=== PATIENT | female | born 1990 | race Caucasian/White ===

== ENCOUNTER 2020-09-19 11:37 | Emergency (ER) | payer SELFPAY ==
--- OUTSIDE RECORDS SUMMARY | 2020-09-19 11:51 | XMS REPORT | Continuity of Care Document ---
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 DIOXIDE (test code = CO2) 23.9 mmol/l 21.0-33.0 N ANION GAP (test code = GAP) 13.4 0-20 N GLUCOSE (test code = GLU) 113 mg/dl 70.0-110.0 H BLOOD UREA NITROGEN (test code = 10 mg/dl 7.0-18.0 N BUN) CREATININE (test code = CREAT) 0.61 mg/dL 0.60-1.30 N GFR NON BLACK (test code = 122 mL/min 105-110 H GFRNONBLACK) GFR BLACK (test code = GFRBLACK) 148 mL/min 127-133 H CALCIUM (test code = CA) 9.3 mg/dl 8.0-10.5 N [id number] 16:44:00 Test Item Value Reference Range Interpretation Comments TROPONIN-I (test <0.02 NG/ML 0.00-0.06 N REFERENCE R ASHUTOSH code = TROPI) TROPONIN I HEA LTHY INDIVIDUALS: < 0.06 ng/mL R/O ISCHE ALEX: 0.07 - 0.60 ng/ mL CUT-OFF RANGE F OR AMI: 0.60 - 1.5 ng/m L [id number] 16:37:00 Test Item Value Reference Range Interpretation Comments D-DIMER/FSP 387 ng/mLFEU 0-500 N Thrombosis and/ or Pulmonary (test code = Embolism and th e DDIMER) clinicalcut-off value for exclusion (500 ng/mL FEU) of theseconditions is validated by the manufact urer of the method. A negat luis D-Dimer result when com bined with a clinicalassessm ent of low pretest probabi lity has been shown to havea high negative predictive valu e of DVT or PE. D-Dimer saira ues >500 ng/mL FEU are n ot diagnostic for DVT,PE, or DIC without other confirmat ory tests and appropriateclin ical evaluations. BASIC METABOLIC [id number] 16:35:00 Test Item Value Reference Range Interpretation Comments SODIUM (test code = NA) 134 mmol/l 134.0-147.0 N POTASSIUM (test code = K) 3.3 mmol/L 3.6-5.2 L CHLORIDE (test code = CL) 100 mmol/l 98.0-107.0 N CARBON DIOXIDE (test code = CO2) 23.9 mmol/l 21.0-33.0 N ANION GAP (test code = GAP) 13.4 0-20 N GLUCOSE (test code = GLU) mg/dl 70.0-110.0 BLOOD UREA NITROGEN (test code = mg/dl 7.0-18.0 BUN) CREATININE (test code = CREAT) mg/dL 0.60-1.30 GFR NON BLACK (test code = mL/min 105-110 GFRNONBLACK) GFR BLACK (test code = GFRBLACK) mL/min 127-133 CALCIUM (test code = CA) mg/dl 8.0-10.5 [id number] 16:35:00 Test Item Value Reference Range Interpretation Comments TROPONIN-I (test code = TROPI) NG/ML 0.00-0.06 CBC W/AUTO [id number] 16:30:00 Test Item Value Reference Range Interpretation Comments WHITE BLOOD CELL (test code = 11.6 K/mm3 4.5-11.0 H WBC) RED BLOOD CELL (test code = 3.87 M/mm3 3.80-5.20 N RBC) HEMOGLOBIN (test code = HGB) 12.8 gm/dL 12.0-16.0 N HEMATOCRIT (test code = HCT) 39.3 % 36.0-48.0 N MEAN CELL VOLUME (test code = 101.6 UM3 82.0-99.0 H MCV) MEAN CELL HGB (test code = MCH) 33.1 UUG 25.5-32.5 H MEAN CELL HGB CONCETRATION 32.6 gm/dL 29.0-35.5 N (test code = MCHC) RED CELL DISTRIBUTION WIDTH 15.9 % 11.5-15.0 H (test code = RDW) RED CELL DISTRIBUTION WIDTH SD 59.7 fL 34.8-50.2 H (test code = RDW-SD) PLATELET COUNT (test code = 472 K/mm3 150-400 H PLT) MEAN PLATELET VOLUME (test code 9.3 fl 7.4-10.4 N = MPV) NEUTROPHIL % (test code = NT%) 59.8 % 49.0-76.0 N IMMATURE GRANULOCYTE % (test 0.6 % 0.0-0.4 H code = IG%) LYMPHOCYTE % (test code = LY%) 28.5 % 23.0-38.0 N MONOCYTE % (test code = MO%) 8.2 % 1.0-10.0 N EOSINOPHIL % (test code = EO%) 2.4 % 1.0-5.0 N BASOPHIL % (test code = BA%) 0.5 % 0.0-1.0 N NUCLEATED RBC % (test code = 0.0 % 0.0-0.1 N NRBC%) NEUTROPHIL # (test code = NT#) 6.9 K/mm3 2.4-6.3 H IMMATURE GRANULOCYTE # (test 0.07 x10 3/uL 0.00-0.07 N code = IG#) LYMPHOCYTE # (test code = LY#) 3.3 K/mm3 1.2-4.0 N MONOCYTE # (test code = MO#) 1.0 K/mm3 0.0-0.6 H EOSINOPHIL # (test code = EO#) 0.3 K/MM3 0.0-0.7 N BASOPHIL # (test code = BA#) 0.1 K/mm3 0.0-0.2 N NUCLEATED RBC # (test code = 0.00 X10 3uL 0.00-0.01 N NRBC#) CBC W/AUTO [id number] 12:27:00 Test Item Value Reference Range Interpretation Comments WHITE BLOOD CELL (test code = 10.6 x10 3/uL 4.5-11.0 N WBC) RED BLOOD CELL (test code = 3.35 x10 6/uL 3.54-5.02 L RBC) HEMOGLOBIN (test code = HGB) 11.2 g/dL 11.0-15.0 N HEMATOCRIT (test code = HCT) 35.7 % 33.0-45.0 N MEAN CELL VOLUME (test code = 106.6 fL 81.0-99.0 H MCV) MEAN CELL HGB (test code = MCH) 33.4 pg 27.0-33.0 H MEAN CELL HGB CONCETRATION 31.4 g/dL 33.0-37.0 L (test code = MCHC) RED CELL DISTRIBUTION WIDTH CV 17.2 % 11.5-14.5 H (test code = RDW) RED CELL DISTRIBUTION WIDTH SD 68.0 fL 37.0-54.0 H (test code = RDW-SD) PLATELET COUNT (test code = 781 x10 3/uL 150-400 H PLT) MEAN PLATELET VOLUME (test code 9.0 fL 7.0-9.0 N = MPV) NEUTROPHIL % (test code = NT%) 58.5 % 56.0-77.0 N IMMATURE GRANULOCYTE % (test 0.8 % 0.0-2.0 N code = IG%) LYMPHOCYTE % (test code = LY%) 30.4 % 14.0-32.0 N MONOCYTE % (test code = MO%) 6.6 % 4.8-9.0 N EOSINOPHIL % (test code = EO%) 2.9 % 0.3-3.7 N BASOPHIL % (test code = BA%) 0.8 % 0.0-2.0 N NUCLEATED RBC % (test code = 0.0 % 0-0 N NRBC%) NEUTROPHIL # (test code = NT#) 6.20 x10 3/uL 2.0-7.6 N IMMATURE GRANULOCYTE # (test 0.09 x10 3/uL 0.00-0.03 H code = IG#) LYMPHOCYTE # (test code = LY#) 3.22 x10 3/uL 1.0-3.8 N MONOCYTE # (test code = MO#) 0.70 x10 3/uL 0.1-0.8 N EOSINOPHIL # (test code = EO#) 0.31 x10 3/uL 0.0-0.2 H BASOPHIL # (test code = BA#) 0.08 x10 3/uL 0.0-0.2 N NUCLEATED RBC # (test code = 0.00 x10 3/uL 0.0-0.1 N NRBC#) MANUAL DIFF REQUIRED (test code NO = MDIFF) RBC [id number] 12:27:00 Test Item Value Reference Range Interpretation Comments POLYCHROMASIA (test code 1+ = POLC) POIKILOCYTOSIS (test code SLIGHT FE W STOMATOCYTES SEEN = POIK) ANISOCYTOSIS (test code = 1+ ANISO) MACROCYTOSIS (test code = 1+ MACR) TARGET CELLS (test code = SEEN TGT) OVALOCYTES (test code = FEW OVAL) - CT ABD PELVIS [id number] 11:38:00 [facility] 1990 Sex: F Name: NNAMDI BARTH [facility] : 1990Age/S: 29 / F [address] [place] [address] Unit #: [id number] Loc: [place] [address] Phys: Paco Ruiz Acct: [id number] Dis Date: Status: REG ER PHONE#: [phone] Exam Date: 06/07/2020 1115 FAX #: [phone] Reason:Diffuse abdominal tenderness, post op with JOHN PAUL d EXAMS: CPT CODE: [id number] CT ABD PELVIS W/CONT 87537 Clinical Indication: Diffuse abdominal tenderness. Postop with JOHN PAUL drain. Comparison: 05/22/2020. TECHNIQUE: Contiguous axial CT images of the abdomen and pelvis were acquired following administration of 100 mL Isovue-300 IV contrast. Oral contrast was not administered. Coronal and sagittal reconstructions were obtained. CT imaging performed at this location utilizes radiation dose optimization techniques which include one or more of the following: -Automated exposure control - Adjustment of the mA and/or kV according to patientsize -Use of iterative reconstruction technique CT Radiation Dose DLP 204.1 mGy-cm FINDINGS: Minimal dependent atelectasis. Visualized cardiac apex is unremarkable. Gallbladder is surgically absent. Common bile duct stent is in place. Intrahepatic bile ducts are decompressed. An infrahepatic drainage catheter is in place extending across the midline, anterior to the stomach. Spleen, pancreas, adrenal glands, and kidneys are unremarkable. No free fluid or pneumoperitoneum. Stomach and small bowelare nondistended. Appendix is nondilated. Colon is unremarkable. Urinary bladder is nondistended. Uterus and adnexal regions are unremarkable. No destructive osseous lesion. IMPRESSION: 1. Status post cholecystectomy with common bile duct stent in place. An infrahepatic drainage catheter is in place extending across midline into the left abdomen. No free fluid or fluid collection. SL: [id number] PAGE 1 Signed Report (CONTINUED) Name: NNAMDI BARTH [facility] : 1990 Age/S: 29 / F [address] [place] [address] Blvd Unit #: [id number] Loc: [place] [address] Phys: Paco Ruiz Acct: [id number] Dis Date: Status: REG ER PHONE #: [phone] Exam Date: 06/07/2020 1115 FAX #: [phone] Reason: Diffuse abdominal tenderness, post op with JOHN PAUL d EXAMS: CPT CODE: [id number] CT ABD PELVIS W/CONT 84111 <Continued> at 1138 Reported and signed by: Cameron Dixon M.D. CC: Ami Poe MD; Paco PRATER Technologist:RT Marita(R); Kateryna CTDI: DLP: Trnscb Date/Time: 06/07/2020 (1138) [id number] Orig Print D/T: S: 06/07/2020 (1142) PAGE 2 Signed ReportCOMPREHENSIVE METABOLIC [id number] 11:37:00 Test Item Value Reference Range Interpretation Comments SODIUM (test code = NA) 137 mEq/L 134-147 N POTASSIUM (test code = 3.6 mEq/L 3.4-5.0 N K) CHLORIDE (test code = 106 mEq/L 100-108 N CL) CARBON DIOXIDE (test 23 mEq/L 21-33 N code = CO2) ANION GAP (test code = 12 0-20 N GAP) GLUCOSE (test code = 131 mg/dL 70-110 H GLU) BLOOD UREA NITROGEN < 5 mg/dL 7-18 L (test code = BUN) GLOMERULAR FILTRATION 144.9 105-110 H Units of measure = RATE (test code = GFR) ml/mi n/1.73 m2 CREATININE (test code = 0.5 mg/dL 0.6-1.3 L CREAT) TOTAL PROTEIN (test 7.2 g/dL 6.4-8.2 N code = PROT) ALBUMIN (test code = 3.10 g/dL 3.4-5.0 L ALB) CALCIUM (test code = 9.3 mg/dL 8.0-10.5 N CA) BILIRUBIN TOTAL (test 0.30 mg/dL 0.0-1.0 N code = BILT) SGOT/AST (test code = 30 IUnit/L 15-37 N AST) SGPT/ALT (test code = 9 IUnit/L 30-65 L ALT) ALKALINE PHOSPHATASE 182 IUnit/L 20-125 H TOTAL (test code = ALKP) [id number] 11:37:00 Test Item Value Reference Range Interpretation Comments LIPASE (test code = LIP) 25 U/L 13-57 N URINALYSIS [id number] 10:57:00 Test Item Value Reference Range Interpretation Comments UA COLOR (test code = COLU) YELLOW YEL/STRAW UA APPEARANCE (test code = APPU) CLEAR CLEAR UA GLUCOSE DIPSTICK (test code = NEGATIVE NEGATIVE DGLUU) UA BILIRUBIN DIPSTICK (test code NEGATIVE NEGATIVE = BILU) UA KETONE DIPSTICK (test code = NEGATIVE NEGATIVE KETU) UA SPECIFIC GRAVITY (test code = 1.014 1.005-1.030 N SGU) UA BLOOD DIPSTICK (test code = NEGATIVE NEGATIVE SUKHDEEP) UA PH DIPSTICK (test code = CHLOE) 6.0 5.0-7.0 N UA PROTEIN DIPSTICK (test code = NEGATIVE NEGATIVE PROU) UA UROBILINIOGEN DIPSTICK (test 0.2 mg/dL 0.2-1.0 code = URO) UA NITRITE DIPSTICK (test code = NEGATIVE NEGATIVE MADONNA) UA LEUKOCYTE ESTERASE DIPSTICK NEGATIVE NEGATIVE (test code = LEUU) UA RBC (test code = RBCU) 0-3 RBC/HPF 0-3 UA WBC NO REFLEX (test code = 0-3 WBC/HPF 0-3 WBCUCL) UA BACTERIA (test code = BACU) TRACE /HPF NONE SEEN UA SQUAMOUS CELLS (test code = 6-10 /HPF NONE SEEN A SQU) UA MUCUS (test code = MUCU) TRACE /LPF NONE SEEN UR HCG [id number] 10:56:00 Test Item Value Reference Range Interpretation Comments UR HCG QUAL (test code = HCGQLU) NEGATIVE NEGATIVE CBC W/AUTO [id number] 10:47:00 Test Item Value Reference Range Interpretation Comments WHITE BLOOD CELL (test code = 10.6 x10 3/uL 4.5-11.0 N WBC) RED BLOOD CELL (test code = 3.35 x10 6/uL 3.54-5.02 L RBC) HEMOGLOBIN (test code = HGB) 11.2 g/dL 11.0-15.0 N HEMATOCRIT (test code = HCT) 35.7 % 33.0-45.0 N MEAN CELL VOLUME (test code = 106.6 fL 81.0-99.0 H MCV) MEAN CELL HGB (test code = MCH) 33.4 pg 27.0-33.0 H MEAN CELL HGB CONCETRATION 31.4 g/dL 33.0-37.0 L (test code = MCHC) RED CELL DISTRIBUTION WIDTH CV 17.2 % 11.5-14.5 H (test code = RDW) RED CELL DISTRIBUTION WIDTH SD 68.0 fL 37.0-54.0 H (test code = RDW-SD) PLATELET COUNT (test code = 781 x10 3/uL 150-400 H PLT) MEAN PLATELET VOLUME (test code 9.0 fL 7.0-9.0 N = MPV) NEUTROPHIL % (test code = NT%) 58.5 % 56.0-77.0 N IMMATURE GRANULOCYTE % (test 0.8 % 0.0-2.0 N code = IG%) LYMPHOCYTE % (test code = LY%) 30.4 % 14.0-32.0 N MONOCYTE % (test code = MO%) 6.6 % 4.8-9.0 N EOSINOPHIL % (test code = EO%) 2.9 % 0.3-3.7 N BASOPHIL % (test code = BA%) 0.8 % 0.0-2.0 N NUCLEATED RBC % (test code = 0.0 % 0-0 N NRBC%) NEUTROPHIL # (test code = NT#) 6.20 x10 3/uL 2.0-7.6 N IMMATURE GRANULOCYTE # (test 0.09 x10 3/uL 0.00-0.03 H code = IG#) LYMPHOCYTE # (test code = LY#) 3.22 x10 3/uL 1.0-3.8 N MONOCYTE # (test code = MO#) 0.70 x10 3/uL 0.1-0.8 N EOSINOPHIL # (test code = EO#) 0.31 x10 3/uL 0.0-0.2 H BASOPHIL # (test code = BA#) 0.08 x10 3/uL 0.0-0.2 N NUCLEATED RBC # (test code = 0.00 x10 3/uL 0.0-0.1 N NRBC#) MANUAL DIFF REQUIRED (test code NO = MDIFF) RBC [id number] 10:47:00 Test Item Value Reference Range Interpretation Comments ANISOCYTOSIS (test code = ANISO) CBC W/AUTO [id number] 10:47:00 Test Item Value Reference Range Interpretation Comments WHITE BLOOD CELL (test code = 10.6 x10 3/uL 4.5-11.0 N WBC) RED BLOOD CELL (test code = 3.35 x10 6/uL 3.54-5.02 L RBC) HEMOGLOBIN (test code = HGB) 11.2 g/dL 11.0-15.0 N HEMATOCRIT (test code = HCT) 35.7 % 33.0-45.0 N MEAN CELL VOLUME (test code = 106.6 fL 81.0-99.0 H MCV) MEAN CELL HGB (test code = MCH) 33.4 pg 27.0-33.0 H MEAN CELL HGB CONCETRATION 31.4 g/dL 33.0-37.0 L (test code = MCHC) RED CELL DISTRIBUTION WIDTH CV 17.2 % 11.5-14.5 H (test code = RDW) RED CELL DISTRIBUTION WIDTH SD 68.0 fL 37.0-54.0 H (test code = RDW-SD) PLATELET COUNT (test code = 781 x10 3/uL 150-400 H PLT) MEAN PLATELET VOLUME (test code 9.0 fL 7.0-9.0 N = MPV) NEUTROPHIL % (test code = NT%) 58.5 % 56.0-77.0 N IMMATURE GRANULOCYTE % (test 0.8 % 0.0-2.0 N code = IG%) LYMPHOCYTE % (test code = LY%) 30.4 % 14.0-32.0 N MONOCYTE % (test code = MO%) 6.6 % 4.8-9.0 N EOSINOPHIL % (test code = EO%) 2.9 % 0.3-3.7 N BASOPHIL % (test code = BA%) 0.8 % 0.0-2.0 N NUCLEATED RBC % (test code = 0.0 % 0-0 N NRBC%) NEUTROPHIL # (test code = NT#) 6.20 x10 3/uL 2.0-7.6 N IMMATURE GRANULOCYTE # (test 0.09 x10 3/uL 0.00-0.03 H code = IG#) LYMPHOCYTE # (test code = LY#) 3.22 x10 3/uL 1.0-3.8 N MONOCYTE # (test code = MO#) 0.70 x10 3/uL 0.1-0.8 N EOSINOPHIL # (test code = EO#) 0.31 x10 3/uL 0.0-0.2 H BASOPHIL # (test code = BA#) 0.08 x10 3/uL 0.0-0.2 N NUCLEATED RBC # (test code = 0.00 x10 3/uL 0.0-0.1 N NRBC#) MANUAL DIFF REQUIRED (test code NO = MDIFF) RBC [id number] 10:47:00 Test Item Value Reference Range Interpretation Comments ANISOCYTOSIS (test code = ANISO) CBC W/AUTO [id number] 10:40:00 Test Item Value Reference Range Interpretation Comments WHITE BLOOD CELL (test code = WBC) x10 3/uL 4.5-11.0 RED BLOOD CELL (test code = RBC) x10 6/uL 3.54-5.02 HEMOGLOBIN (test code = HGB) 11.2 g/dL 11.0-15.0 N HEMATOCRIT (test code = HCT) 35.7 % 33.0-45.0 N MEAN CELL VOLUME (test code = MCV) fL 81.0-99.0 MEAN CELL HGB (test code = MCH) pg 27.0-33.0 MEAN CELL HGB CONCETRATION (test g/dL 33.0-37.0 code = MCHC) RED CELL DISTRIBUTION WIDTH CV % 11.5-14.5 (test code = RDW) PLATELET COUNT (test code = PLT) x10 3/uL 150-400 NEUTROPHIL % (test code = NT%) % 56.0-77.0 LYMPHOCYTE % (test code = LY%) % 14.0-32.0 NEUTROPHIL # (test code = NT#) x10 3/uL 2.0-7.6 LYMPHOCYTE # (test code = LY#) x10 3/uL 1.0-3.8 MANUAL DIFF REQUIRED (test code = MDIFF) [id number] 12:23:00 Test Item Value Reference Range Interpretation Comments GLUBED (test code = 80 MG/DL 70-110 N Performe d by certified GLUBED) 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 SOFT TISSUE [id number] 16:12:00 [facility] : 1990 Sex: F Name: NNAMDI BARTH [facility] : 1990Age/S: 29 / F [address] [place] [address] Blvd Unit #: [id number] Loc: [place] [address] Phys: Luis Marino MD Acct: [id number] Dis Date: Status: ADM IN PHONE#: [phone] Exam Date: 05/30/2020 1332 FAX #: [phone] Reason:nipple abscess EXAMS: CPT CODE: [id number] US SOFT TISSUE TORSO [id number] PROCEDURE: NONVASCULAR SOFT TISSUE ULTRASOUND INDICATION: nipple abscess; 29-year-old female with complaint of superficial lump right breast present for 2 years with recent "skin eruption and discharge" in the last 2 days COMPARISON: There are no previous relevant studies available for correlation. TECHNIQUE: Sonographic evaluation of the right breast, focused to the region of palpable concern was performed using high resolution B-mode imaging, with supplemental Doppler imaging. FINDINGS: There is a superficial hypoechoic elliptical shaped lesion within the skin layers corresponding to region of palpable concern designated 3:00, 2 cm from the nipple right breast. Internal vascularity. No anechoic components. No foci of marked increased echogenicity to indicate gas. Lesion size estimated 16 x 3 mm in the antiradial plane. There is no abnormality in the visualized breast parenchyma. Please note this does not constitute a formal screening survey of the breast. IMPRESSION: Hypoechoic lesion within the skin compatible with benign finding. Inflamed dermal inclusion cyst suspected, to be correlated with clinical findings. SL: [id number] at 1612 Reported and signed by: Bhavesh Kaufman M.D. CC: Technologist: Kourtney Coronado RDMS(AB); Hannah Thomas RDMS(Rolan)(BR) Trnscb Date/Time: 05/30/2020 (1612) Bert Orig Print D/T: S: 05/30/2020 (1615) Probe: PAGE 1 Signed ReportBASIC METABOLIC [id number] 08:51:00 Test Item Value Reference Range Interpretation Comments SODIUM (test code = NA) 139 mEq/L 134-147 N POTASSIUM (test code = 3.7 mEq/L 3.4-5.0 N K) CHLORIDE (test code = 102 mEq/L 100-108 N CL) CARBON DIOXIDE (test 28 mEq/L 21-33 N code = CO2) ANION GAP (test code = 13 0-20 N GAP) GLUCOSE (test code = 81 mg/dL 70-110 N GLU) BLOOD UREA NITROGEN 5 mg/dL 7-18 L (test code = BUN) GLOMERULAR FILTRATION 98.3 105-110 L Units of measure = RATE (test code = GFR) ml/mi n/1.73 m2 CREATININE (test code = 0.7 mg/dL 0.6-1.3 CREAT) CALCIUM (test code = 9.1 mg/dL 8.0-10.5 N CA) CBC W/AUTO [id number] 08:18:00 Test Item Value Reference Range Interpretation Comments WHITE BLOOD CELL (test code = 10.1 x10 3/uL 4.5-11.0 N WBC) RED BLOOD CELL (test code = 2.85 x10 6/uL 3.54-5.02 L RBC) HEMOGLOBIN (test code = HGB) 9.6 g/dL 11.0-15.0 L HEMATOCRIT (test code = HCT) 31.5 % 33.0-45.0 L MEAN CELL VOLUME (test code = 110.5 fL 81.0-99.0 H MCV) MEAN CELL HGB (test code = MCH) 33.7 pg 27.0-33.0 H MEAN CELL HGB CONCETRATION 30.5 g/dL 33.0-37.0 L (test code = MCHC) RED CELL DISTRIBUTION WIDTH CV 16.1 % 11.5-14.5 H (test code = RDW) RED CELL DISTRIBUTION WIDTH SD 66.6 fL 37.0-54.0 H (test code = RDW-SD) PLATELET COUNT (test code = 594 x10 3/uL 150-400 H PLT) MEAN PLATELET VOLUME (test code 10.4 fL 7.0-9.0 H = MPV) NEUTROPHIL % (test code = NT%) 50.5 % 56.0-77.0 L IMMATURE GRANULOCYTE % (test 0.4 % 0.0-2.0 N code = IG%) LYMPHOCYTE % (test code = LY%) 28.6 % 14.0-32.0 N MONOCYTE % (test code = MO%) 12.5 % 4.8-9.0 H EOSINOPHIL % (test code = EO%) 7.5 % 0.3-3.7 H BASOPHIL % (test code = BA%) 0.5 % 0.0-2.0 N NUCLEATED RBC % (test code = 0.0 % 0-0 N NRBC%) NEUTROPHIL # (test code = NT#) 5.11 x10 3/uL 2.0-7.6 N IMMATURE GRANULOCYTE # (test 0.04 x10 3/uL 0.00-0.03 H code = IG#) LYMPHOCYTE # (test code = LY#) 2.89 x10 3/uL 1.0-3.8 N MONOCYTE # (test code = MO#) 1.26 x10 3/uL 0.1-0.8 H EOSINOPHIL # (test code = EO#) 0.76 x10 3/uL 0.0-0.2 H BASOPHIL # (test code = BA#) 0.05 x10 3/uL 0.0-0.2 N NUCLEATED RBC # (test code = 0.00 x10 3/uL 0.0-0.1 N NRBC#) MANUAL DIFF REQUIRED (test code NO = MDIFF) - XR ABDOMEN 1V ([facility])2020-05-29 15:28:00 [facility] : 1990 Sex: F [place]: [address]: ADM Name: NNAMDI BARTH [facility] [place] : 1990 Age/S: 29/F [address] [place] [address] Unit #: [id number] Loc: [place] [address] Phys: Luis Marino MD Acct: [id number] Dis Date: Status: ADM IN PHONE #: [phone] Exam Date: 05/29/2020 1337 FAX #: [phone] Reason: abd pain EXAMS: CPT CODE: [id number] XR ABDOMEN 1V ([facility]) [id number] PROCEDURE: ABDOMEN SINGLE VIEW INDICATION: 29-year-old female with abdominal pain COMPARISON: Abdominal radiograph 03/19/2020 FINDINGS: Nonobstructive bowel gas pattern. There are no abnormal soft tissue masses or calcifications. Cholecystectomy clips in the right upper quadrant. Common bile duct stent noted projecting over the medial right abdomen. Additional tubing noted projecting over the upper abdomen possibly representing a surgical drain. No acute osseous abnormality. IMPRESSION: 1. No acute abdominal abnormality. SL: [id number] at 1528 Reported and signed by: Collette Rod M.D. CC: Technologist: SMITH Duggan) Trnscrd Date/Time/By: 05/29/2020 (1528) : By: [email or web address] Orig Print D/T: S: 05/29/2020 (1538) PAGE 1 Signed ReportCOMPREHENSIVE METABOLIC [id number] 08:32:00 Test Item Value Reference Range Interpretation Comments SODIUM (test code = NA) 134 mEq/L 134-147 N POTASSIUM (test code = 3.7 mEq/L 3.4-5.0 N K) CHLORIDE (test code = 105 mEq/L 100-108 N CL) CARBON DIOXIDE (test 23 mEq/L 21-33 N code = CO2) ANION GAP (test code = 10 0-20 N GAP) GLUCOSE (test code = 78 mg/dL 70-110 N GLU) BLOOD UREA NITROGEN < 5 mg/dL 7-18 L (test code = BUN) GLOMERULAR FILTRATION 144.9 105-110 H Units of measure = RATE (test code = GFR) ml/mi n/1.73 m2 CREATININE (test code = 0.5 mg/dL 0.6-1.3 L CREAT) TOTAL PROTEIN (test 5.9 g/dL 6.4-8.2 L code = PROT) ALBUMIN (test code = 2.20 g/dL 3.4-5.0 L ALB) CALCIUM (test code = 8.2 mg/dL 8.0-10.5 N CA) BILIRUBIN TOTAL (test 0.50 mg/dL 0.0-1.0 N code = BILT) SGOT/AST (test code = 26 IUnit/L 15-37 AST) SGPT/ALT (test code = 9 IUnit/L 30-65 L ALT) ALKALINE PHOSPHATASE 325 IUnit/L 20-125 H TOTAL (test code = ALKP) [id number] 08:32:00 Test Item Value Reference Range Interpretation Comments AMYLASE (test code = OMKAR) 23 UNITS/L 25-115 L [id number] 08:32:00 Test Item Value Reference Range Interpretation Comments LIPASE (test code = LIP) 18 U/L 13-57 N CBC W/AUTO [id number] 07:20:00 Test Item Value Reference Range Interpretation Comments WHITE BLOOD CELL (test code = 9.6 x10 3/uL 4.5-11.0 WBC) RED BLOOD CELL (test code = 2.90 x10 6/uL 3.54-5.02 L RBC) HEMOGLOBIN (test code = HGB) 10.0 g/dL 11.0-15.0 L HEMATOCRIT (test code = HCT) 32.9 % 33.0-45.0 L MEAN CELL VOLUME (test code = 113.4 fL 81.0-99.0 H MCV) MEAN CELL HGB (test code = MCH) 34.5 pg 27.0-33.0 H MEAN CELL HGB CONCETRATION 30.4 g/dL 33.0-37.0 L (test code = MCHC) RED CELL DISTRIBUTION WIDTH CV 15.9 % 11.5-14.5 H (test code = RDW) RED CELL DISTRIBUTION WIDTH SD 67.6 fL 37.0-54.0 H (test code = RDW-SD) PLATELET COUNT (test code = 439 x10 3/uL 150-400 H PLT) MEAN PLATELET VOLUME (test code 11.1 fL 7.0-9.0 H = MPV) NEUTROPHIL % (test code = NT%) 57.4 % 56.0-77.0 N IMMATURE GRANULOCYTE % (test 0.3 % 0.0-2.0 N code = IG%) LYMPHOCYTE % (test code = LY%) 21.4 % 14.0-32.0 N MONOCYTE % (test code = MO%) 11.3 % 4.8-9.0 H EOSINOPHIL % (test code = EO%) 9.1 % 0.3-3.7 H BASOPHIL % (test code = BA%) 0.5 % 0.0-2.0 N NUCLEATED RBC % (test code = 0.0 % 0-0 N NRBC%) NEUTROPHIL # (test code = NT#) 5.48 x10 3/uL 2.0-7.6 N IMMATURE GRANULOCYTE # (test 0.03 x10 3/uL 0.00-0.03 N code = IG#) LYMPHOCYTE # (test code = LY#) 2.04 x10 3/uL 1.0-3.8 N MONOCYTE # (test code = MO#) 1.08 x10 3/uL 0.1-0.8 H EOSINOPHIL # (test code = EO#) 0.87 x10 3/uL 0.0-0.2 H BASOPHIL # (test code = BA#) 0.05 x10 3/uL 0.0-0.2 N NUCLEATED RBC # (test code = 0.00 x10 3/uL 0.0-0.1 N NRBC#) MANUAL DIFF REQUIRED (test code NO = MDIFF) - XR CHEST 1 [id number] 11:28:00 [facility] [facility] 1990 Sex: F [place]: St: ADM Name: NNAMDI BARTH [facility] [place] : 1990 Age/S: 29/F [address] [place] [address] Blvd Unit #: [id number] Loc: G.C145 [place] [address] Phys: Luis Marino MD Acct: [id number] Dis Date: Status: ADM IN PHONE #: [phone] Exam Date: 05/27/2020855 FAX #: [phone] Reason: SOB EXAMS: CPT CODE: [id number] XR CHEST 1 V 46781 Clinical Indication: SOB Comparison: Chest radiograph 05/20/2020 FINDINGS: No focal consolidation, pleural effusion or pneumothorax. The cardiac silhouette is within normal limits. Midline trachea. Noacute osseous abnormalities. Right upper quadrant surgical clips. A biliary stent also overlies the right upper quadrant. IMPRESSION: No acute cardiopulmonary abnormality. SL: SHALOM at 1128 Reported and signed by: Wing Ogden M.D. CC: Technologist: Liane Walters RT(R); RT Emilia(R)Trnsaint elizabeth florence Date/Time/By: 05/27/2020 (1128) : By: [email or web address] Orig Print D/T: S: 05/27/2020 (1131) PAGE 1 Signed ReportUA RFLX MICR CULT IF [id number] 11:02:00 Test Item Value Reference Range Interpretation Comments UA COLOR (test code = COLU) YELLOW YEL/STRAW UA APPEARANCE (test code = CLEAR CLEAR APPU) UA GLUCOSE DIPSTICK (test code NEGATIVE NEGATIVE = DGLUU) UA BILIRUBIN DIPSTICK (test NEGATIVE NEGATIVE code = BILU) UA KETONE DIPSTICK (test code NEGATIVE NEGATIVE = KETU) UA SPECIFIC GRAVITY (test code 1.005 1.005-1.030 N = SGU) UA BLOOD DIPSTICK (test code = NEGATIVE NEGATIVE SUKHDEEP) UA PH DIPSTICK (test code = 7.0 5.0-7.0 N CHLOE) UA PROTEIN DIPSTICK (test code NEGATIVE NEGATIVE = PROU) UA UROBILINIOGEN DIPSTICK 0.2 mg/dL 0.2-1.0 (test code = URO) UA NITRITE DIPSTICK (test code NEGATIVE NEGATIVE = MADONNA) UA LEUKOCYTE ESTERASE DIPSTICK NEGATIVE NEGATIVE (test code = LEUU) UA WBC (test code = WBCU) 0-3 WBC/HPF 0-3 UA RBC (test code = RBCU) 0-3 RBC/HPF 0-3 UA WBC NO REFLEX (test code = 0-3 WBC/HPF 0-3 WBCUCL) UA BACTERIA (test code = BACU) NONE SEEN /HPF NONE SEEN UA SQUAMOUS CELLS (test code = 0-5 /HPF NONE SEEN SQU) Cath type: Temporary/indwellingIN date: 05/23/20IN time: 1555DC date: 05/26/20DC time: 0600Elapse time: 62 Hrs 05 MinsIndication for culture: Dysuria/FrequencySpecimen Description: STRAIGHT CATHBASIC METABOLIC PANEL 2020-05-27 04:36:00 Test Item Value Reference Range Interpretation Comments SODIUM (test code = NA) 136 mEq/L 134-147 N POTASSIUM (test code = 3.6 mEq/L 3.4-5.0 N K) CHLORIDE (test code = 103 mEq/L 100-108 N CL) CARBON DIOXIDE (test 26 mEq/L 21-33 N code = CO2) ANION GAP (test code = 10 0-20 N GAP) GLUCOSE (test code = 108 mg/dL 70-110 N GLU) BLOOD UREA NITROGEN 8 mg/dL 7-18 (test code = BUN) GLOMERULAR FILTRATION 98.3 105-110 L Units of measure = RATE (test code = GFR) ml/mi n/1.73 m2 CREATININE (test code = 0.7 mg/dL 0.6-1.3 N CREAT) CALCIUM (test code = 8.4 mg/dL 8.0-10.5 N CA) CBC W/AUTO [id number] 04:20:00 Test Item Value Reference Range Interpretation Comments WHITE BLOOD CELL (test code = 17.2 x10 3/uL 4.5-11.0 H WBC) RED BLOOD CELL (test code = 2.80 x10 6/uL 3.54-5.02 L RBC) HEMOGLOBIN (test code = HGB) 9.6 g/dL 11.0-15.0 L HEMATOCRIT (test code = HCT) 30.6 % 33.0-45.0 L MEAN CELL VOLUME (test code = 109.3 fL 81.0-99.0 H MCV) MEAN CELL HGB (test code = 34.3 pg 27.0-33.0 H MCH) MEAN CELL HGB CONCETRATION 31.4 g/dL 33.0-37.0 L (test code = MCHC) RED CELL DISTRIBUTION WIDTH CV 16.0 % 11.5-14.5 H (test code = RDW) RED CELL DISTRIBUTION WIDTH SD 65.5 fL 37.0-54.0 H (test code = RDW-SD) PLATELET COUNT (test code = 464 x10 3/uL 150-400 H PLT) MEAN PLATELET VOLUME (test 10.6 fL 7.0-9.0 H code = MPV) NEUTROPHIL % (test code = NT%) 75.8 % 56.0-77.0 N IMMATURE GRANULOCYTE % (test 0.4 % 0.0-2.0 N code = IG%) LYMPHOCYTE % (test code = LY%) 13.9 % 14.0-32.0 L MONOCYTE % (test code = MO%) 7.9 % 4.8-9.0 N EOSINOPHIL % (test code = EO%) 1.5 % 0.3-3.7 N BASOPHIL % (test code = BA%) 0.5 % 0.0-2.0 N NUCLEATED RBC % (test code = 0.0 % 0-0 N NRBC%) NEUTROPHIL # (test code = NT#) 13.05 x10 3/uL 2.0-7.6 H IMMATURE GRANULOCYTE # (test 0.07 x10 3/uL 0.00-0.03 H code = IG#) LYMPHOCYTE # (test code = LY#) 2.38 x10 3/uL 1.0-3.8 N MONOCYTE # (test code = MO#) 1.35 x10 3/uL 0.1-0.8 H EOSINOPHIL # (test code = EO#) 0.25 x10 3/uL 0.0-0.2 H BASOPHIL # (test code = BA#) 0.08 x10 3/uL 0.0-0.2 N NUCLEATED RBC # (test code = 0.00 x10 3/uL 0.0-0.1 N NRBC#) MANUAL DIFF REQUIRED (test NO code = MDIFF) HEPATIC FUNCTION [id number] 11:09:00 Test Item Value Reference Range Interpretation Comments TOTAL PROTEIN (test code = PROT) 5.6 g/dL 6.4-8.2 L ALBUMIN (test code = ALB) 2.30 g/dL 3.4-5.0 L BILIRUBIN TOTAL (test code = 0.60 mg/dL 0.0-1.0 N BILT) BILIRUBIN DIRECT (test code = 0.40 MG/DL 0.0-0.30 H BILD) BILIRUBIN INDIRECT (test code = 0.20 MG/DL BILIND) SGOT/AST (test code = AST) 15 IUnit/L 15-37 N SGPT/ALT (test code = ALT) < 7 IUnit/L 30-65 L ALKALINE PHOSPHATASE TOTAL (test 436 IUnit/L 20-125 H code = ALKP) BASIC METABOLIC [id number] 07:50:00 Test Item Value Reference Range Interpretation Comments SODIUM (test code = NA) 139 mEq/L 134-147 N POTASSIUM (test code = 4.2 mEq/L 3.4-5.0 K) CHLORIDE (test code = 104 mEq/L 100-108 N CL) CARBON DIOXIDE (test 29 mEq/L 21-33 N code = CO2) ANION GAP (test code = 10 0-20 N GAP) GLUCOSE (test code = 96 mg/dL 70-110 N GLU) BLOOD UREA NITROGEN < 5 mg/dL 7-18 L (test code = BUN) GLOMERULAR FILTRATION 117.4 105-110 H Units of measure = RATE (test code = GFR) ml/mi n/1.73 m2 CREATININE (test code = 0.6 mg/dL 0.6-1.3 N CREAT) CALCIUM (test code = 9.1 mg/dL 8.0-10.5 N CA) TOTAL IRON BINDING [id number] 07:44:00 Test Item Value Reference Range Interpretation Comments SERUM IRON (test code = IRON) 9 mcg/dL 35-150 L TOTAL IRON BINDING CAPACITY (test 184 mcg/dL 260-445 L code = TIBC) UIBC (test code = UIBC) 175 mcg/dL IRON SATURATION (test code = 4.9 % 14-34 L FESAT) VITAMIN [id number] 07:44:00 Test Item Value Reference Range Interpretation Comments VITAMIN B12 (test code = VITB12) 723 pg/mL 193-986 N [id number] 07:44:00 Test Item Value Reference Range Interpretation Comments FERRITIN (test code = ABEBA) 191.1 ng/mL 11.0-306.8 N CBC W/AUTO [id number] 04:22:00 Test Item Value Reference Range Interpretation Comments WHITE BLOOD CELL (test code = 13.7 x10 3/uL 4.5-11.0 H WBC) RED BLOOD CELL (test code = 3.23 x10 6/uL 3.54-5.02 L RBC) HEMOGLOBIN (test code = HGB) 11.2 g/dL 11.0-15.0 N HEMATOCRIT (test code = HCT) 36.1 % 33.0-45.0 N MEAN CELL VOLUME (test code = 111.8 fL 81.0-99.0 H MCV) MEAN CELL HGB (test code = MCH) 34.7 pg 27.0-33.0 H MEAN CELL HGB CONCETRATION 31.0 g/dL 33.0-37.0 L (test code = MCHC) RED CELL DISTRIBUTION WIDTH CV 16.0 % 11.5-14.5 H (test code = RDW) RED CELL DISTRIBUTION WIDTH SD 67.7 fL 37.0-54.0 H (test code = RDW-SD) PLATELET COUNT (test code = 509 x10 3/uL 150-400 H PLT) MEAN PLATELET VOLUME (test code 9.3 fL 7.0-9.0 H = MPV) NEUTROPHIL % (test code = NT%) 67.2 % 56.0-77.0 N IMMATURE GRANULOCYTE % (test 0.5 % 0.0-2.0 N code = IG%) LYMPHOCYTE % (test code = LY%) 21.3 % 14.0-32.0 N MONOCYTE % (test code = MO%) 8.2 % 4.8-9.0 N EOSINOPHIL % (test code = EO%) 2.4 % 0.3-3.7 N BASOPHIL % (test code = BA%) 0.4 % 0.0-2.0 N NUCLEATED RBC % (test code = 0.0 % 0-0 N NRBC%) NEUTROPHIL # (test code = NT#) 9.23 x10 3/uL 2.0-7.6 H IMMATURE GRANULOCYTE # (test 0.07 x10 3/uL 0.00-0.03 H code = IG#) LYMPHOCYTE # (test code = LY#) 2.92 x10 3/uL 1.0-3.8 N MONOCYTE # (test code = MO#) 1.12 x10 3/uL 0.1-0.8 H EOSINOPHIL # (test code = EO#) 0.33 x10 3/uL 0.0-0.2 H BASOPHIL # (test code = BA#) 0.06 x10 3/uL 0.0-0.2 N NUCLEATED RBC # (test code = 0.00 x10 3/uL 0.0-0.1 N NRBC#) MANUAL DIFF REQUIRED (test code NO = MDIFF) CBC W/AUTO [id number] 10:20:00 Test Item Value Reference Range Interpretation Comments WHITE BLOOD CELL (test code = 7.3 x10 3/uL 4.5-11.0 N WBC) RED BLOOD CELL (test code = 2.82 x10 6/uL 3.54-5.02 L RBC) HEMOGLOBIN (test code = HGB) 9.7 g/dL 11.0-15.0 L HEMATOCRIT (test code = HCT) 31.0 % 33.0-45.0 L MEAN CELL VOLUME (test code = 109.9 fL 81.0-99.0 H MCV) MEAN CELL HGB (test code = MCH) 34.4 pg 27.0-33.0 H MEAN CELL HGB CONCETRATION 31.3 g/dL 33.0-37.0 L (test code = MCHC) RED CELL DISTRIBUTION WIDTH CV 15.2 % 11.5-14.5 H (test code = RDW) RED CELL DISTRIBUTION WIDTH SD 61.7 fL 37.0-54.0 H (test code = RDW-SD) PLATELET COUNT (test code = 462 x10 3/uL 150-400 H PLT) MEAN PLATELET VOLUME (test code 9.9 fL 7.0-9.0 H = MPV) NEUTROPHIL % (test code = NT%) 54.7 % 56.0-77.0 L IMMATURE GRANULOCYTE % (test 0.5 % 0.0-2.0 N code = IG%) LYMPHOCYTE % (test code = LY%) 33.0 % 14.0-32.0 H MONOCYTE % (test code = MO%) 7.0 % 4.8-9.0 N EOSINOPHIL % (test code = EO%) 4.7 % 0.3-3.7 H BASOPHIL % (test code = BA%) 0.1 % 0.0-2.0 N NUCLEATED RBC % (test code = 0.0 % 0-0 N NRBC%) NEUTROPHIL # (test code = NT#) 3.98 x10 3/uL 2.0-7.6 N IMMATURE GRANULOCYTE # (test 0.04 x10 3/uL 0.00-0.03 H code = IG#) LYMPHOCYTE # (test code = LY#) 2.40 x10 3/uL 1.0-3.8 N MONOCYTE # (test code = MO#) 0.51 x10 3/uL 0.1-0.8 N EOSINOPHIL # (test code = EO#) 0.34 x10 3/uL 0.0-0.2 H BASOPHIL # (test code = BA#) 0.01 x10 3/uL 0.0-0.2 N NUCLEATED RBC # (test code = 0.00 x10 3/uL 0.0-0.1 N NRBC#) MANUAL DIFF REQUIRED (test code NO = MDIFF) RBC [id number] 10:20:00 Test Item Value Reference Range Interpretation Comments POLYCHROMASIA (test code = POLC) 1+ POIKILOCYTOSIS (test code = POIK) SLIGHT ANISOCYTOSIS (test code = ANISO) 1+ MACROCYTOSIS (test code = MACR) 2+ TARGET CELLS (test code = TGT) FEW TEAR DROP CELLS (test code = TEAR) FEW SCHISTOCYTES (test code = TENISHA) RARE COMPREHENSIVE METABOLIC [id number] 08:10:00 Test Item Value Reference Range Interpretation Comments SODIUM (test code = NA) 140 mEq/L 134-147 N POTASSIUM (test code = 3.4 mEq/L 3.4-5.0 K) CHLORIDE (test code = 106 mEq/L 100-108 N CL) CARBON DIOXIDE (test 30 mEq/L 21-33 N code = CO2) ANION GAP (test code = 7 0-20 N GAP) GLUCOSE (test code = 88 mg/dL 70-110 N GLU) BLOOD UREA NITROGEN < 5 mg/dL 7-18 L (test code = BUN) GLOMERULAR FILTRATION 144.9 105-110 H Units of measure = RATE (test code = GFR) ml/mi n/1.73 m2 CREATININE (test code = 0.5 mg/dL 0.6-1.3 L CREAT) TOTAL PROTEIN (test 5.5 g/dL 6.4-8.2 L code = PROT) ALBUMIN (test code = 2.20 g/dL 3.4-5.0 L ALB) CALCIUM (test code = 9.1 mg/dL 8.0-10.5 N CA) BILIRUBIN TOTAL (test 0.60 mg/dL 0.0-1.0 N code = BILT) SGOT/AST (test code = 13 IUnit/L 15-37 L AST) SGPT/ALT (test code = < 7 IUnit/L 30-65 L ALT) ALKALINE PHOSPHATASE 499 IUnit/L 20-125 H TOTAL (test code = ALKP) CBC W/AUTO [id number] 07:40:00 Test Item Value Reference Range Interpretation Comments WHITE BLOOD CELL (test code = 7.3 x10 3/uL 4.5-11.0 N WBC) RED BLOOD CELL (test code = 2.82 x10 6/uL 3.54-5.02 L RBC) HEMOGLOBIN (test code = HGB) 9.7 g/dL 11.0-15.0 L HEMATOCRIT (test code = HCT) 31.0 % 33.0-45.0 L MEAN CELL VOLUME (test code = 109.9 fL 81.0-99.0 H MCV) MEAN CELL HGB (test code = MCH) 34.4 pg 27.0-33.0 H MEAN CELL HGB CONCETRATION 31.3 g/dL 33.0-37.0 L (test code = MCHC) RED CELL DISTRIBUTION WIDTH CV 15.2 % 11.5-14.5 H (test code = RDW) RED CELL DISTRIBUTION WIDTH SD 61.7 fL 37.0-54.0 H (test code = RDW-SD) PLATELET COUNT (test code = 462 x10 3/uL 150-400 H PLT) MEAN PLATELET VOLUME (test code 9.9 fL 7.0-9.0 H = MPV) NEUTROPHIL % (test code = NT%) 54.7 % 56.0-77.0 L IMMATURE GRANULOCYTE % (test 0.5 % 0.0-2.0 N code = IG%) LYMPHOCYTE % (test code = LY%) 33.0 % 14.0-32.0 H MONOCYTE % (test code = MO%) 7.0 % 4.8-9.0 N EOSINOPHIL % (test code = EO%) 4.7 % 0.3-3.7 H BASOPHIL % (test code = BA%) 0.1 % 0.0-2.0 N NUCLEATED RBC % (test code = 0.0 % 0-0 N NRBC%) NEUTROPHIL # (test code = NT#) 3.98 x10 3/uL 2.0-7.6 N IMMATURE GRANULOCYTE # (test 0.04 x10 3/uL 0.00-0.03 H code = IG#) LYMPHOCYTE # (test code = LY#) 2.40 x10 3/uL 1.0-3.8 N MONOCYTE # (test code = MO#) 0.51 x10 3/uL 0.1-0.8 N EOSINOPHIL # (test code = EO#) 0.34 x10 3/uL 0.0-0.2 H BASOPHIL # (test code = BA#) 0.01 x10 3/uL 0.0-0.2 N NUCLEATED RBC # (test code = 0.00 x10 3/uL 0.0-0.1 N NRBC#) MANUAL DIFF REQUIRED (test code NO = MDIFF) RBC [id number] 07:40:00 Test Item Value Reference Range Interpretation Comments ANISOCYTOSIS (test code = ANISO) CBC W/AUTO [id number] 07:40:00 Test Item Value Reference Range Interpretation Comments WHITE BLOOD CELL (test code = 7.3 x10 3/uL 4.5-11.0 N WBC) RED BLOOD CELL (test code = 2.82 x10 6/uL 3.54-5.02 L RBC) HEMOGLOBIN (test code = HGB) 9.7 g/dL 11.0-15.0 L HEMATOCRIT (test code = HCT) 31.0 % 33.0-45.0 L MEAN CELL VOLUME (test code = 109.9 fL 81.0-99.0 H MCV) MEAN CELL HGB (test code = MCH) 34.4 pg 27.0-33.0 H MEAN CELL HGB CONCETRATION 31.3 g/dL 33.0-37.0 L (test code = MCHC) RED CELL DISTRIBUTION WIDTH CV 15.2 % 11.5-14.5 H (test code = RDW) RED CELL DISTRIBUTION WIDTH SD 61.7 fL 37.0-54.0 H (test code = RDW-SD) PLATELET COUNT (test code = 462 x10 3/uL 150-400 H PLT) MEAN PLATELET VOLUME (test code 9.9 fL 7.0-9.0 H = MPV) NEUTROPHIL % (test code = NT%) 54.7 % 56.0-77.0 L IMMATURE GRANULOCYTE % (test 0.5 % 0.0-2.0 N code = IG%) LYMPHOCYTE % (test code = LY%) 33.0 % 14.0-32.0 H MONOCYTE % (test code = MO%) 7.0 % 4.8-9.0 N EOSINOPHIL % (test code = EO%) 4.7 % 0.3-3.7 H BASOPHIL % (test code = BA%) 0.1 % 0.0-2.0 N NUCLEATED RBC % (test code = 0.0 % 0-0 N NRBC%) NEUTROPHIL # (test code = NT#) 3.98 x10 3/uL 2.0-7.6 N IMMATURE GRANULOCYTE # (test 0.04 x10 3/uL 0.00-0.03 H code = IG#) LYMPHOCYTE # (test code = LY#) 2.40 x10 3/uL 1.0-3.8 N MONOCYTE # (test code = MO#) 0.51 x10 3/uL 0.1-0.8 N EOSINOPHIL # (test code = EO#) 0.34 x10 3/uL 0.0-0.2 H BASOPHIL # (test code = BA#) 0.01 x10 3/uL 0.0-0.2 N NUCLEATED RBC # (test code = 0.00 x10 3/uL 0.0-0.1 N NRBC#) MANUAL DIFF REQUIRED (test code NO = DAYANNA) RBC [id number] 07:40:00 Test Item Value Reference Range Interpretation Comments ANISOCYTOSIS (test code = ANISO) - XR FLUOROSCOPY 0-60 [id number] 15:12:00 [facility] 1990 Sex: F FAX: Roney Calderón MD [phone] [place]: St: ADM Name: NNAMDI BARTH [facility] : 1990 Age/S: 29/F [address] [place] [address] Unit #: [id number] Loc: G.C145 [place] [address] Phys: Roney Haynes MD Acct: [id number] Dis Date: Status: ADM IN PHONE #: [phone] Exam Date: 05/24/2020 1420 FAX #: [phone] 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 Any images obtained were interpreted by the surgeonintraoperatively. Fluoroscopy time: 50 seconds Reference Air Kerma: 4.3 mGy SL: [id number] at 1512 Reported and signed by: Bridgett Da Silva D.O. CC: Roney Haynes MD Technologist: RT Olga Lidia(R) Trnscrd Date/Time/By: 05/24/2020 (1511) : By: [email or web address] Orig Print D/T: S: 05/24/2020 (1515) PAGE 1 Signed Report COVID 19 Asymptomatic IH [id number] 11:50:00 Test Item Value Reference Range Interpretation Comments COVID 19 Asymptomatic Negative Negative A nega tive result is IH AG (test code = presumpti ve and should COVNONPUIAG) be confirmedwit h an FDA authorized mole cular assay, if neces eve forpatient daljit gement.A positive result does not rule out co-inf ections withother patho gens.This test detects servando th viable (live) and non-viable,SARS -CoV, and SARS-CoV-2. Etelvina t performance dep ends on theamount of vi sharyn (antigen) in th e sample.This etelvian t has not been FDA cleare d or approved; the t est hasbeen authori zed by FDA under an Em ergency Use Authorizati on(EUA) for use by labo ratories certified under the CLIA thatmeet the requirements to perform moderate, high or waivedcomplexit y tests. COMMENTS: If not done this admissionCOMPREHENSIVE METABOLIC [id number] 08:23:00 Test Item Value Reference Range Interpretation Comments SODIUM (test code = NA) 134 mEq/L 134-147 N POTASSIUM (test code = 4.6 mEq/L 3.4-5.0 K) CHLORIDE (test code = 102 mEq/L 100-108 N CL) CARBON DIOXIDE (test 27 mEq/L 21-33 N code = CO2) ANION GAP (test code = 10 0-20 N GAP) GLUCOSE (test code = 82 mg/dL 70-110 N GLU) BLOOD UREA NITROGEN < 5 mg/dL 7-18 L (test code = BUN) GLOMERULAR FILTRATION 144.9 105-110 H Units of measure = RATE (test code = GFR) ml/mi n/1.73 m2 CREATININE (test code = 0.5 mg/dL 0.6-1.3 L CREAT) TOTAL PROTEIN (test 5.9 g/dL 6.4-8.2 L code = PROT) ALBUMIN (test code = 2.50 g/dL 3.4-5.0 L ALB) CALCIUM (test code = 9.0 mg/dL 8.0-10.5 N CA) BILIRUBIN TOTAL (test 0.80 mg/dL 0.0-1.0 N code = BILT) SGOT/AST (test code = 23 IUnit/L 15-37 N AST) SGPT/ALT (test code = 9 IUnit/L 30-65 L ALT) ALKALINE PHOSPHATASE 634 IUnit/L 20-125 H TOTAL (test code = ALKP) CBC W/AUTO [id number] 07:29:00 Test Item Value Reference Range Interpretation Comments WHITE BLOOD CELL (test code = 9.4 x10 3/uL 4.5-11.0 N WBC) RED BLOOD CELL (test code = 2.77 x10 6/uL 3.54-5.02 L RBC) HEMOGLOBIN (test code = HGB) 9.4 g/dL 11.0-15.0 L HEMATOCRIT (test code = HCT) 30.1 % 33.0-45.0 L MEAN CELL VOLUME (test code = 108.7 fL 81.0-99.0 H MCV) MEAN CELL HGB (test code = MCH) 33.9 pg 27.0-33.0 H MEAN CELL HGB CONCETRATION 31.2 g/dL 33.0-37.0 L (test code = MCHC) RED CELL DISTRIBUTION WIDTH CV 15.4 % 11.5-14.5 H (test code = RDW) RED CELL DISTRIBUTION WIDTH SD 60.7 fL 37.0-54.0 H (test code = RDW-SD) PLATELET COUNT (test code = 478 x10 3/uL 150-400 H PLT) MEAN PLATELET VOLUME (test code 10.1 fL 7.0-9.0 H = MPV) NEUTROPHIL % (test code = NT%) 73.0 % 56.0-77.0 N IMMATURE GRANULOCYTE % (test 0.4 % 0.0-2.0 N code = IG%) LYMPHOCYTE % (test code = LY%) 20.4 % 14.0-32.0 N MONOCYTE % (test code = MO%) 4.8 % 4.8-9.0 N EOSINOPHIL % (test code = EO%) 0.9 % 0.3-3.7 N BASOPHIL % (test code = BA%) 0.5 % 0.0-2.0 N NUCLEATED RBC % (test code = 0.0 % 0-0 N NRBC%) NEUTROPHIL # (test code = NT#) 6.87 x10 3/uL 2.0-7.6 N IMMATURE GRANULOCYTE # (test 0.04 x10 3/uL 0.00-0.03 H code = IG#) LYMPHOCYTE # (test code = LY#) 1.92 x10 3/uL 1.0-3.8 N MONOCYTE # (test code = MO#) 0.45 x10 3/uL 0.1-0.8 N EOSINOPHIL # (test code = EO#) 0.08 x10 3/uL 0.0-0.2 N BASOPHIL # (test code = BA#) 0.05 x10 3/uL 0.0-0.2 N NUCLEATED RBC # (test code = 0.00 x10 3/uL 0.0-0.1 N NRBC#) MANUAL DIFF REQUIRED (test code NO = MDIFF) BASIC METABOLIC [id number] 04:42:00 Test Item Value Reference Range Interpretation Comments SODIUM (test code = NA) 136 mEq/L 134-147 N POTASSIUM (test code = 3.5 mEq/L 3.4-5.0 K) CHLORIDE (test code = 106 mEq/L 100-108 N CL) CARBON DIOXIDE (test 27 mEq/L 21-33 N code = CO2) ANION GAP (test code = 7 0-20 N GAP) GLUCOSE (test code = 99 mg/dL 70-110 N GLU) BLOOD UREA NITROGEN < 5 mg/dL 7-18 L (test code = BUN) GLOMERULAR FILTRATION 144.9 105-110 H Units of measure = RATE (test code = GFR) ml/mi n/1.73 m2 CREATININE (test code = 0.5 mg/dL 0.6-1.3 L CREAT) CALCIUM (test code = 8.3 mg/dL 8.0-10.5 N CA) CBC W/AUTO [id number] 04:27:00 Test Item Value Reference Range Interpretation Comments WHITE BLOOD CELL (test code = 7.2 x10 3/uL 4.5-11.0 N WBC) RED BLOOD CELL (test code = 2.69 x10 6/uL 3.54-5.02 L RBC) HEMOGLOBIN (test code = HGB) 9.2 g/dL 11.0-15.0 L HEMATOCRIT (test code = HCT) 29.9 % 33.0-45.0 L MEAN CELL VOLUME (test code = 111.2 fL 81.0-99.0 H MCV) MEAN CELL HGB (test code = MCH) 34.2 pg 27.0-33.0 H MEAN CELL HGB CONCETRATION 30.8 g/dL 33.0-37.0 L (test code = MCHC) RED CELL DISTRIBUTION WIDTH CV 16.0 % 11.5-14.5 H (test code = RDW) RED CELL DISTRIBUTION WIDTH SD 66.5 fL 37.0-54.0 H (test code = RDW-SD) PLATELET COUNT (test code = 473 x10 3/uL 150-400 H PLT) MEAN PLATELET VOLUME (test code 8.9 fL 7.0-9.0 N = MPV) NEUTROPHIL % (test code = NT%) 52.5 % 56.0-77.0 L IMMATURE GRANULOCYTE % (test 0.6 % 0.0-2.0 N code = IG%) LYMPHOCYTE % (test code = LY%) 33.6 % 14.0-32.0 H MONOCYTE % (test code = MO%) 6.6 % 4.8-9.0 N EOSINOPHIL % (test code = EO%) 4.9 % 0.3-3.7 H BASOPHIL % (test code = BA%) 1.8 % 0.0-2.0 N NUCLEATED RBC % (test code = 0.0 % 0-0 N NRBC%) NEUTROPHIL # (test code = NT#) 3.77 x10 3/uL 2.0-7.6 N IMMATURE GRANULOCYTE # (test 0.04 x10 3/uL 0.00-0.03 H code = IG#) LYMPHOCYTE # (test code = LY#) 2.41 x10 3/uL 1.0-3.8 N MONOCYTE # (test code = MO#) 0.47 x10 3/uL 0.1-0.8 N EOSINOPHIL # (test code = EO#) 0.35 x10 3/uL 0.0-0.2 H BASOPHIL # (test code = BA#) 0.13 x10 3/uL 0.0-0.2 N NUCLEATED RBC # (test code = 0.00 x10 3/uL 0.0-0.1 N NRBC#) MANUAL DIFF REQUIRED (test code NO = MDIFF) - CT ABD PELVIS [id number] 19:36:00 [facility] : 1990 Sex: F Name: NNAMDI BARTH [facility] : 1990Age/S: 29 / F [address] [place] [address] Unit #: [id number] Loc: [place] [address] Phys: Jordan oRque MD Acct: [id number] Dis Date: Status: ADM IN PHONE#: [phone] Exam Date: 05/22/2020 165 FAX #: [phone] Reason:follow-up abdominal pain EXAMS: CPT CODE: [id number] CT ABD PELVIS W/CONT 12042 CT ABDOMEN AND PELVIS WITH CONTRAST INDICATION: follow-up abdominal pain. Cholecystectomy 4 days prior TECHNIQUE: 100 mL Isovue-300 Intravenous contrast was administered followed by CT imaging of the abdomen and pelvis with axial, coronal and sagittal reconstructions. CT imaging performed at this location utilizes radiation dose optimization technique which includes one or more of the followin) Automated exposure control; 2) Adjustment of the mA and/or kV according to patient's size; 3) Use of iterative reconstruction techniques.DLP (mGy-cm): 338 COMPARISONS: CT abdomen pelvis 05/20/2020. Nuclear medicine hepatobiliary scan 05/21/2020 FINDINGS: There are chronic endplate Schmorl's nodes in the lower thoracic spine. There is no acute osseous fracture. There is a small fat filled, noninflamed periumbilical hernia. There is mild body wall anasarca. There is mild atherosclerotic vascular calcification of the aorta. The aorta reveals no aneurysm or acute process. The inferior vena cava reveals no acute process. There are trace simple density bilateral pleural effusions. There is atelectasis in the lung bases. There is no acute hepatic process. The gallbladder is surgically absent. There is an increased small amount of simple density free ascites fluid in the abdomen and pelvis. There is no intra-abdominal hemorrhage or free gas. The pancreas revealsno acute process. The spleen reveals no acute process. The adrenal glands reveal no acute process or mass. There is no acute renal process. There is new dilation of the urinary bladder measuring 11.2 x 12.5 x PAGE 1 Signed Report (CONTINUED) Name: NNAMDI BARTH [facility] : 1990 Age/S: 29 / F [address] [place] [address] Unit #: [id number] Loc: [place] [address] Phys: Jordan Roque MD Acct: [id number] Dis Date: Status: ADM IN PHONE #: [phone] Exam Date: 05/22/2020 1657 FAX #: [phone] Reason: follow-up abdominal pain EXAMS: CPT CODE: [id number] CT ABD PELVIS W/CONT [id number] <Continued> 16.1 cm for an estimated volume of 1.1 L. There is no acute reproductive structure abnormality. There is a 2.7 cm benign dominant follicle in the left ovary that is decreased compared to 3 days prior. There are benign vascular calcifications in the pelvis. There is underdistention and mucosal thickening of the stomach which could be due to spasm or gastritis. There is no bowel perforation or obstruction. There is no evidence of acute appendicitis. IMPRESSION: 1. There is new dilation of the urinary bladder measuring 11.2 x 12.5 x 16.1 cm for an estimated volume of 1.1 L. This is suspicious for urinary retention. There is no hydronephrosis. 2. There is an increased small amount of simple fluid density nonspecific abdominal ascites in the abdomen and the pelvis. A nuclear medicine hepatobiliary scan revealedno bile leak on 05/21/2020. Clinical correlation is recommended with bilirubin laboratory testing. If there is continued clinical suspicion of bile leak, consider repeat nuclear medicine hepatobiliary scan. 3. There are new trace simple density bilateral pleural effusions. 4. There is underdistention and mucosal thickening of the stomach which could be due to spasm or gastritis. There is no bowel perforation or obstruction. 5. Normal appendix. at 1936 Reported and signed by: Thierry Hu D.O. CC: Jordan Roque MD Technologist:RT Wojciech(R) CTDI: DLP: Trnscb Date/Time: 05/22/2020 (1935) [email or web address] Orig Print D/T: S: 05/22/2020 (1939) PAGE 2 Signed ReportACUTE HEPATITIS [id number] 09:10:00 Test Item Value Reference Range Interpretation Comments AB HEPATITIS A IGM (test NON REACTIVE INDEX NON REACT. code = HAVMAB) AG HEPATITIS B SURFACE NON REACTIVE INDEX NonReactive (test code = HBSAG) AB HEPATITIS B CORE IGM NON REACTIVE INDEX NON REACT. (test code = HBCMAB) AB HEPATITIS C (test code NON REACTIVE INDEX NON REACT. = HCVAB) COMPREHENSIVE METABOLIC [id number] 08:28:00 Test Item Value Reference Range Interpretation Comments SODIUM (test code = NA) 137 mEq/L 134-147 N POTASSIUM (test code = 2.9 mEq/L 3.4-5.0 LL K) CHLORIDE (test code = 105 mEq/L 100-108 N CL) CARBON DIOXIDE (test 26 mEq/L 21-33 N code = CO2) ANION GAP (test code = 9 0-20 N GAP) GLUCOSE (test code = 101 mg/dL 70-110 GLU) BLOOD UREA NITROGEN 6 mg/dL 7-18 L (test code = BUN) GLOMERULAR FILTRATION 144.9 105-110 H Units of measure = RATE (test code = GFR) ml/mi n/1.73 m2 CREATININE (test code = 0.5 mg/dL 0.6-1.3 L CREAT) TOTAL PROTEIN (test 4.9 g/dL 6.4-8.2 L code = PROT) ALBUMIN (test code = 2.10 g/dL 3.4-5.0 L ALB) CALCIUM (test code = 7.8 mg/dL 8.0-10.5 L CA) BILIRUBIN TOTAL (test 0.90 mg/dL 0.0-1.0 N code = BILT) SGOT/AST (test code = 17 IUnit/L 15-37 AST) SGPT/ALT (test code = < 7 IUnit/L 30-65 L ALT) ALKALINE PHOSPHATASE 637 IUnit/L 20-125 H TOTAL (test code = ALKP) [id number] 08:28:00 Test Item Value Reference Range Interpretation Comments AMYLASE (test code = OMKAR) 39 UNITS/L 25-115 N [id number] 08:28:00 Test Item Value Reference Range Interpretation Comments LIPASE (test code = LIP) 24 U/L 13-57 N CBC W/AUTO [id number] 07:21:00 Test Item Value Reference Range Interpretation Comments WHITE BLOOD CELL (test code = 7.2 x10 3/uL 4.5-11.0 N WBC) RED BLOOD CELL (test code = 2.50 x10 6/uL 3.54-5.02 L RBC) HEMOGLOBIN (test code = HGB) 8.6 g/dL 11.0-15.0 L HEMATOCRIT (test code = HCT) 28.1 % 33.0-45.0 L MEAN CELL VOLUME (test code = 112.4 fL 81.0-99.0 H MCV) MEAN CELL HGB (test code = MCH) 34.4 pg 27.0-33.0 H MEAN CELL HGB CONCETRATION 30.6 g/dL 33.0-37.0 L (test code = MCHC) RED CELL DISTRIBUTION WIDTH CV 16.4 % 11.5-14.5 H (test code = RDW) RED CELL DISTRIBUTION WIDTH SD 69.5 fL 37.0-54.0 H (test code = RDW-SD) PLATELET COUNT (test code = 474 x10 3/uL 150-400 H PLT) MEAN PLATELET VOLUME (test code 10.0 fL 7.0-9.0 H = MPV) NEUTROPHIL % (test code = NT%) 47.7 % 56.0-77.0 L IMMATURE GRANULOCYTE % (test 0.6 % 0.0-2.0 N code = IG%) LYMPHOCYTE % (test code = LY%) 36.6 % 14.0-32.0 H MONOCYTE % (test code = MO%) 8.3 % 4.8-9.0 N EOSINOPHIL % (test code = EO%) 5.1 % 0.3-3.7 H BASOPHIL % (test code = BA%) 1.7 % 0.0-2.0 N NUCLEATED RBC % (test code = 0.0 % 0-0 N NRBC%) NEUTROPHIL # (test code = NT#) 3.45 x10 3/uL 2.0-7.6 N IMMATURE GRANULOCYTE # (test 0.04 x10 3/uL 0.00-0.03 H code = IG#) LYMPHOCYTE # (test code = LY#) 2.64 x10 3/uL 1.0-3.8 N MONOCYTE # (test code = MO#) 0.60 x10 3/uL 0.1-0.8 N EOSINOPHIL # (test code = EO#) 0.37 x10 3/uL 0.0-0.2 H BASOPHIL # (test code = BA#) 0.12 x10 3/uL 0.0-0.2 N NUCLEATED RBC # (test code = 0.00 x10 3/uL 0.0-0.1 N NRBC#) MANUAL DIFF REQUIRED (test code NO = MDIFF) URINALYSIS [id number] 01:05:00 Test Item Value Reference Range Interpretation Comments UA COLOR (test code = COLU) YELLOW YEL/STRAW UA APPEARANCE (test code = SL CLOUDY CLEAR APPU) UA GLUCOSE DIPSTICK (test code NEGATIVE NEGATIVE = DGLUU) UA BILIRUBIN DIPSTICK (test NEGATIVE NEGATIVE code = BILU) UA KETONE DIPSTICK (test code = TRACE NEGATIVE A KETU) UA SPECIFIC GRAVITY (test code 1.018 1.005-1.030 N = SGU) UA BLOOD DIPSTICK (test code = NEGATIVE NEGATIVE SUKHDEEP) UA PH DIPSTICK (test code = 5.0 5.0-7.0 N CHLOE) UA PROTEIN DIPSTICK (test code NEGATIVE NEGATIVE = PROU) UA UROBILINIOGEN DIPSTICK (test 4.0 mg/dL 0.2-1.0 A code = URO) UA NITRITE DIPSTICK (test code NEGATIVE NEGATIVE = MADONNA) UA LEUKOCYTE ESTERASE DIPSTICK NEGATIVE NEGATIVE (test code = LEUU) UA RBC (test code = RBCU) 0-3 RBC/HPF 0-3 UA WBC NO REFLEX (test code = 10-20 WBC/HPF 0-3 A WBCUCL) UA BACTERIA (test code = BACU) 1+ /HPF NONE SEEN A UA SQUAMOUS CELLS (test code = 26-35 /HPF NONE SEEN A SQU) UA MUCUS (test code = MUCU) 3+ /LPF NONE SEEN A - HEPA IMAG INCL [id number] 11:43:00 [facility] : 1990 Sex: F FAX: Dilip Gant MD [phone] [place]: [address]: ADM Name: NNAMDI BARTH [facility] : 1990 Age/S: 29/F [address] [place], [place] [address]vd Unit #: [id number] Loc: G.C[address] [place] [address] Phys: Dilip Gant MD Acct: [id number] Dis Date: Status: ADM IN PHONE #: [phone] Exam Date: 05/21/2020 1124 FAX #: [phone] Reason: abd. pain - s/p cholecystectomy EXAMS: CPT CODE: [id number] [place] [id number] Nuclear medicine hepatobiliary scan HISTORY: Recent cholecystectomy. PROCEDURE: After the intravenous injection of 5 mCi of technetium 99m Choletec, anterior projection imaging was performed for 60 minutes. FINDINGS: There is normal hepatic uptake of the radiotracer and excretion into the biliary system. The gallbladder is not visualized compatible with recent cholecystectomy. The small bowel is visualized at 30 minutes. There is no biliary leak identified. IMPRESSION: No bile leak. SL: [id number] at 1143 Reported and signed by: Chris Hood M.D. CC: Dilip Gatn MD Technologist: RT Minerva(R)([facility]) Trnscrd Da te/Time/By: 05/21/2020 (114) : By: [email or web address] Orig Print D/T: S: 05/21/2020 (3770) PAGE 1 Signed ReportCBC W/AUTO [id number] 10:19:00 Test Item Value Reference Range Interpretation Comments WHITE BLOOD CELL (test code = 9.8 x10 3/uL 4.5-11.0 N WBC) RED BLOOD CELL (test code = 3.05 x10 6/uL 3.54-5.02 L RBC) HEMOGLOBIN (test code = HGB) 10.4 g/dL 11.0-15.0 L HEMATOCRIT (test code = HCT) 33.4 % 33.0-45.0 N MEAN CELL VOLUME (test code = 109.5 fL 81.0-99.0 H MCV) MEAN CELL HGB (test code = MCH) 34.1 pg 27.0-33.0 H MEAN CELL HGB CONCETRATION 31.1 g/dL 33.0-37.0 L (test code = MCHC) RED CELL DISTRIBUTION WIDTH CV 16.9 % 11.5-14.5 H (test code = RDW) RED CELL DISTRIBUTION WIDTH SD 68.6 fL 37.0-54.0 H (test code = RDW-SD) PLATELET COUNT (test code = 619 x10 3/uL 150-400 H PLT) MEAN PLATELET VOLUME (test code 10.0 fL 7.0-9.0 H = MPV) NEUTROPHIL % (test code = NT%) 53.4 % 56.0-77.0 L IMMATURE GRANULOCYTE % (test 0.9 % 0.0-2.0 N code = IG%) LYMPHOCYTE % (test code = LY%) 34.2 % 14.0-32.0 H MONOCYTE % (test code = MO%) 8.0 % 4.8-9.0 N EOSINOPHIL % (test code = EO%) 2.1 % 0.3-3.7 N BASOPHIL % (test code = BA%) 1.4 % 0.0-2.0 N NUCLEATED RBC % (test code = 0.0 % 0-0 N NRBC%) NEUTROPHIL # (test code = NT#) 5.21 x10 3/uL 2.0-7.6 N IMMATURE GRANULOCYTE # (test 0.09 x10 3/uL 0.00-0.03 H code = IG#) LYMPHOCYTE # (test code = LY#) 3.33 x10 3/uL 1.0-3.8 N MONOCYTE # (test code = MO#) 0.78 x10 3/uL 0.1-0.8 N EOSINOPHIL # (test code = EO#) 0.20 x10 3/uL 0.0-0.2 N BASOPHIL # (test code = BA#) 0.14 x10 3/uL 0.0-0.2 N NUCLEATED RBC # (test code = 0.00 x10 3/uL 0.0-0.1 N NRBC#) MANUAL DIFF REQUIRED (test code NO = MDIFF) RBC [id number] 10:19:00 Test Item Value Reference Range Interpretation Comments ANISOCYTOSIS (test code = ANISO) 2+ MACROCYTOSIS (test code = MACR) 2+ BASIC METABOLIC [id number] 09:46:00 Test Item Value Reference Range Interpretation Comments SODIUM (test code = NA) 138 mEq/L 134-147 N POTASSIUM (test code = 4.1 mEq/L 3.4-5.0 N K) CHLORIDE (test code = 106 mEq/L 100-108 N CL) CARBON DIOXIDE (test 22 mEq/L 21-33 N code = CO2) ANION GAP (test code = 14 0-20 N GAP) GLUCOSE (test code = 62 mg/dL 70-110 L GLU) BLOOD UREA NITROGEN 6 mg/dL 7-18 L (test code = BUN) GLOMERULAR FILTRATION 144.9 105-110 H Units of measure = RATE (test code = GFR) ml/mi n/1.73 m2 CREATININE (test code = 0.5 mg/dL 0.6-1.3 L CREAT) CALCIUM (test code = 8.0 mg/dL 8.0-10.5 N CA) [id number] 09:46:00 Test Item Value Reference Range Interpretation Comments AMYLASE (test code = OMKAR) 28 UNITS/L 25-115 N Novel Coronavirus [id number] 09:15:00 Test Item Value Reference Range Interpretation Comments Novel Coronavirus Negative Negative Positive r esults are 2019 Inhouse (test indicativ e of the presence code = [id number]) ofSARS-CoV -2 RNA, clinical correlation wit h patient historyand othe r diagnostic info rmation is necessary to determinepatien t infection status. Positiv e results do not rule out bacterial infection or co -infection with other viru ses. Negative result s do not preclude SARS-C oV-2 infection andsh ould not be used as the michele e basis for patient managementdecis ions. Negative result s must be combined with otherclinical observations, p atient history, and epidemiological information . Detection of SARS-CoV-2 RNA may be affe cted bysample collec tion methods, storag e conditions, and /or stageof infection. Franny l RNA mutations, vacc inations, antiviraltherap eutics, antibiotics, chemotherapeuti c orimmunosuppres eloise drugs have not been e valuated for effectson d etection. Results are for the identification of SARS-CoV-2 RNA usingthe Vacunek M2000 Sy stem under the FDA Emergen cy UseAuthorizatio n. The testing is perf ormed by personneltraine d in the procedures for the Huang M2000 molecular diagnostic SARS-CoV-2 assa y in vitro. 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[facility] DRUGS OF ABUSE SCREEN [id number] 08:36:00 Test Item Value Reference Range Interpretation Comments URN COCAINE (test code NEGATIVE NEGATIVE = COCAURN) URN CANNABINOIDS (test NEGATIVE NEGATIVE code = CANNABURN) URN AMPHETAMINE (test NEGATIVE NEGATIVE code = AMPHETURN) URN BARBITURATE (test NEGATIVE NEGATIVE code = BARBITURN) URN BENZODIAZEPINE NEGATIVE NEGATIVE Cut-off v alue:200 (test code = BENZOURN) ng/mL URN OPIATES (test code POSITIVE NEGATIVE A Cut-o ff value:2000 = OPIATURN) ng/mL URN PHENCYCLIDINE (PCP) NEGATIVE NEGATIVE Cuto ffs:Barbiturates (test code = PHENCURN) 200 ng/mLBenzodiaze pines 200 ng/ mLTHC Cannabinoids 50 ng/mLOpiates(Mo rphine) 2000 ng/mLAmphetamin e 1000 ng/mLCocaine 300 ng/ mLPCP phencyclidine 25 ng/mL Unconf irmed screening resul ts shouldnot be us ed for non-medical pur poses. CBC W/AUTO [id number] 07:51:00 Test Item Value Reference Range Interpretation Comments WHITE BLOOD CELL (test code = 9.8 x10 3/uL 4.5-11.0 N WBC) RED BLOOD CELL (test code = 3.05 x10 6/uL 3.54-5.02 L RBC) HEMOGLOBIN (test code = HGB) 10.4 g/dL 11.0-15.0 L HEMATOCRIT (test code = HCT) 33.4 % 33.0-45.0 N MEAN CELL VOLUME (test code = 109.5 fL 81.0-99.0 H MCV) MEAN CELL HGB (test code = MCH) 34.1 pg 27.0-33.0 H MEAN CELL HGB CONCETRATION 31.1 g/dL 33.0-37.0 L (test code = MCHC) RED CELL DISTRIBUTION WIDTH CV 16.9 % 11.5-14.5 H (test code = RDW) RED CELL DISTRIBUTION WIDTH SD 68.6 fL 37.0-54.0 H (test code = RDW-SD) PLATELET COUNT (test code = 619 x10 3/uL 150-400 H PLT) MEAN PLATELET VOLUME (test code 10.0 fL 7.0-9.0 H = MPV) NEUTROPHIL % (test code = NT%) 53.4 % 56.0-77.0 L IMMATURE GRANULOCYTE % (test 0.9 % 0.0-2.0 N code = IG%) LYMPHOCYTE % (test code = LY%) 34.2 % 14.0-32.0 H MONOCYTE % (test code = MO%) 8.0 % 4.8-9.0 N EOSINOPHIL % (test code = EO%) 2.1 % 0.3-3.7 N BASOPHIL % (test code = BA%) 1.4 % 0.0-2.0 N NUCLEATED RBC % (test code = 0.0 % 0-0 N NRBC%) NEUTROPHIL # (test code = NT#) 5.21 x10 3/uL 2.0-7.6 N IMMATURE GRANULOCYTE # (test 0.09 x10 3/uL 0.00-0.03 H code = IG#) LYMPHOCYTE # (test code = LY#) 3.33 x10 3/uL 1.0-3.8 N MONOCYTE # (test code = MO#) 0.78 x10 3/uL 0.1-0.8 N EOSINOPHIL # (test code = EO#) 0.20 x10 3/uL 0.0-0.2 N BASOPHIL # (test code = BA#) 0.14 x10 3/uL 0.0-0.2 N NUCLEATED RBC # (test code = 0.00 x10 3/uL 0.0-0.1 N NRBC#) MANUAL DIFF REQUIRED (test code NO = MDIFF) RBC [id number] 07:51:00 Test Item Value Reference Range Interpretation Comments ANISOCYTOSIS (test code = ANISO) CBC W/AUTO [id number] 07:51:00 Test Item Value Reference Range Interpretation Comments WHITE BLOOD CELL (test code = 9.8 x10 3/uL 4.5-11.0 N WBC) RED BLOOD CELL (test code = 3.05 x10 6/uL 3.54-5.02 L RBC) HEMOGLOBIN (test code = HGB) 10.4 g/dL 11.0-15.0 L HEMATOCRIT (test code = HCT) 33.4 % 33.0-45.0 N MEAN CELL VOLUME (test code = 109.5 fL 81.0-99.0 H MCV) MEAN CELL HGB (test code = MCH) 34.1 pg 27.0-33.0 H MEAN CELL HGB CONCETRATION 31.1 g/dL 33.0-37.0 L (test code = MCHC) RED CELL DISTRIBUTION WIDTH CV 16.9 % 11.5-14.5 H (test code = RDW) RED CELL DISTRIBUTION WIDTH SD 68.6 fL 37.0-54.0 H (test code = RDW-SD) PLATELET COUNT (test code = 619 x10 3/uL 150-400 H PLT) MEAN PLATELET VOLUME (test code 10.0 fL 7.0-9.0 H = MPV) NEUTROPHIL % (test code = NT%) 53.4 % 56.0-77.0 L IMMATURE GRANULOCYTE % (test 0.9 % 0.0-2.0 N code = IG%) LYMPHOCYTE % (test code = LY%) 34.2 % 14.0-32.0 H MONOCYTE % (test code = MO%) 8.0 % 4.8-9.0 N EOSINOPHIL % (test code = EO%) 2.1 % 0.3-3.7 N BASOPHIL % (test code = BA%) 1.4 % 0.0-2.0 N NUCLEATED RBC % (test code = 0.0 % 0-0 N NRBC%) NEUTROPHIL # (test code = NT#) 5.21 x10 3/uL 2.0-7.6 N IMMATURE GRANULOCYTE # (test 0.09 x10 3/uL 0.00-0.03 H code = IG#) LYMPHOCYTE # (test code = LY#) 3.33 x10 3/uL 1.0-3.8 N MONOCYTE # (test code = MO#) 0.78 x10 3/uL 0.1-0.8 N EOSINOPHIL # (test code = EO#) 0.20 x10 3/uL 0.0-0.2 N BASOPHIL # (test code = BA#) 0.14 x10 3/uL 0.0-0.2 N NUCLEATED RBC # (test code = 0.00 x10 3/uL 0.0-0.1 N NRBC#) MANUAL DIFF REQUIRED (test code NO = MDIFF) RBC [id number] 07:51:00 Test Item Value Reference Range Interpretation Comments ANISOCYTOSIS (test code = ANISO) LACTIC ACID [id number] 21:18:00 Test Item Value Reference Range Interpretation Comments LACTIC ACID REPEAT (test code = 1.6 mmol/l 0.4-1.9 N LACTR) CBC W/AUTO [id number] 19:53:00 Test Item Value Reference Range Interpretation Comments WHITE BLOOD CELL (test code = 10.2 x10 3/uL 4.5-11.0 N WBC) RED BLOOD CELL (test code = 3.25 x10 6/uL 3.54-5.02 L RBC) HEMOGLOBIN (test code = HGB) 10.9 g/dL 11.0-15.0 L HEMATOCRIT (test code = HCT) 34.6 % 33.0-45.0 N MEAN CELL VOLUME (test code = 106.5 fL 81.0-99.0 H MCV) MEAN CELL HGB (test code = MCH) 33.5 pg 27.0-33.0 H MEAN CELL HGB CONCETRATION 31.5 g/dL 33.0-37.0 L (test code = MCHC) RED CELL DISTRIBUTION WIDTH CV 16.2 % 11.5-14.5 H (test code = RDW) RED CELL DISTRIBUTION WIDTH SD 64.6 fL 37.0-54.0 H (test code = RDW-SD) PLATELET COUNT (test code = 639 x10 3/uL 150-400 H PLT) MEAN PLATELET VOLUME (test code 9.2 fL 7.0-9.0 H = MPV) NEUTROPHIL % (test code = NT%) 74.1 % 56.0-77.0 N IMMATURE GRANULOCYTE % (test 1.2 % 0.0-2.0 N code = IG%) LYMPHOCYTE % (test code = LY%) 19.8 % 14.0-32.0 N MONOCYTE % (test code = MO%) 3.1 % 4.8-9.0 L EOSINOPHIL % (test code = EO%) 0.4 % 0.3-3.7 N BASOPHIL % (test code = BA%) 1.4 % 0.0-2.0 N NUCLEATED RBC % (test code = 0.0 % 0-0 N NRBC%) NEUTROPHIL # (test code = NT#) 7.54 x10 3/uL 2.0-7.6 N IMMATURE GRANULOCYTE # (test 0.12 x10 3/uL 0.00-0.03 H code = IG#) LYMPHOCYTE # (test code = LY#) 2.01 x10 3/uL 1.0-3.8 N MONOCYTE # (test code = MO#) 0.31 x10 3/uL 0.1-0.8 N EOSINOPHIL # (test code = EO#) 0.04 x10 3/uL 0.0-0.2 N BASOPHIL # (test code = BA#) 0.14 x10 3/uL 0.0-0.2 N NUCLEATED RBC # (test code = 0.00 x10 3/uL 0.0-0.1 N NRBC#) MANUAL DIFF REQUIRED (test code NO = MDIFF) RBC [id number] 19:53:00 Test Item Value Reference Range Interpretation Comments POLYCHROMASIA (test code = POLC) SLIGHT ANISOCYTOSIS (test code = ANISO) 2+ MACROCYTOSIS (test code = MACR) 2+ - CT ABD PELVIS [id number] 19:45:00 [facility] 1990 Sex: F Name: NNAMDI BARTH [facility] [place] : 1990Age/S: 29 / F [address] [place] [address] Blvd Unit #: [id number] Loc: WAQAR [place] [address] Phys: Dilip Gant MD Acct: [id number] Dis Date: Status: REG ER PHONE#: [phone] Exam Date: 05/20/20201908 FAX #: [phone] Reason:abd. pain and distention - s/p cholecystectomy EXAMS: CPT CODE: [id number] CT ABD PELVIS W/CONT 26399 CT ABDOMEN AND PELVIS WITH CONTRAST, INDICATION: abd. pain and distention - s/p cholecystectomy. TECHNIQUE: Axial images were obtained of the abdomen and pelvis followingthe intravenous administration of 100 mL of Isovue-300. CT imaging performed at this locationutilizes radiation dose optimization techniques which include one or more of the following: - Automated exposure control -Adjustment of the mA and/or kV according to patient size-Use of iterative reconstruction technique CT Radiation Dose DLP 220 mGy-cm COMPARISON: None FINDINGS: Lower chest: Visualized lower lungs are clear. Nopleural effusions. Abdomen: Mild hepatic steatosis. Otherwise unremarkable appearance the liver. Status post cholecystectomy. Trace fluid in the cholecystectomy bed. No intrahepatic biliary dilatation. Trace perihepatic fluid. Spleen, adrenal glands and pancreas appear unremarkable. Kidneys are without hydronephrosis or nephrolithiasis. Symmetric renal enhancement. Ureters normal caliber and course without ureterolithiasis. Small and large bowel are nonobstructed. Tiny fat- containing supraumbilical hernia. Mild postoperative changes in the region of the umbilicus from previous laparoscopic port. Mild inflammator y changes in the region of the gastric pylorus and proximal duodenum likely postoperative. Free pelvic fluid identified in the paracolic gutters. Pelvis: Moderate free pelvic fluid. There is suggestion of a round area of low density in the left neck possibly cyst is difficult to estimate from the adjacent free fluid.. Otherwise pelvic viscera appear unremarkable Musculoskeletal: No aggressive appearing osteolytic or osteoblastic lesions. IMPRESSION: 1. Moderate free pelvic fluid. Small volume of perihepatic fluid and PAGE 1 Signed Report (CONTINUED) Name: NNAMDI BRATH [facility] : 1990 Age/S: 29 / F [address] [place] [address] Unit #: [id number] Loc: [place] [address] Phys: Dilip Gant MD Acct: [id number] Dis Date: Status: REG ER PHONE #: [phone] Exam Date: 05/20/20201908 FAX #: [phone] Reason: abd. pain and distention - s/p cholecystectomy EXAMS:CPT CODE: [id number] CT ABD PELVIS W/CONT 39341 <Continued> fluid in the paracolic gutters. Correlate clinically. If concern for bile leak consider hepatobiliary scintigraphy. 2. Cholecystectomy. Trace fluid in the cho lecystectomy bed.. 3. Possible left adnexal/ovarian cyst. SL: CN-H at 1945 Reported and signed by: Edward Londono M.D. CC: Dilip Gant MD Technologist:Garry Wang, RT(R)(CT) CTDI: DLP: Trnscb Date/Time: 05/20/2020 (1944) [email or web address] Orig Print D/T: S: 05/20/2020 (1947) PAGE 2 S igned Report- XR CHEST 1 [id number] 18:44:00 [facility] : 1990 Sex: F FAX: Dilip Gant MD [phone] [place]: St: PRE Name: NNAMDI BARTH [facility] : 1990 Age/S: 29/F [address] [place] [address] Unit #: [id number] Loc: [address] [place] [address] Phys: Dilip Gant MD Acct: [id number] Dis Date: Status: PRE ER PHONE #: [phone] Exam Date: 05/20/20201825 FAX #: [phone] Reason: abd. pain and distention - s/p cholecystectomy EXAMS: CPT CODE: [id number] XR CHEST 1 V [id number] FRONTAL CHEST, 05/20/2020 5:51 PM : HISTORY: abd. pain and distention - s/p cholecystectomy. COMPARISON: 03/18/2020 FINDINGS: Heart size and vascularity are within normal limits. The lungs areclear of focal consolidation. No effusion, pneumothorax, or acute osseous abnormality. IMPRESSION: 1. No radiographic evidence of acute cardiopulmonary process. SL: JESSICA at 1844 Reported and signed by: Edward Londono M.D. CC: Dilip Gant MD Technologist: RT Jose(R); RT Grecia(R) Trnkyrd Date/Time/By: 05/20/2020 (1843) : By: [email or web address] Orig Print D/T: S: 05/20/2020 (1846) PAGE 1 Signed ReportCOMPREHENSIVE METABOLIC [id number] 18:37:00 Test Item Value Reference Range Interpretation Comments SODIUM (test code = NA) 138 mEq/L 134-147 N POTASSIUM (test code = 4.2 mEq/L 3.4-5.0 N K) CHLORIDE (test code = 104 mEq/L 100-108 N CL) CARBON DIOXIDE (test 22 mEq/L 21-33 N code = CO2) ANION GAP (test code = 16 0-20 N GAP) GLUCOSE (test code = 65 mg/dL 70-110 L GLU) BLOOD UREA NITROGEN 6 mg/dL 7-18 L (test code = BUN) GLOMERULAR FILTRATION 144.9 105-110 H Units of measure = RATE (test code = GFR) ml/mi n/1.73 m2 CREATININE (test code = 0.5 mg/dL 0.6-1.3 L CREAT) TOTAL PROTEIN (test 6.6 g/dL 6.4-8.2 N code = PROT) ALBUMIN (test code = 3.00 g/dL 3.4-5.0 L ALB) CALCIUM (test code = 8.4 mg/dL 8.0-10.5 N CA) BILIRUBIN TOTAL (test 0.90 mg/dL 0.0-1.0 N code = BILT) SGOT/AST (test code = 53 IUnit/L 15-37 H AST) SGPT/ALT (test code = 18 IUnit/L 30-65 L ALT) ALKALINE PHOSPHATASE 536 IUnit/L 20-125 H TOTAL (test code = ALKP) [id number] 18:37:00 Test Item Value Reference Range Interpretation Comments LIPASE (test code = LIP) 29 U/L 13-57 N HCG SERUM [id number] 18:37:00 Test Item Value Reference Range Interpretation Comments HCG SERUM QUAL (test code = SERUM NEGATIVE NEGATIVE HCGQL) [id number] 18:37:00 Test Item Value Reference Range Interpretation Comments ALCOHOL (test 264.4 mg/dL <10 HH Ethyl Alcohol code = ALC) Interpretation: 100 mg/dL - Legally Intoxicated 300-400 mg/dL - Severely Intoxi cated >400 mg/dL - Potentially Let halThe pharmacological response to blood alcoho l levels mayvary from in dividual to individual. Signs of intoxicationcan be observed at lev els of 50-100 mg/dL. R esults are for Medical pur poses only, and not f or Legal orEmployment ev aluation purposes. [id number] 18:37:00 Test Item Value Reference Range Interpretation Comments AMMONIA (test code = AMM) < 10 umol/L 11-35 L LACTIC [id number] 18:32:00 Test Item Value Reference Range Interpretation Comments LACTIC ACID (test code = LACT) 2.7 mmol/L 0.4-1.9 H COMPREHENSIVE METABOLIC [id number] 18:28:00 Test Item Value Reference Range Interpretation Comments SODIUM (test code = NA) mEq/L 134-147 POTASSIUM (test code = K) mEq/L 3.4-5.0 CHLORIDE (test code = CL) mEq/L 100-108 CARBON DIOXIDE (test code = CO2) mEq/L 21-33 ANION GAP (test code = GAP) 0-20 GLUCOSE (test code = GLU) mg/dL 70-110 BLOOD UREA NITROGEN (test code = mg/dL 7-18 BUN) GLOMERULAR FILTRATION RATE (test 105-110 code = GFR) CREATININE (test code = CREAT) mg/dL 0.6-1.3 TOTAL PROTEIN (test code = PROT) g/dL 6.4-8.2 ALBUMIN (test code = ALB) g/dL 3.4-5.0 CALCIUM (test code = CA) mg/dL 8.0-10.5 BILIRUBIN TOTAL (test code = BILT) mg/dL 0.0-1.0 SGOT/AST (test code = AST) IUnit/L 15-37 SGPT/ALT (test code = ALT) IUnit/L 30-65 ALKALINE PHOSPHATASE TOTAL (test IUnit/L 20-125 code = ALKP) [id number] 18:28:00 Test Item Value Reference Range Interpretation Comments LIPASE (test code = LIP) U/L 13-57 HCG SERUM [id number] 18:28:00 Test Item Value Reference Range Interpretation Comments HCG SERUM QUAL (test code = SERUM NEGATIVE NEGATIVE HCGQL) [id number] 18:28:00 Test Item Value Reference Range Interpretation Comments ALCOHOL (test code = ALC) mg/dL <10 CBC W/AUTO [id number] 18:23:00 Test Item Value Reference Range Interpretation Comments WHITE BLOOD CELL (test code = 10.2 x10 3/uL 4.5-11.0 N WBC) RED BLOOD CELL (test code = 3.25 x10 6/uL 3.54-5.02 L RBC) HEMOGLOBIN (test code = HGB) 10.9 g/dL 11.0-15.0 L HEMATOCRIT (test code = HCT) 34.6 % 33.0-45.0 N MEAN CELL VOLUME (test code = 106.5 fL 81.0-99.0 H MCV) MEAN CELL HGB (test code = MCH) 33.5 pg 27.0-33.0 H MEAN CELL HGB CONCETRATION 31.5 g/dL 33.0-37.0 L (test code = MCHC) RED CELL DISTRIBUTION WIDTH CV 16.2 % 11.5-14.5 H (test code = RDW) RED CELL DISTRIBUTION WIDTH SD 64.6 fL 37.0-54.0 H (test code = RDW-SD) PLATELET COUNT (test code = 639 x10 3/uL 150-400 H PLT) MEAN PLATELET VOLUME (test code 9.2 fL 7.0-9.0 H = MPV) NEUTROPHIL % (test code = NT%) 74.1 % 56.0-77.0 N IMMATURE GRANULOCYTE % (test 1.2 % 0.0-2.0 N code = IG%) LYMPHOCYTE % (test code = LY%) 19.8 % 14.0-32.0 N MONOCYTE % (test code = MO%) 3.1 % 4.8-9.0 L EOSINOPHIL % (test code = EO%) 0.4 % 0.3-3.7 N BASOPHIL % (test code = BA%) 1.4 % 0.0-2.0 N NUCLEATED RBC % (test code = 0.0 % 0-0 N NRBC%) NEUTROPHIL # (test code = NT#) 7.54 x10 3/uL 2.0-7.6 N IMMATURE GRANULOCYTE # (test 0.12 x10 3/uL 0.00-0.03 H code = IG#) LYMPHOCYTE # (test code = LY#) 2.01 x10 3/uL 1.0-3.8 N MONOCYTE # (test code = MO#) 0.31 x10 3/uL 0.1-0.8 N EOSINOPHIL # (test code = EO#) 0.04 x10 3/uL 0.0-0.2 N BASOPHIL # (test code = BA#) 0.14 x10 3/uL 0.0-0.2 N NUCLEATED RBC # (test code = 0.00 x10 3/uL 0.0-0.1 N NRBC#) MANUAL DIFF REQUIRED (test code NO = MDIFF) RBC [id number] 18:23:00 Test Item Value Reference Range Interpretation Comments ANISOCYTOSIS (test code = ANISO) CBC W/AUTO [id number] 18:23:00 Test Item Value Reference Range Interpretation Comments WHITE BLOOD CELL (test code = 10.2 x10 3/uL 4.5-11.0 N WBC) RED BLOOD CELL (test code = 3.25 x10 6/uL 3.54-5.02 L RBC) HEMOGLOBIN (test code = HGB) 10.9 g/dL 11.0-15.0 L HEMATOCRIT (test code = HCT) 34.6 % 33.0-45.0 N MEAN CELL VOLUME (test code = 106.5 fL 81.0-99.0 H MCV) MEAN CELL HGB (test code = MCH) 33.5 pg 27.0-33.0 H MEAN CELL HGB CONCETRATION 31.5 g/dL 33.0-37.0 L (test code = MCHC) RED CELL DISTRIBUTION WIDTH CV 16.2 % 11.5-14.5 H (test code = RDW) RED CELL DISTRIBUTION WIDTH SD 64.6 fL 37.0-54.0 H (test code = RDW-SD) PLATELET COUNT (test code = 639 x10 3/uL 150-400 H PLT) MEAN PLATELET VOLUME (test code 9.2 fL 7.0-9.0 H = MPV) NEUTROPHIL % (test code = NT%) 74.1 % 56.0-77.0 N IMMATURE GRANULOCYTE % (test 1.2 % 0.0-2.0 N code = IG%) LYMPHOCYTE % (test code = LY%) 19.8 % 14.0-32.0 N MONOCYTE % (test code = MO%) 3.1 % 4.8-9.0 L EOSINOPHIL % (test code = EO%) 0.4 % 0.3-3.7 N BASOPHIL % (test code = BA%) 1.4 % 0.0-2.0 N NUCLEATED RBC % (test code = 0.0 % 0-0 N NRBC%) NEUTROPHIL # (test code = NT#) 7.54 x10 3/uL 2.0-7.6 N IMMATURE GRANULOCYTE # (test 0.12 x10 3/uL 0.00-0.03 H code = IG#) LYMPHOCYTE # (test code = LY#) 2.01 x10 3/uL 1.0-3.8 N MONOCYTE # (test code = MO#) 0.31 x10 3/uL 0.1-0.8 N EOSINOPHIL # (test code = EO#) 0.04 x10 3/uL 0.0-0.2 N BASOPHIL # (test code = BA#) 0.14 x10 3/uL 0.0-0.2 N NUCLEATED RBC # (test code = 0.00 x10 3/uL 0.0-0.1 N NRBC#) MANUAL DIFF REQUIRED (test code NO = MDIFF) RBC [id number] 18:23:00 Test Item Value Reference Range Interpretation Comments ANISOCYTOSIS (test code = ANISO) CBC W/AUTO [id number] 18:21:00 Test Item Value Reference Range Interpretation Comments WHITE BLOOD CELL (test code = WBC) x10 3/uL 4.5-11.0 RED BLOOD CELL (test code = RBC) x10 6/uL 3.54-5.02 HEMOGLOBIN (test code = HGB) g/dL 11.0-15.0 HEMATOCRIT (test code = HCT) 34.6 % 33.0-45.0 N MEAN CELL VOLUME (test code = MCV) fL 81.0-99.0 MEAN CELL HGB (test code = MCH) pg 27.0-33.0 MEAN CELL HGB CONCETRATION (test g/dL 33.0-37.0 code = MCHC) RED CELL DISTRIBUTION WIDTH CV % 11.5-14.5 (test code = RDW) PLATELET COUNT (test code = PLT) x10 3/uL 150-400 NEUTROPHIL % (test code = NT%) % 56.0-77.0 LYMPHOCYTE % (test code = LY%) % 14.0-32.0 NEUTROPHIL # (test code = NT#) x10 3/uL 2.0-7.6 LYMPHOCYTE # (test code = LY#) x10 3/uL 1.0-3.8 MANUAL DIFF REQUIRED (test code = MDIFF) [id number] 08:09:00 Test Item Value Reference Range Interpretation Comments GLUBED (test code = GLUBED) 116 mg/dL 70-110 H ACUTE HEPATITIS [id number] 08:12:00 Test Item Value Reference Range Interpretation Comments AB HEPATITIS A IGM NON REACTIVE NON REACT. Testing d one at (test code = INDEX CLEAR BOX TAISHA CLAUDETTE HAVMIGNONB) [facility] [address] [place] [id number] AB HEPATITIS B >1000.0 mIU/mL Immunity>9.9 Status of SURFACE (test code Immunity = HBSAB) Anti-H Bs Level --- I ncon sistent with Immunity 0.0 - 9.9Consistent w ith Immunity >9.9Performed A t: HD [facility] [address] [place], [place] [id number] Kyle L MD Ph:[phone] ST PERFORMED AT [facility] [[email or web address]] [address] [place], [place] [address] AG HEPATITIS B NON REACTIVE NonReactive Testing done at SURFACE (test code INDEX CLEAR [place] [facility] = HBSAG) [facility] [address] [place] [address] AB HEPATITIS B NON REACTIVE NON REACT. Testing done at CORE IGM (test INDEX CLEAR BOX RE GIONAL code = HBCMAB) [facility] [address] [place] [address] AB HEPATITIS C NON REACTIVE NON REACT. Testing done at (test code = INDEX CLEAR BOX TAISHA ONAL HCVAB) [facility] [address] [place] [address] [id number] BASIC METABOLIC [id number] 09:33:00 Test Item Value Reference Range Interpretation Comments SODIUM (test code = NA) 136 mmol/l 134.0-147.0 N POTASSIUM (test code = K) 3.1 mmol/L 3.6-5.2 L CHLORIDE (test code = CL) 97 mmol/l 98.0-107.0 L CARBON DIOXIDE (test code = CO2) 28.2 mmol/l 21.0-33.0 N ANION GAP (test code = GAP) 13.9 0-20 N GLUCOSE (test code = GLU) 93 mg/dl 70.0-110.0 N BLOOD UREA NITROGEN (test code = 4 mg/dl 7.0-18.0 L BUN) CREATININE (test code = CREAT) 0.40 mg/dL 0.60-1.30 L GFR NON BLACK (test code = 198 mL/min 105-110 H GFRNONBLACK) GFR BLACK (test code = GFRBLACK) 240 mL/min 127-133 H CALCIUM (test code = CA) 7.8 mg/dl 8.0-10.5 L [id number] 09:33:00 Test Item Value Reference Range Interpretation Comments MAGNESIUM (test code = MAG) 1.5 mg/dl 1.8-2.4 L HIV 12 AB [id number] 06:37:00 Test Item Value Reference Range Interpretation Comments AB HIV 1 2 (test code = NON REACTIVE NONREACTIVE [id number]) AG HIV1 P24 (test code = NEGATIVE NEGATIVE [id number]) Specimen comments: Order lab that is done in houseACUTE HEPATITIS PANEL 2020-03-20 04:31:00 Test Item Value Reference Range Interpretation Comments AB HEPATITIS A IGM NON REACTIVE NON REACT. Testing d one at (test code = INDEX CLEAR BOX TAISHA ONAL HAVMAB) [facility] [address] [place] [address]. [place] [address] AB HEPATITIS B mIU/mL Immune >9.9 SURFACE (test code = HBSAB) AG HEPATITIS B NON REACTIVE NonReactive Testing done at SURFACE (test code INDEX CLEAR [place] [facility] = HBSAG) [facility] [address] [place] [address]. [place] [address] AB HEPATITIS B NON REACTIVE NON REACT. Testing done at CORE IGM (test INDEX CLEAR BOX RE GIONAL code = HBCMAB) [facility] [address] [place] [address]. [place] [address] AB HEPATITIS C NON REACTIVE NON REACT. Testing done at (test code = INDEX CLEAR BOX TAISHA ONAL HCVAB) [facility] [address] [place] [address]. [place] [address] AB HEPATITIS A [id number] 03:00:00 Test Item Value Reference Range Interpretation Comments AB HEPATITIS A IGM (test NON REACTIVE INDEX NON REACT. code = HAVMAB) AG HEPATITIS B [id number] 03:00:00 Test Item Value Reference Range Interpretation Comments AG HEPATITIS B SURFACE NON REACTIVE INDEX NonReactive (test code = HBSAG) AB HEPATITIS B CORE [id number] 03:00:00 Test Item Value Reference Range Interpretation Comments AB HEPATITIS B CORE IGM NON REACTIVE INDEX NON REACT. (test code = HBCMAB) AB HEPATITIS [id number] 03:00:00 Test Item Value Reference Range Interpretation Comments AB HEPATITIS C (test code NON REACTIVE INDEX NON REACT. = HCVAB) [id number] 01:42:00 Test Item Value Reference Range Interpretation Comments GLUBED (test code = GLUBED) 120 mg/dL 70-110 H - CT ABDOMEN W/O [id number] 17:07:00 FAX: Viktoria Rodas [employer] [phone] [place]: St: [facility] FAX: Dorcas Barney [phone] Name: NNAMDI BARTH [facility] : 1990 Age/S: 29/F [address] [facility] Unit: [id number] Loc: E334 [place], [place] Phys: Viktoria Rodas [employer] [id number] Acct: [id number] Dis Date: Status: ADM IN PHONE #: [phone] Exam Date: 03/19/2020 1642 FAX #: [phone] Reason: abd pain EXAMS: CPT CODE: [id number] CT ABDOMEN W/O CONTRAST 85873 Contrast - No IV contrast was given. No oral contrast was given Noncontrast phase - abdomen and pelvis including all of kidneys Reconstructions - coronal and sagittal planes Automated exposure reduction (Auto mA/Smart mA) was utilized in compliance with ACR [employer] with DLP of2-1.38 mGy-cm. COMPARISON: 06/22/2019 FINDINGS: Statements: Lack ofintravenous contrast compromises evaluation of abdominopelvic organs and vasculature. Lack of oral contrast compromises evaluation of bowel. Thoracic: Included images of the lower chest demonstrate no abnormalities. Hepatobiliary: Fatty infiltration of the liver. No evidence of a focal lesion. Contrast is present in the gallbladder. No biliary dilation. Pancreas: The pancreas itself is unremarkable. Minimal retroperitoneal edema is noted. No focal fluid collection is seen. Spleen: Normal. Adrenals: Normal. Genitourinary: The kidneys are normal. There is no evidence ofhydronephrosis of either kidney. There is no evidence of renal calculus. Evaluation of the bladder is limited, but no obvious bladder abnormality is present. Gastrointestinal: No bowel obstruction or perienteric inflammation. The appendix is normal. Vascular: The aorta is grossly normal in appearance. Lymphatics: No enlarged lymph nodes by CT size criteria. Bones/Soft Tissues: No acute osseous findings. No ventral hernias. Peritoneum/Other: No extraluminal air. No extraluminal fluid. PAGE 1 Signed Report (CONTINUED) FAX: Viktoria Rodas [phone] [place]: St: [facility] FAX: Dorcas Barney [phone] Name: NNAMDI BARTH [facility] : 1990 Age/S: 29/F [address] [facility] Unit: [id number] Loc: [address] Phys: Viktoria Rodas-Fausto [id number] Acct: [id number] Dis Date: Status: ADM IN PHONE #: [phone] Exam Date: 03/19/2020 1642 FAX #: [phone] Reason: abd pain EXAMS: CPT CODE: [id number] CT ABDOMEN W/O CONTRAST 40710 <Continued> IMPRESSION: 1. Fatty infiltrate of the liver. 2. The previous identified cystic lesion in thetail of pancreas on prior CT scan of 06/22/2019, is no longer visualized. The tail the pancreas is now normal in appearance. Minimal edema is present in the retroperitoneum about the pancreas. Rule out minimal or early pancreatitis. at 1707 Reported and signed by: Armando Knott M.D. CC: Viktoria Pryor MD Technologist: ERICA CLAY Trnscrd Dt/Tm: 03/19/2020 (1707) [email or web address] Orig Print D/T: S: 03/19/2020 (8260 PAGE 2 Signed ReportCOMPREHENSIVE METABOLIC [id number] 16:27:00 Test Item Value Reference Range Interpretation Comments SODIUM (test code = NA) 133 mmol/l 134.0-147.0 L POTASSIUM (test code = K) 3.5 mmol/L 3.6-5.2 L CHLORIDE (test code = CL) 97 mmol/l 98.0-107.0 L CARBON DIOXIDE (test code = CO2) 24.4 mmol/l 21.0-33.0 N ANION GAP (test code = GAP) 15.1 0-20 N GLUCOSE (test code = GLU) 82 mg/dl 70.0-110.0 N BLOOD UREA NITROGEN (test code = 3 mg/dl 7.0-18.0 L BUN) CREATININE (test code = CREAT) 0.43 mg/dL 0.60-1.30 L GFR NON BLACK (test code = 183 mL/min 105-110 H GFRNONBLACK) GFR BLACK (test code = GFRBLACK) 221 mL/min 127-133 H TOTAL PROTEIN (test code = PROT) 6.4 GM/DL 6.0-8.1 N ALBUMIN (test code = ALB) 3.0 gm/dL 3.2-4.7 L CALCIUM (test code = CA) 7.6 mg/dl 8.0-10.5 L BILIRUBIN TOTAL (test code = 0.8 mg/dl 0.0-1.0 N BILT) SGOT/AST (test code = AST) 87 Units/L 15.0-37.0 H SGPT/ALT (test code = ALT) 36 Units/L 12.0-78.0 N ALKALINE PHOSPHATASE TOTAL (test 103 Units/L 50.0-136.0 N code = ALKP) [id number] 16:27:00 Test Item Value Reference Range Interpretation Comments LIPASE (test code = LIP) 64 Units/L 65.0-230.0 L [id number] 16:26:00 Test Item Value Reference Range Interpretation Comments GLUBED (test code = GLUBED) 112 mg/dL 70-110 H [id number] 16:26:00 Test Item Value Reference Range Interpretation Comments GLUBED (test code = GLUBED) 107 mg/dL 70-110 N [id number] 16:26:00 Test Item Value Reference Range Interpretation Comments GLUBED (test code = GLUBED) 123 mg/dL 70-110 H [id number] 16:26:00 Test Item Value Reference Range Interpretation Comments GLUBED (test code = GLUBED) 56 mg/dL 70-110 L CBC W/AUTO [id number] 16:08:00 Test Item Value Reference Range Interpretation Comments WHITE BLOOD CELL (test code = 5.6 K/mm3 4.5-11.0 N WBC) RED BLOOD CELL (test code = 3.96 M/mm3 3.80-5.20 N RBC) HEMOGLOBIN (test code = HGB) 13.6 gm/dL 12.0-16.0 N HEMATOCRIT (test code = HCT) 41.1 % 36.0-48.0 N MEAN CELL VOLUME (test code = 103.8 UM3 82.0-99.0 H MCV) MEAN CELL HGB (test code = MCH) 34.3 UUG 25.5-32.5 H MEAN CELL HGB CONCETRATION 33.1 gm/dL 29.0-35.5 N (test code = MCHC) RED CELL DISTRIBUTION WIDTH 16.8 % 11.5-15.0 H (test code = RDW) RED CELL DISTRIBUTION WIDTH SD 65.3 fL 34.8-50.2 H (test code = RDW-SD) PLATELET COUNT (test code = 154 K/mm3 150-400 PLT) MEAN PLATELET VOLUME (test code 9.7 fl 7.4-10.4 N = MPV) NEUTROPHIL % (test code = NT%) 52.0 % 49.0-76.0 N IMMATURE GRANULOCYTE % (test 0.4 % 0.0-0.4 N code = IG%) LYMPHOCYTE % (test code = LY%) 35.6 % 23.0-38.0 N MONOCYTE % (test code = MO%) 10.8 % 1.0-10.0 H EOSINOPHIL % (test code = EO%) 0.7 % 1.0-5.0 L BASOPHIL % (test code = BA%) 0.5 % 0.0-1.0 N NEUTROPHIL # (test code = NT#) 2.9 K/mm3 2.4-6.3 N IMMATURE GRANULOCYTE # (test 0.02 x10 3/uL 0.00-0.07 N code = IG#) LYMPHOCYTE # (test code = LY#) 2.0 K/mm3 1.2-4.0 N MONOCYTE # (test code = MO#) 0.6 K/mm3 0.0-0.6 N EOSINOPHIL # (test code = EO#) 0.0 K/MM3 0.0-0.7 N BASOPHIL # (test code = BA#) 0.0 K/mm3 0.0-0.2 N - XR ABDOMEN 1 [id number] 14:07:00 FAX: Viktoria Rodas [employer] [phone] [place]: St: [facility] FAX: Dorcas Barney [phone] Name: NNAMDI BARTH [facility] : 1990 Age/S: 29/F [address] [facility] Unit #: [id number] Loc: [address] Phys: Viktoria Rodas [employer]PER[employer] [id number] Acct: [id number] Dis Date: Status: ADM IN PHONE #: [phone] Exam Date: 03/19/2020 1355 FAX #: [phone] Reason: constipation EXAMS: CPT CODE: [id number] XR ABDOMEN 1 V 89161 Exam:Abdomen KUB radiograph one view Location: H9 Clinical Indication:29-year-old with constipation. Patient admitted with alcohol intoxication and acidosis. Comparison: June 24, 2019 Findings:An AP view of the abdomen and pelvis was performed. There is oroj-lp-xpcaxbui stool within the ascending and descending colon. Sigmoid colon isrelatively decompressed. No evidence of bowel obstruction. A few small phleboliths are present in the lower pelvis. No acute osseous abnormality. Impression: Nonobstructed bowel gas pattern. at 1407 Reported an d signed by: Luis Grimes M.D. CC: Viktoria Rodas; Radha Pryor MD Technologist: MCKENNA ALVAREZ Trnscrd Date/Time/By: 03/19/2020 (6047): By: [email or web address] PAGE 1 Signed Report FAX: Viktoria Rodas [phone] [place]: St: ADM FAX: Dorcas Barney [phone] Name: NNAMDI BARTH [facility] : 1990 Age/S: 29/F [address] [facility] Unit #: [id number] Loc: [address] Phys: iVktoria Rodas [id number] Acct: [id number] Dis Date: Status: ADM IN PHONE #: [phone] Exam Date: 03/19/2020 1355 FAX #: [phone] Reason: constipation EXAMS: CPTCODE: [id number] XR ABDOMEN 1 V 66330 <Continued> Orig Print D/T: S: 03/19/2020 (3295) PAGE 2 Signed Report [id number] 08:18:00 Test Item Value Reference Range Interpretation Comments GLUBED (test code = GLUBED) 58 mg/dL 70-110 L CBC W/MANUAL [id number] 21:51:00 Test Item Value Reference Range Interpretation Comments WHITE BLOOD CELL (test code = 16.9 K/mm3 4.5-11.0 H WBC) RED BLOOD CELL (test code = 4.25 M/mm3 3.80-5.20 N RBC) HEMOGLOBIN (test code = HGB) 14.8 gm/dL 12.0-16.0 N HEMATOCRIT (test code = HCT) 47.0 % 36.0-48.0 N MEAN CELL VOLUME (test code = 110.6 UM3 82.0-99.0 H MCV) MEAN CELL HGB (test code = MCH) 34.8 UUG 25.5-32.5 H MEAN CELL HGB CONCETRATION 31.5 gm/dL 29.0-35.5 N (test code = MCHC) RED CELL DISTRIBUTION WIDTH 18.0 % 11.5-15.0 H (test code = RDW) RED CELL DISTRIBUTION WIDTH SD 74.4 fL 34.8-50.2 H (test code = RDW-SD) PLATELET COUNT (test code = 227 K/mm3 150-400 N PLT) MEAN PLATELET VOLUME (test code 9.8 fl 7.4-10.4 N = MPV) NEUTROPHIL % (test code = NT%) 88.1 % 49.0-76.0 H IMMATURE GRANULOCYTE % (test 0.9 % 0.0-0.4 H code = IG%) LYMPHOCYTE % (test code = LY%) 4.0 % 23.0-38.0 L MONOCYTE % (test code = MO%) 6.2 % 1.0-10.0 N EOSINOPHIL % (test code = EO%) 0.4 % 1.0-5.0 L BASOPHIL % (test code = BA%) 0.4 % 0.0-1.0 N NEUTROPHIL # (test code = NT#) 14.9 K/mm3 2.4-6.3 H IMMATURE GRANULOCYTE # (test 0.16 x10 3/uL 0.00-0.07 H code = IG#) LYMPHOCYTE # (test code = LY#) 0.7 K/mm3 1.2-4.0 L MONOCYTE # (test code = MO#) 1.1 K/mm3 0.0-0.6 H EOSINOPHIL # (test code = EO#) 0.1 K/MM3 0.0-0.7 N BASOPHIL # (test code = BA#) 0.1 K/mm3 0.0-0.2 N TOTAL CELLS COUNTED (test code 100 #CELLS = TCC) SEGMENTED NEUTROPHILS (test 54 % 50.0-70.0 N code = SEG) BAND NEUTROPHIL (test code = 38 % 1.0-4.0 H BAND) LYMPHOCYTE (test code = LYMPH) 7 % 20-40 L ATYPICAL LYMPH (test code = 1 1.0-4.0 N ALYMPH) NUCLEATED RED BLOOD CELL (test 1 % code = NRBC) HYPOCHROMIA (test code = HYPO) OCCASIONAL MACROCYTOSIS (test code = MACR) 3+ OVALOCYTES (test code = OVAL) OCCASIONAL PLATELET ESTIMATE (test code = ADQ PLTEST) PLATELET MORPHOLOGY (test code NORMAL = PLTMORPH) CBC W/MANUAL [id number] 21:50:00 Test Item Value Reference Range Interpretation Comments WHITE BLOOD CELL (test code = 16.9 K/mm3 4.5-11.0 H WBC) RED BLOOD CELL (test code = 4.25 M/mm3 3.80-5.20 N RBC) HEMOGLOBIN (test code = HGB) 14.8 gm/dL 12.0-16.0 N HEMATOCRIT (test code = HCT) 47.0 % 36.0-48.0 N MEAN CELL VOLUME (test code = 110.6 UM3 82.0-99.0 H MCV) MEAN CELL HGB (test code = MCH) 34.8 UUG 25.5-32.5 H MEAN CELL HGB CONCETRATION 31.5 gm/dL 29.0-35.5 N (test code = MCHC) RED CELL DISTRIBUTION WIDTH 18.0 % 11.5-15.0 H (test code = RDW) RED CELL DISTRIBUTION WIDTH SD 74.4 fL 34.8-50.2 H (test code = RDW-SD) PLATELET COUNT (test code = 227 K/mm3 150-400 N PLT) MEAN PLATELET VOLUME (test code 9.8 fl 7.4-10.4 N = MPV) NEUTROPHIL % (test code = NT%) 88.1 % 49.0-76.0 H IMMATURE GRANULOCYTE % (test 0.9 % 0.0-0.4 H code = IG%) LYMPHOCYTE % (test code = LY%) 4.0 % 23.0-38.0 L MONOCYTE % (test code = MO%) 6.2 % 1.0-10.0 N EOSINOPHIL % (test code = EO%) 0.4 % 1.0-5.0 L BASOPHIL % (test code = BA%) 0.4 % 0.0-1.0 N NEUTROPHIL # (test code = NT#) 14.9 K/mm3 2.4-6.3 H IMMATURE GRANULOCYTE # (test 0.16 x10 3/uL 0.00-0.07 H code = IG#) LYMPHOCYTE # (test code = LY#) 0.7 K/mm3 1.2-4.0 L MONOCYTE # (test code = MO#) 1.1 K/mm3 0.0-0.6 H EOSINOPHIL # (test code = EO#) 0.1 K/MM3 0.0-0.7 N BASOPHIL # (test code = BA#) 0.1 K/mm3 0.0-0.2 N SEGMENTED NEUTROPHILS (test % 50.0-70.0 code = SEG) LYMPHOCYTE (test code = LYMPH) % 20-40 CBC W/MANUAL [id number] 21:50:00 Test Item Value Reference Range Interpretation Comments WHITE BLOOD CELL (test code = 16.9 K/mm3 4.5-11.0 H WBC) RED BLOOD CELL (test code = 4.25 M/mm3 3.80-5.20 N RBC) HEMOGLOBIN (test code = HGB) 14.8 gm/dL 12.0-16.0 N HEMATOCRIT (test code = HCT) 47.0 % 36.0-48.0 N MEAN CELL VOLUME (test code = 110.6 UM3 82.0-99.0 H MCV) MEAN CELL HGB (test code = MCH) 34.8 UUG 25.5-32.5 H MEAN CELL HGB CONCETRATION 31.5 gm/dL 29.0-35.5 N (test code = MCHC) RED CELL DISTRIBUTION WIDTH 18.0 % 11.5-15.0 H (test code = RDW) RED CELL DISTRIBUTION WIDTH SD 74.4 fL 34.8-50.2 H (test code = RDW-SD) PLATELET COUNT (test code = 227 K/mm3 150-400 N PLT) MEAN PLATELET VOLUME (test code 9.8 fl 7.4-10.4 N = MPV) NEUTROPHIL % (test code = NT%) 88.1 % 49.0-76.0 H IMMATURE GRANULOCYTE % (test 0.9 % 0.0-0.4 H code = IG%) LYMPHOCYTE % (test code = LY%) 4.0 % 23.0-38.0 L MONOCYTE % (test code = MO%) 6.2 % 1.0-10.0 N EOSINOPHIL % (test code = EO%) 0.4 % 1.0-5.0 L BASOPHIL % (test code = BA%) 0.4 % 0.0-1.0 N NEUTROPHIL # (test code = NT#) 14.9 K/mm3 2.4-6.3 H IMMATURE GRANULOCYTE # (test 0.16 x10 3/uL 0.00-0.07 H code = IG#) LYMPHOCYTE # (test code = LY#) 0.7 K/mm3 1.2-4.0 L MONOCYTE # (test code = MO#) 1.1 K/mm3 0.0-0.6 H EOSINOPHIL # (test code = EO#) 0.1 K/MM3 0.0-0.7 N BASOPHIL # (test code = BA#) 0.1 K/mm3 0.0-0.2 N SEGMENTED NEUTROPHILS (test % 50.0-70.0 code = SEG) LYMPHOCYTE (test code = LYMPH) % 20-40 URINALYSIS [id number] 17:59:00 Test Item Value Reference Range Interpretation Comments UA COLOR (test code = YELLOW COLU) UA APPEARANCE (test code HAZY = APPU) UA GLUCOSE DIPSTICK (test NORMAL mg/dl NORMAL code = DGLUU) UA BILIRUBIN DIPSTICK NEGATIVE mg/dL NEGATIVE (test code = BILU) UA KETONE DIPSTICK (test 50 mg/dl mg/dl NEGATIVE A code = KETU) UA SPECIFIC GRAVITY (test 1.025 1.000-1.030 code = SGU) UA BLOOD DIPSTICK (test 10 Killian/micL Killian/micL NEGATIVE A code = SUKHDEEP) UA PH DIPSTICK (test code 5.0 5.0-9.0 = CHLOE) UA PROTEIN DIPSTICK (test 100 mg/dl NEGATIVE A code = PROU) UA UROBILINIOGEN DIPSTICK NORMAL mg/dl NORMAL (test code = URO) UA NITRITE DIPSTICK (test NEGATIVE NEGATIVE code = MADONNA) UA LEUKOCYTE ESTERASE NEGATIVE Gisell/micL NEGATIVE DIPSTICK (test code = LEUU) UA WBC (test code = WBCU) 4-9 WBC/HPF NONE A UA RBC (test code = RBCU) 1-3 RBC/HPF 0-3 UA EPITHELIAL CELLS (test 15-25 EPI/HPF 0-3 A code = EPIU) UA BACTERIA (test code = FEW NONE BACU) UA RENAL CELLS (test code FEW = DONITA) UA FINE GRANULAR CAST 0-1 /LPF (test code = FINEU) UA MUCUS (test code = 3+ MUCU) UA AMORPHOUS SEDIMENT FEW NONE (test code = AMORU) UA OTHER (test code = CLUE CELLS OTHERU) UR HCG [id number] 17:59:00 Test Item Value Reference Range Interpretation Comments UR HCG QUAL (test code = HCGQLU) NEGATIVE NEGATIVE - XR CHEST 1 [id number] 17:48:00 FAX: Oswaldo Gordon DO [phone] [place]: St: [facility] FAX: Carlin Orozco [phone] Name: NNAMDI BARTH [facility] : 1990 Age/S: 29/F [address] [facility] Unit #: [id number] Loc: E.ERS2 [place], [place] Phys: Carlin Orozco [id number] Acct: [id number] Dis Date: Status: REG ER PHONE #: [phone] Exam Date: 03/18/2020 1735 FAX #: [phone] Reason: WEAKNESS EXAMS: CPT CODE: [id number] XR CHEST 1 V [id number] Single View Chest. Location: Clinical Indication: 29-year-old with weakness Comparison: July 08, 2019 Findings: Single frontal view of the chest was obtained. Heart size is normal for AP technique. Lungs are clear. No acute osseous abnormality. Impression: No acute cardiopulmonary process. at 1748 Reported and signed by: Luis Grimes M.D. CC: Oswaldo Gordon DO; Carlin PRATER Technologist: JOE HORNE Trnscrd Date/Time/By: 03/18/2020 (8715) : By: [email or web address] PAGE 1 Signed Report FAX: Oswaldo Gordon DO [phone] [place]: St: [facility] FAX: Carlin Orozco [phone] Name: NNAMDI BARTH [facility] : 1990 Age/S: 29/F [address] [facility]: [id number] Loc: [address] Phys: Carlin Orozco [id number] Acct: [id number] Dis Date: Status: REGER PHONE #: [phone] Exam Date: 03/18/2020 1735 FAX #: [phone] Reason: WEAKNESS EXAMS: CPT CODE: [id number] XR CHEST 1 V [id number] <Continued> Orig Print D/T: S: 03/18/2020 (1166) PAGE 2 Signed ReportURINALYSIS [id number] 17:46:00 Test Item Value Reference Range Interpretation Comments UA COLOR (test code = COLU) UA APPEARANCE (test code = APPU) UA GLUCOSE DIPSTICK (test code = mg/dl NORMAL DGLUU) UA BILIRUBIN DIPSTICK (test code = mg/dL NEGATIVE BILU) UA KETONE DIPSTICK (test code = mg/dl NEGATIVE KETU) UA SPECIFIC GRAVITY (test code = 1.000-1.030 SGU) UA BLOOD DIPSTICK (test code = SUKHDEEP) Killian/micL NEGATIVE UA PH DIPSTICK (test code = CHLOE) 5.0-9.0 UA PROTEIN DIPSTICK (test code = mg/dl NEGATIVE PROU) UA UROBILINIOGEN DIPSTICK (test mg/dl NORMAL code = URO) UA NITRITE DIPSTICK (test code = NEGATIVE MADONNA) UA LEUKOCYTE ESTERASE DIPSTICK Gisell/micL NEGATIVE (test code = LEUU) UA WBC (test code = WBCU) WBC/HPF NONE UA RBC (test code = RBCU) RBC/HPF 0-3 UA EPITHELIAL CELLS (test code = EPI/HPF 0-3 EPIU) UA BACTERIA (test code = BACU) NONE UR HCG [id number] 17:46:00 Test Item Value Reference Range Interpretation Comments UR HCG QUAL (test code = HCGQLU) NEGATIVE NEGATIVE URINALYSIS [id number] 17:46:00 Test Item Value Reference Range Interpretation Comments UA COLOR (test code = COLU) UA APPEARANCE (test code = APPU) UA GLUCOSE DIPSTICK (test NORMAL mg/dl NORMAL code = DGLUU) UA BILIRUBIN DIPSTICK NEGATIVE mg/dL NEGATIVE (test code = BILU) UA KETONE DIPSTICK (test 50 mg/dl mg/dl NEGATIVE A code = KETU) UA SPECIFIC GRAVITY (test 1.025 1.000-1.030 code = SGU) UA BLOOD DIPSTICK (test 10 Killian/micL Killian/micL NEGATIVE A code = SUKHDEEP) UA PH DIPSTICK (test code 5.0 5.0-9.0 = CHLOE) UA PROTEIN DIPSTICK (test 100 mg/dl NEGATIVE A code = PROU) UA UROBILINIOGEN DIPSTICK NORMAL mg/dl NORMAL (test code = URO) UA NITRITE DIPSTICK (test NEGATIVE NEGATIVE code = MADONNA) UA LEUKOCYTE ESTERASE NEGATIVE Gisell/micL NEGATIVE DIPSTICK (test code = LEUU) UA WBC (test code = WBCU) WBC/HPF NONE UA RBC (test code = RBCU) RBC/HPF 0-3 UA EPITHELIAL CELLS (test EPI/HPF 0-3 code = EPIU) UA BACTERIA (test code = NONE BACU) UR HCG [id number] 17:46:00 Test Item Value Reference Range Interpretation Comments UR HCG QUAL (test code = HCGQLU) NEGATIVE NEGATIVE ACETONE [id number] 17:42:00 Test Item Value Reference Range Interpretation Comments ACETONE BLOOD (test code = ACETB) NEGATIVE NEGATIVE DRUGS OF ABUSE SCREEN [id number] 17:41:00 Test Item Value Reference Range Interpretation Comments URN COCAINE (test code NEGATIVE NEGATIVE Cocai ne cut-off = COCAURN) concentration: 300 ng/mL URN CANNABINOIDS (test NEGATIVE NEGATIVE Canna binoids cut-off code = CANNABURN) concentrat ion: 50 ng/mL URN AMPHETAMINE (test NEGATIVE NEGATIVE Amphet amine cut-off code = AMPHETURN) concentrat ion: 1000 ng/mL URN BARBITURATE (test NEGATIVE NEGATIVE Barbit urate cut-off code = BARBITURN) concentrat ion: 200 ng/mL URN BENZODIAZEPINE NEGATIVE NEGATIVE Benzodiaz epine cut-off (test code = BENZOURN) rachna ntration: 200 ng/mL URN OPIATES (test code NEGATIVE NEGATIVE Opiat es cut-off = OPIATURN) concentration: 200 ng/mL URN PHENCYCLIDINE (PCP) NEGATIVE NEGATIVE Phen cyclidine(PCP) (test code = PHENCURN) cut-o ff concentration: 25 ng/ml URN METHADONE (test NEGATIVE NEGATIVE code = METHAURN) COMPREHENSIVE METABOLIC [id number] 17:31:00 Test Item Value Reference Range Interpretation Comments SODIUM (test code = NA) 139 mmol/l 134.0-147.0 N POTASSIUM (test code = 4.1 mmol/L 3.6-5.2 N SAMPL E 1+ K) HEMOLYSED, REDR AW IF DEEMED NECESSARY. CHLORIDE (test code = 97 mmol/l 98.0-107.0 L CL) CARBON DIOXIDE (test 7.5 mmol/l 21.0-33.0 LL code = CO2) ANION GAP (test code = 38.6 0-20 H GAP) GLUCOSE (test code = 139 mg/dl 70.0-110.0 H GLU) BLOOD UREA NITROGEN 13 mg/dl 7.0-18.0 N (test code = BUN) CREATININE (test code = 0.73 mg/dL 0.60-1.30 N CREAT) GFR NON BLACK (test 99 mL/min 105-110 L code = GFRNONBLACK) GFR BLACK (test code = 120 mL/min 127-133 L GFRBLACK) TOTAL PROTEIN (test 7.4 GM/DL 6.0-8.1 N code = PROT) ALBUMIN (test code = 3.4 gm/dL 3.2-4.7 N ALB) CALCIUM (test code = 7.9 mg/dl 8.0-10.5 L CA) BILIRUBIN TOTAL (test 0.6 mg/dl 0.0-1.0 N code = BILT) SGOT/AST (test code = 255 Units/L 15.0-37.0 H AST) SGPT/ALT (test code = 58 Units/L 12.0-78.0 N ALT) ALKALINE PHOSPHATASE 124 Units/L 50.0-136.0 N TOTAL (test code = ALKP) [id number] 17:31:00 Test Item Value Reference Range Interpretation Comments LIPASE (test code = LIP) 104 Units/L 65.0-230.0 N CARDIAC ENZYMES [id number] 17:31:00 Test Item Value Reference Range Interpretation Comments CREATINE KINASE (CK) 129 Units/L 26-192 N (test code = CK) TROPONIN-I (test code <0.02 NG/ML 0.00-0.06 N REFERE NCE RANGE = TROPI) TROPONIN I HEAL THY INDIVIDUALS: < 0.06 ng/mL R/O ISCHE ALEX: 0.07 - 0.60 ng/ mL CUT-OFF RANGE F OR AMI: 0.60 - 1. 5 ng/mL [id number] 17:31:00 Test Item Value Reference Range Interpretation Comments ALCOHOL (test code 0.40 gm/dL 0.00-0.00 HH ETHYL ALC OHOL VALUES - = ALC) INTERPRETATION: 0.050 GM/DL - NOT INT OXICATED 0.100 GM/DL - INTOXICATED 0.3 50-0.450 GM/DL - SEVEREL Y INTOXICATED 0.5 50 GM/DL- FATAL INTOXICAT ION COMPREHENSIVE METABOLIC [id number] 17:19:00 Test Item Value Reference Range Interpretation Comments SODIUM (test code = NA) 139 mmol/l 134.0-147.0 N POTASSIUM (test code = 4.1 mmol/L 3.6-5.2 N SAMPL E 1+ HEMOLYSED, K) REDRAW IF DEEME D NECESSARY. CHLORIDE (test code = 97 mmol/l 98.0-107.0 L CL) CARBON DIOXIDE (test 7.5 mmol/l 21.0-33.0 LL code = CO2) ANION GAP (test code = 38.6 0-20 H GAP) GLUCOSE (test code = mg/dl 70.0-110.0 GLU) BLOOD UREA NITROGEN mg/dl 7.0-18.0 (test code = BUN) CREATININE (test code = mg/dL 0.60-1.30 CREAT) GFR NON BLACK (test mL/min 105-110 code = GFRNONBLACK) GFR BLACK (test code = mL/min 127-133 GFRBLACK) TOTAL PROTEIN (test gm/dL 6.4-8.2 code = PROT) ALBUMIN (test code = gm/dl 3.2-4.7 ALB) CALCIUM (test code = mg/dl 8.0-10.5 CA) BILIRUBIN TOTAL (test mg/dl 0.0-1.0 code = BILT) SGOT/AST (test code = Units/L 15.0-37.0 AST) SGPT/ALT (test code = Units/L 12.0-78.0 ALT) ALKALINE PHOSPHATASE Units/L 50.0-136.0 TOTAL (test code = ALKP) [id number] 17:19:00 Test Item Value Reference Range Interpretation Comments LIPASE (test code = LIP) Units/L 65.0-230.0 CARDIAC ENZYMES [id number] 17:19:00 Test Item Value Reference Range Interpretation Comments CREATINE KINASE (CK) (test code = Units/L 26-192 CK) TROPONIN-I (test code = TROPI) NG/ML 0.00-0.06 [id number] 17:19:00 Test Item Value Reference Range Interpretation Comments ALCOHOL (test code = ALC) gm/dL 0.00-0.00 CBC W/AUTO [id number] 17:13:00 Test Item Value Reference Range Interpretation Comments WHITE BLOOD CELL (test code = 16.9 K/mm3 4.5-11.0 H WBC) RED BLOOD CELL (test code = 4.25 M/mm3 3.80-5.20 N RBC) HEMOGLOBIN (test code = HGB) 14.8 gm/dL 12.0-16.0 N HEMATOCRIT (test code = HCT) 47.0 % 36.0-48.0 N MEAN CELL VOLUME (test code = 110.6 UM3 82.0-99.0 H MCV) MEAN CELL HGB (test code = MCH) 34.8 UUG 25.5-32.5 H MEAN CELL HGB CONCETRATION 31.5 gm/dL 29.0-35.5 N (test code = MCHC) RED CELL DISTRIBUTION WIDTH 18.0 % 11.5-15.0 H (test code = RDW) RED CELL DISTRIBUTION WIDTH SD 74.4 fL 34.8-50.2 H (test code = RDW-SD) PLATELET COUNT (test code = 227 K/mm3 150-400 N PLT) MEAN PLATELET VOLUME (test code 9.8 fl 7.4-10.4 N = MPV) NEUTROPHIL % (test code = NT%) 88.1 % 49.0-76.0 H IMMATURE GRANULOCYTE % (test 0.9 % 0.0-0.4 H code = IG%) LYMPHOCYTE % (test code = LY%) 4.0 % 23.0-38.0 L MONOCYTE % (test code = MO%) 6.2 % 1.0-10.0 N EOSINOPHIL % (test code = EO%) 0.4 % 1.0-5.0 L BASOPHIL % (test code = BA%) 0.4 % 0.0-1.0 N NEUTROPHIL # (test code = NT#) 14.9 K/mm3 2.4-6.3 H IMMATURE GRANULOCYTE # (test 0.16 x10 3/uL 0.00-0.07 H code = IG#) LYMPHOCYTE # (test code = LY#) 0.7 K/mm3 1.2-4.0 L MONOCYTE # (test code = MO#) 1.1 K/mm3 0.0-0.6 H EOSINOPHIL # (test code = EO#) 0.1 K/MM3 0.0-0.7 N BASOPHIL # (test code = BA#) 0.1 K/mm3 0.0-0.2 N CHEMISTRY 8 [id number] 14:38:00 Test Item Value Reference Range Interpretation Comments ISTAT-SODIUM (test code = NAP) MMOL/L 134-147 ISTAT-POTASSIUM (test code = KP) MMOL/L 3.4-5.0 ISTAT-CHLORIDE (test code = CLP) MMOL/L 100-108 ISTAT CARBON DIOXIDE (test code = mmol/L 21-33 N ISTAT-CO2) ISTAT CALCIUM IONIZED (test code = MG/DL 1.12-1.32 ISTAT-LENA) ISTAT-GLUCOSE (test code = GLUP) MG/DL 70-110 N ISTAT-BUN (test code = BUNP) MG/DL 7-18 L BEDSIDE CREATININE (test code = MG/DL 0.6-1.3 L CREATBED) GLOMERULAR FILTRATION RATE POC 154 ML/MIN (test code = GFRBED) CHEMISTRY 8 [id number] 14:38:00 Test Item Value Reference Range Interpretation Comments ISTAT-SODIUM (test 140 MMOL/L 134-147 N code = NAP) ISTAT-POTASSIUM (test 3.5 MMOL/L 3.4-5.0 N code = KP) ISTAT-CHLORIDE (test 106 MMOL/L 100-108 N Perform ed by code = CLP) certified opera tor at [facility] ISTAT CARBON DIOXIDE 22.0 mmol/L 21-33 N (test code = ISTAT-CO2) ISTAT CALCIUM IONIZED 1.18 MG/DL 1.12-1.32 N (test code = ISTAT-LENA) ISTAT-GLUCOSE (test 90 MG/DL 70-110 N code = GLUP) ISTAT-BUN (test code = < 3 MG/DL 7-18 L BUNP) BEDSIDE CREATININE 0.5 MG/DL 0.6-1.3 L (test code = CREATBED) GLOMERULAR FILTRATION 154 ML/MIN RATE POC (test code = GFRBED) CHEMISTRY 8 [id number] 11:31:00 Test Item Value Reference Range Interpretation Comments ISTAT-SODIUM (test code = NAP) MMOL/L 134-147 ISTAT-POTASSIUM (test code = KP) MMOL/L 3.4-5.0 ISTAT-CHLORIDE (test code = CLP) MMOL/L 100-108 ISTAT CARBON DIOXIDE (test code = mmol/L 21-33 N ISTAT-CO2) ISTAT CALCIUM IONIZED (test code = MG/DL 1.12-1.32 ISTAT-LENA) ISTAT-GLUCOSE (test code = GLUP) MG/DL 70-110 N ISTAT-BUN (test code = BUNP) MG/DL 7-18 L BEDSIDE CREATININE (test code = MG/DL 0.6-1.3 L CREATBED) GLOMERULAR FILTRATION RATE POC 154 ML/MIN (test code = GFRBED) CHEMISTRY 8 [id number] 11:31:00 Test Item Value Reference Range Interpretation Comments ISTAT-SODIUM (test 140 MMOL/L 134-147 N code = NAP) ISTAT-POTASSIUM (test 3.5 MMOL/L 3.4-5.0 N code = KP) ISTAT-CHLORIDE (test 106 MMOL/L 100-108 N Perform ed by code = CLP) certified opera tor at [facility] ISTAT CARBON DIOXIDE 22.0 mmol/L 21-33 N (test code = ISTAT-CO2) ISTAT CALCIUM IONIZED 1.18 MG/DL 1.12-1.32 N (test code = ISTAT-LENA) ISTAT-GLUCOSE (test 90 MG/DL 70-110 N code = GLUP) ISTAT-BUN (test code = < 3 MG/DL 7-18 L BUNP) BEDSIDE CREATININE 0.5 MG/DL 0.6-1.3 L (test code = CREATBED) GLOMERULAR FILTRATION 154 ML/MIN RATE POC (test code = GFRBED) BASIC METABOLIC [id number] 23:22:00 Test Item Value Reference Range Interpretation Comments SODIUM (test code = NA) 143 mEq/L 134-147 N POTASSIUM (test code = 3.8 mEq/L 3.4-5.0 N K) CHLORIDE (test code = 113 mEq/L 100-108 H CL) CARBON DIOXIDE (test 22 mEq/L 21-33 N code = CO2) ANION GAP (test code = 12 0-20 N GAP) GLUCOSE (test code = 95 mg/dL 70-110 N GLU) BLOOD UREA NITROGEN 4 mg/dL 7-18 L (test code = BUN) GLOMERULAR FILTRATION 144.9 105-110 H Units of measure = RATE (test code = GFR) ml/mi n/1.73 m2 CREATININE (test code = 0.5 mg/dL 0.6-1.3 L CREAT) CALCIUM (test code = 8.7 mg/dL 8.0-10.5 N CA) HEPATIC FUNCTION [id number] 23:22:00 Test Item Value Reference Range Interpretation Comments TOTAL PROTEIN (test code = PROT) 7.0 g/dL 6.4-8.2 N ALBUMIN (test code = ALB) 3.00 g/dL 3.4-5.0 L BILIRUBIN TOTAL (test code = 0.2 MG/DL <1.5 N BILT) BILIRUBIN DIRECT (test code = < 0.10 MG/DL 0.0-0.30 N BILD) BILIRUBIN INDIRECT (test code = 0.10 MG/DL BILIND) SGOT/AST (test code = AST) 17 IUnit/L 15-37 N SGPT/ALT (test code = ALT) 16 IUnit/L 15-65 N ALKALINE PHOSPHATASE TOTAL (test 51 IUnit/L 20-125 N code = ALKP) [id number] 23:22:00 Test Item Value Reference Range Interpretation Comments LIPASE (test code = LIP) 115 IUnit/L 73-393 N BASIC METABOLIC [id number] 23:13:00 Test Item Value Reference Range Interpretation Comments SODIUM (test code = NA) 143 mEq/L 134-147 N POTASSIUM (test code = K) 3.8 mEq/L 3.4-5.0 N CHLORIDE (test code = CL) 113 mEq/L 100-108 H CARBON DIOXIDE (test code = CO2) 22 mEq/L 21-33 N ANION GAP (test code = GAP) 12 0-20 N GLUCOSE (test code = GLU) 95 mg/dL 70-110 N BLOOD UREA NITROGEN (test code = 4 mg/dL 7-18 L BUN) GLOMERULAR FILTRATION RATE (test 105-110 code = GFR) CREATININE (test code = CREAT) mg/dL 0.6-1.3 CALCIUM (test code = CA) 8.7 mg/dL 8.0-10.5 N HEPATIC FUNCTION [id number] 23:13:00 Test Item Value Reference Range Interpretation Comments TOTAL PROTEIN (test code = PROT) g/dL 6.4-8.2 ALBUMIN (test code = ALB) 3.00 g/dL 3.4-5.0 L BILIRUBIN TOTAL (test code = BILT) MG/DL <1.5 BILIRUBIN DIRECT (test code = BILD) MG/DL 0.0-0.30 SGOT/AST (test code = AST) IUnit/L 15-37 SGPT/ALT (test code = ALT) IUnit/L 15-65 ALKALINE PHOSPHATASE TOTAL (test IUnit/L 20-125 code = ALKP) [id number] 23:13:00 Test Item Value Reference Range Interpretation Comments LIPASE (test code = LIP) 115 IUnit/L 73-393 N CBC W/AUTO [id number] 22:55:00 Test Item Value Reference Range Interpretation Comments WHITE BLOOD CELL (test code = 10.40 x10 3/uL 4.5-11.0 N WBC) RED BLOOD CELL (test code = 3.37 x10 6/uL 3.54-5.02 L RBC) HEMOGLOBIN (test code = HGB) 11.7 g/dL 11.0-15.0 N HEMATOCRIT (test code = HCT) 36.2 % 33.0-45.0 N MEAN CELL VOLUME (test code = 107.4 fL 81.0-99.0 H MCV) MEAN CELL HGB (test code = 34.7 pg 27.0-33.0 H MCH) MEAN CELL HGB CONCETRATION 32.3 g/dL 33.0-37.0 L (test code = MCHC) RED CELL DISTRIBUTION WIDTH CV 12.5 % 11.5-14.5 N (test code = RDW) RED CELL DISTRIBUTION WIDTH SD 49.9 fL 37.0-54.0 N (test code = RDW-SD) PLATELET COUNT (test code = 307 x10 3/uL 150-400 N PLT) MEAN PLATELET VOLUME (test 11.3 fL 7.0-9.0 H code = MPV) NEUTROPHIL % (test code = NT%) 61.8 % 56.0-77.0 N IMMATURE GRANULOCYTE % (test 0.4 % 0.0-2.0 N code = IG%) LYMPHOCYTE % (test code = LY%) 25.5 % 14.0-32.0 N MONOCYTE % (test code = MO%) 8.8 % 4.8-9.0 N EOSINOPHIL % (test code = EO%) 3.0 % 0.3-3.7 N BASOPHIL % (test code = BA%) 0.5 % 0.0-2.0 N NUCLEATED RBC % (test code = 0.0 % 0-0 N NRBC%) NEUTROPHIL # (test code = NT#) 6.43 x10 3/uL 2.0-7.6 N IMMATURE GRANULOCYTE # (test 0.04 x10 3/uL 0.00-0.03 H code = IG#) LYMPHOCYTE # (test code = LY#) 2.65 x10 3/uL 1.0-3.8 N MONOCYTE # (test code = MO#) 0.92 x10 3/uL 0.1-0.8 H EOSINOPHIL # (test code = EO#) 0.31 x10 3/uL 0.0-0.2 H BASOPHIL # (test code = BA#) 0.05 x10 3/uL 0.0-0.2 N NUCLEATED RBC # (test code = 0.00 x10 3/uL 0.0-0.1 N NRBC#) MANUAL DIFF REQUIRED (test NO code = MDIFF) RBC [id number] 22:55:00 Test Item Value Reference Range Interpretation Comments ANISOCYTOSIS (test code = ANISO) 1+ MACROCYTOSIS (test code = MACR) 1+ UA RFLX MICR CULT IF [id number] 22:23:00 Test Item Value Reference Range Interpretation Comments UA COLOR (test code = COLU) YELLOW YEL/STRAW UA APPEARANCE (test code = SL CLOUDY CLEAR APPU) UA GLUCOSE DIPSTICK (test code NEGATIVE NEGATIVE = DGLUU) UA BILIRUBIN DIPSTICK (test NEGATIVE NEGATIVE code = BILU) UA KETONE DIPSTICK (test code NEGATIVE NEGATIVE = KETU) UA SPECIFIC GRAVITY (test code 1.011 1.005-1.030 N = SGU) UA BLOOD DIPSTICK (test code = NEGATIVE NEGATIVE SUKHDEEP) UA PH DIPSTICK (test code = 6.0 5.0-7.0 N CHLOE) UA PROTEIN DIPSTICK (test code NEGATIVE NEGATIVE = PROU) UA UROBILINIOGEN DIPSTICK 0.2 mg/dL 0.2-1.0 (test code = URO) UA NITRITE DIPSTICK (test code NEGATIVE NEGATIVE = MADONNA) UA LEUKOCYTE ESTERASE DIPSTICK NEGATIVE NEGATIVE (test code = LEUU) UA WBC (test code = WBCU) 0-3 WBC/HPF 0-3 UA RBC (test code = RBCU) 0-3 RBC/HPF 0-3 UA WBC NO REFLEX (test code = 0-3 WBC/HPF 0-3 WBCUCL) UA BACTERIA (test code = BACU) NONE SEEN /HPF NONE SEEN UA SQUAMOUS CELLS (test code = 0-5 /HPF NONE SEEN SQU) UA MUCUS (test code = MUCU) 1+ /LPF NONE SEEN Indication for culture: Suprapubic PainSpecimen Description: CLEAN CATCHUR HCG [id number] 22:16:00 Test Item Value Reference Range Interpretation Comments UR HCG QUAL (test code = HCGQLU) NEGATIVE NEGATIVE CBC W/AUTO [id number] 22:15:00 Test Item Value Reference Range Interpretation Comments WHITE BLOOD CELL (test code = 10.40 x10 3/uL 4.5-11.0 N WBC) RED BLOOD CELL (test code = 3.37 x10 6/uL 3.54-5.02 L RBC) HEMOGLOBIN (test code = HGB) 11.7 g/dL 11.0-15.0 N HEMATOCRIT (test code = HCT) 36.2 % 33.0-45.0 N MEAN CELL VOLUME (test code = 107.4 fL 81.0-99.0 H MCV) MEAN CELL HGB (test code = 34.7 pg 27.0-33.0 H MCH) MEAN CELL HGB CONCETRATION 32.3 g/dL 33.0-37.0 L (test code = MCHC) RED CELL DISTRIBUTION WIDTH CV 12.5 % 11.5-14.5 N (test code = RDW) RED CELL DISTRIBUTION WIDTH SD 49.9 fL 37.0-54.0 N (test code = RDW-SD) PLATELET COUNT (test code = 307 x10 3/uL 150-400 N PLT) MEAN PLATELET VOLUME (test 11.3 fL 7.0-9.0 H code = MPV) NEUTROPHIL % (test code = NT%) 61.8 % 56.0-77.0 N IMMATURE GRANULOCYTE % (test 0.4 % 0.0-2.0 N code = IG%) LYMPHOCYTE % (test code = LY%) 25.5 % 14.0-32.0 N MONOCYTE % (test code = MO%) 8.8 % 4.8-9.0 N EOSINOPHIL % (test code = EO%) 3.0 % 0.3-3.7 N BASOPHIL % (test code = BA%) 0.5 % 0.0-2.0 N NUCLEATED RBC % (test code = 0.0 % 0-0 N NRBC%) NEUTROPHIL # (test code = NT#) 6.43 x10 3/uL 2.0-7.6 N IMMATURE GRANULOCYTE # (test 0.04 x10 3/uL 0.00-0.03 H code = IG#) LYMPHOCYTE # (test code = LY#) 2.65 x10 3/uL 1.0-3.8 N MONOCYTE # (test code = MO#) 0.92 x10 3/uL 0.1-0.8 H EOSINOPHIL # (test code = EO#) 0.31 x10 3/uL 0.0-0.2 H BASOPHIL # (test code = BA#) 0.05 x10 3/uL 0.0-0.2 N NUCLEATED RBC # (test code = 0.00 x10 3/uL 0.0-0.1 N NRBC#) MANUAL DIFF REQUIRED (test NO code = MDIFF) RBC [id number] 22:15:00 Test Item Value Reference Range Interpretation Comments ANISOCYTOSIS (test code = ANISO) CBC W/AUTO [id number] 22:15:00 Test Item Value Reference Range Interpretation Comments WHITE BLOOD CELL (test code = 10.40 x10 3/uL 4.5-11.0 N WBC) RED BLOOD CELL (test code = 3.37 x10 6/uL 3.54-5.02 L RBC) HEMOGLOBIN (test code = HGB) 11.7 g/dL 11.0-15.0 N HEMATOCRIT (test code = HCT) 36.2 % 33.0-45.0 N MEAN CELL VOLUME (test code = 107.4 fL 81.0-99.0 H MCV) MEAN CELL HGB (test code = 34.7 pg 27.0-33.0 H MCH) MEAN CELL HGB CONCETRATION 32.3 g/dL 33.0-37.0 L (test code = MCHC) RED CELL DISTRIBUTION WIDTH CV 12.5 % 11.5-14.5 N (test code = RDW) RED CELL DISTRIBUTION WIDTH SD 49.9 fL 37.0-54.0 N (test code = RDW-SD) PLATELET COUNT (test code = 307 x10 3/uL 150-400 N PLT) MEAN PLATELET VOLUME (test 11.3 fL 7.0-9.0 H code = MPV) NEUTROPHIL % (test code = NT%) 61.8 % 56.0-77.0 N IMMATURE GRANULOCYTE % (test 0.4 % 0.0-2.0 N code = IG%) LYMPHOCYTE % (test code = LY%) 25.5 % 14.0-32.0 N MONOCYTE % (test code = MO%) 8.8 % 4.8-9.0 N EOSINOPHIL % (test code = EO%) 3.0 % 0.3-3.7 N BASOPHIL % (test code = BA%) 0.5 % 0.0-2.0 N NUCLEATED RBC % (test code = 0.0 % 0-0 N NRBC%) NEUTROPHIL # (test code = NT#) 6.43 x10 3/uL 2.0-7.6 N IMMATURE GRANULOCYTE # (test 0.04 x10 3/uL 0.00-0.03 H code = IG#) LYMPHOCYTE # (test code = LY#) 2.65 x10 3/uL 1.0-3.8 N MONOCYTE # (test code = MO#) 0.92 x10 3/uL 0.1-0.8 H EOSINOPHIL # (test code = EO#) 0.31 x10 3/uL 0.0-0.2 H BASOPHIL # (test code = BA#) 0.05 x10 3/uL 0.0-0.2 N NUCLEATED RBC # (test code = 0.00 x10 3/uL 0.0-0.1 N NRBC#) MANUAL DIFF REQUIRED (test NO code = MDIFF) RBC [id number] 22:15:00 Test Item Value Reference Range Interpretation Comments ANISOCYTOSIS (test code = ANISO) TROPONIN-I [id number] 21:42:00 Test Item Value Reference Range Interpretation Comments TROPONIN-I RAPID 0.00 ng/mL 0.00-0.08 N Performed b y certified (test code = 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 Rather, the pat ient sclinical prese ntation (history, physi brandy exam) and ECGshould b e used in conjunction wit h troponin in thediagnosti c evaluation of s uspected myocardial infa rction. Aserial samplin g protocol is recommended to facilitate the identification of temporal changes in trop onin levels characteristic of PA. HCG [id number] 21:42:00 Test Item Value Reference Range Interpretation Comments HCG POC (test code = < 5.0 <5.0 N Perform ed by certified HCGPOC) flame annealing machine operator at [facility]< 5 IU/L Negative5.0 -25 .0 IU/L Indeterminate>2 5.0 IU/L Positive Detect ion of low levels of hCG d oes not rule out .B ecause hCG values double a pproximately every 48 hours in anormal , donavon ents with low levels of hCG s tanesha zayasampled and retested after 48 hours. - XR CHEST 1 [id number] 21:21:00 FAX: Ana Oliver NP [place]: St: DEP Name: NNAMDI BARTH [facility] : 1990 Age/S: 29/F [address] [place] [address] Unit#: [id number] Loc: [place] [address] Phys: Ana Oliver NP Acct: [id number] Dis Date: Status: [facility] ER PHONE #: [phone] Exam Date: 07/08/20192113 FAX #: [phone] Reason: Abdominal Pain EXAMS: CPT CODE: [id number] XR CHEST 1 V 50775 SINGLE VIEW RADIOGRAPH CHEST INDICATION: Abdominal Pain. TECHNIQUE: A single view frontal radiograph of the chest was obtained. COMPARISONS: None. FINDINGS: There is no acute osseous fracture or dislocation. There is no subdiaphragmatic free gas. The cardiomediastinal size and contour are normal. There is no pneumothorax, pleural effusion or organized pneumonia. IMPRESSION: 1. No acute cardiopulmonary process. at 2121 Reported and signed by: Thierry Hu D.O. CC: Ana Oliver NP Technologist: RT Davey(R) Trnkyamadeo Date/Time/By: 07/08/2019 (2120) : By: [email or web address] Orig Print D/T: S: (2124) PAGE 1 Signed Report- XR CHEST 1 [id number] 21:21:00 FAX: Ana Oliver NP [place]: St: PRE Name: NNMADI BARTH [facility] : 1990 Age/S: 29/F [address] [place] [address] Unit#: [id number] Loc: [place] [address] Phys: Ana Oliver NP Acct: [id number] Dis Date: Status: PRE ER PHONE #: [phone] Exam Date: 07/08/20192113 FAX #: [phone] Reason: Abdominal Pain EXAMS: CPT CODE: [id number] XR CHEST 1 V 86037 SINGLE VIEW RADIOGRAPH CHEST INDICATION: Abdominal Pain. TECHNIQUE: A single view frontal radiograph of the chest was obtained. COMPARISONS: None. FINDINGS: There is no acute osseous fracture or dislocation. There is no subdiaphragmatic free gas. The cardiomediastinal size and contour are normal. There is no pneumothorax, pleural effusion or organized pneumonia. IMPRESSION: 1. No acute cardiopulmonary process. at 2120 Reported and signed by: Thierry uH D.O. CC: Ana Oliver NP Technologist: RT Davey(R) Trnkyrd Date/Time/By: 07/08/2019 (2120) : By: [email or web address] Orig Print D/T: S: (2124) PAGE 1 Signed ReportCOMPREHENSIVE METABOLIC [id number] 08:18:00 Test Item Value Reference Range Interpretation Comments SODIUM (test code = NA) 135 mEq/L 134-147 N POTASSIUM (test code = 3.5 mEq/L 3.4-5.0 N K) CHLORIDE (test code = 103 mEq/L 100-108 N CL) CARBON DIOXIDE (test 28 mEq/L 21-33 N code = CO2) ANION GAP (test code = 8 0-20 N GAP) GLUCOSE (test code = 78 mg/dL 70-110 N GLU) BLOOD UREA NITROGEN 6 mg/dL 7-18 L (test code = BUN) GLOMERULAR FILTRATION 145.9 110-120 H Units of measure = RATE (test code = GFR) ml/mi n/1.73 m2 CREATININE (test code = 0.5 mg/dL 0.6-1.3 L CREAT) TOTAL PROTEIN (test 7.0 g/dL 6.4-8.2 N code = PROT) ALBUMIN (test code = 2.70 g/dL 3.4-5.0 L ALB) CALCIUM (test code = 9.1 mg/dL 8.0-10.5 N CA) BILIRUBIN TOTAL (test 0.3 MG/DL <1.5 N code = BILT) SGOT/AST (test code = 21 IUnit/L 15-37 N AST) SGPT/ALT (test code = 16 IUnit/L 15-65 N ALT) ALKALINE PHOSPHATASE 75 IUnit/L 20-125 N TOTAL (test code = ALKP) [id number] 08:18:00 Test Item Value Reference Range Interpretation Comments AMYLASE (test code = OMKAR) 31 UNITS/L 25-115 N [id number] 08:18:00 Test Item Value Reference Range Interpretation Comments LIPASE (test code = LIP) 43 IUnit/L 73-393 L CBC W/AUTO [id number] 07:20:00 Test Item Value Reference Range Interpretation Comments WHITE BLOOD CELL (test code = 9.14 x10 3/uL 4.5-11.0 N WBC) RED BLOOD CELL (test code = 3.71 x10 6/uL 3.54-5.02 N RBC) HEMOGLOBIN (test code = HGB) 13.1 g/dL 11.0-15.0 N HEMATOCRIT (test code = HCT) 38.6 % 33.0-45.0 N MEAN CELL VOLUME (test code = 104.0 fL 81.0-99.0 H MCV) MEAN CELL HGB (test code = MCH) 35.3 pg 27.0-33.0 H MEAN CELL HGB CONCETRATION 33.9 g/dL 33.0-37.0 N (test code = MCHC) RED CELL DISTRIBUTION WIDTH CV 12.3 % 11.5-14.5 N (test code = RDW) RED CELL DISTRIBUTION WIDTH SD 47.5 fL 37.0-54.0 N (test code = RDW-SD) PLATELET COUNT (test code = 415 x10 3/uL 150-400 H PLT) MEAN PLATELET VOLUME (test code 10.6 fL 7.0-9.0 H = MPV) NEUTROPHIL % (test code = NT%) 51.8 % 56.0-77.0 L IMMATURE GRANULOCYTE % (test 0.4 % 0.0-2.0 N code = IG%) LYMPHOCYTE % (test code = LY%) 34.8 % 14.0-32.0 H MONOCYTE % (test code = MO%) 8.5 % 4.8-9.0 N EOSINOPHIL % (test code = EO%) 3.4 % 0.3-3.7 N BASOPHIL % (test code = BA%) 1.1 % 0.0-2.0 N NUCLEATED RBC % (test code = 0.0 % 0-0 N NRBC%) NEUTROPHIL # (test code = NT#) 4.73 x10 3/uL 2.0-7.6 N IMMATURE GRANULOCYTE # (test 0.04 x10 3/uL 0.00-0.03 H code = IG#) LYMPHOCYTE # (test code = LY#) 3.18 x10 3/uL 1.0-3.8 N MONOCYTE # (test code = MO#) 0.78 x10 3/uL 0.1-0.8 N EOSINOPHIL # (test code = EO#) 0.31 x10 3/uL 0.0-0.2 H BASOPHIL # (test code = BA#) 0.10 x10 3/uL 0.0-0.2 N NUCLEATED RBC # (test code = 0.00 x10 3/uL 0.0-0.1 N NRBC#) MANUAL DIFF REQUIRED (test code NO = MDIFF) - XR CHEST 1 [id number] 14:50:00 [place]: St: DIS Name: NNAMDI BARTH [facility] [facility] 1990 Age[facility]S: 28/[place] [address] [place] [address] Unit#: [id number] Loc: [place] [address] Phys: Luis Marino MD Acct: [id number] Dis Date: Status: DIS IN PHONE #: [phone] Exam Date: 06/30/2019 1424 FAX #: [phone] Reason: SOB EXAMS: CPT CODE: [id number] XR CHEST 1 V 73089 CHEST 1 VIEW: 06/30/2019 COMPARISON: June CLINICAL HISTORY: SOB FINDINGS: The cardiovascular silhouette is normal in size. No infiltrates or pulmonary edema is present. No evidence of pneumothorax. IMPRESSION: No acute pulmonary disease. at 1450 Reported and signed by: Kelvin Barbour M.D. CC: Technologist: RT Marla(August), RTT Trnscrd Date/Time/By: 06/30/2019 (6306) : By: [email or web address] Orig Print D/T: S: 06/30/2019 (6221) PAGE 1 Signed Report- XR CHEST 1 V 2019-06-30 14:50:00 [place]: St: ADM Name: NNAMDI BARTH [facility] : 1990 Age/S: 28/F [address] [place] [address] Unit#: [id number] Loc: G.4427 [place] [address] Phys: Luis Marino MD Acct: [id number] Dis Date: Status: ADM IN PHONE #: [phone] Exam Date: 06/30/2019 1424 FAX #: [phone] Reason: SOB EXAMS: CPT CODE: [id number] XR CHEST 1 V 70506 CHEST 1 VIEW: 06/30/2019 COMPARISON: June CLINICAL HISTORY: SOB FINDINGS: The cardiovascular silhouette is normal in size. No infiltrates or pulmonary edema is present. No evidence of pneumothorax. IMPRESSION: No acute pulmonary disease. at 6710 Reported and signed by: Kelvin Barbour M.D. CC: Technologist: RT Marla(R), RTT Trnscrd Date/Time/By: 06/30/2019 (0635) : By: [email or web address] Orig Print D/T: S: 06/30/2019 (9101) PAGE 1 Signed Report- XR CHEST 1 V 2019-06-30 14:50:00 [place]: St: DIS Name: NNAMDI BARTH [facility] : 1990 Age/S: 28/F [address] [place] [address] Unit#: [id number] Loc: G.4427 [place] [address] Phys: Luis Marino MD Acct: [id number] Dis Date: [id number] Status: DIS IN PHONE #: [phone] Exam Date: 06/30/2019 1424 FAX #: [phone] Reason: SOB EXAMS: CPT CODE: [id number] XR CHEST 1 V 85112 CHEST 1 VIEW: 06/30/2019 COMPARISON: June CLINICAL HISTORY: SOB FINDINGS: The cardiovascular silhouette is normal in size. No infiltrates or pulmonary edema is present. No evidence of pneumothorax. IMPRESSION: No acute pulmonary disease. at 1450 Reported and signed by: Kelvin Barbour M.D. CC: Technologist: Mary Dexter RT(R), RTT Trnscrd Date/Time/By: 06/30/2019 (0739) : By: [email or web address] Orig Print D/T: S: 06/30/2019 (2281) PAGE 1 Signed ReportBASIC METABOLIC [id number] 08:03:00 Test Item Value Reference Range Interpretation Comments SODIUM (test code = NA) 137 mEq/L 134-147 N POTASSIUM (test code = 4.3 mEq/L 3.4-5.0 K) CHLORIDE (test code = 103 mEq/L 100-108 N CL) CARBON DIOXIDE (test 27 mEq/L 21-33 N code = CO2) ANION GAP (test code = 11 0-20 N GAP) GLUCOSE (test code = 86 mg/dL 70-110 N GLU) BLOOD UREA NITROGEN 8 mg/dL 7-18 (test code = BUN) GLOMERULAR FILTRATION 188.7 110-120 H Units of measure = RATE (test code = GFR) ml/mi n/1.73 m2 CREATININE (test code = 0.4 mg/dL 0.6-1.3 L CREAT) CALCIUM (test code = 8.4 mg/dL 8.0-10.5 N CA) [id number] 08:03:00 Test Item Value Reference Range Interpretation Comments MAGNESIUM (test code = MAG) 2.00 mg/dL 1.8-2.4 N VITAMIN [id number] 08:03:00 Test Item Value Reference Range Interpretation Comments VITAMIN B12 (test code = VITB12) 1485 pg/mL 193-986 H FOLIC [id number] 08:03:00 Test Item Value Reference Range Interpretation Comments FOLIC ACID (test code = FOL) 21.5 ng/mL 3.1-17.5 H COMPREHENSIVE METABOLIC [id number] 09:38:00 Test Item Value Reference Range Interpretation Comments SODIUM (test code = NA) 139 mEq/L 134-147 N POTASSIUM (test code = 3.2 mEq/L 3.4-5.0 L K) CHLORIDE (test code = 104 mEq/L 100-108 N CL) CARBON DIOXIDE (test 29 mEq/L 21-33 N code = CO2) ANION GAP (test code = 9 0-20 N GAP) GLUCOSE (test code = 80 mg/dL 70-110 N GLU) BLOOD UREA NITROGEN 6 mg/dL 7-18 L (test code = BUN) GLOMERULAR FILTRATION 145.9 110-120 H Units of measure = RATE (test code = GFR) ml/mi n/1.73 m2 CREATININE (test code = 0.5 mg/dL 0.6-1.3 L CREAT) TOTAL PROTEIN (test 6.6 g/dL 6.4-8.2 N code = PROT) ALBUMIN (test code = 2.60 g/dL 3.4-5.0 L ALB) CALCIUM (test code = 8.6 mg/dL 8.0-10.5 N CA) BILIRUBIN TOTAL (test 0.1 MG/DL <1.5 code = BILT) SGOT/AST (test code = 14 IUnit/L 15-37 L AST) SGPT/ALT (test code = 12 IUnit/L 15-65 L ALT) ALKALINE PHOSPHATASE 63 IUnit/L 20-125 N TOTAL (test code = ALKP) CBC W/AUTO [id number] 07:48:00 Test Item Value Reference Range Interpretation Comments WHITE BLOOD CELL (test code = 10.97 x10 3/uL 4.5-11.0 N WBC) RED BLOOD CELL (test code = 3.37 x10 6/uL 3.54-5.02 L RBC) HEMOGLOBIN (test code = HGB) 11.9 g/dL 11.0-15.0 N HEMATOCRIT (test code = HCT) 36.9 % 33.0-45.0 N MEAN CELL VOLUME (test code = 109.5 fL 81.0-99.0 H MCV) MEAN CELL HGB (test code = 35.3 pg 27.0-33.0 H MCH) MEAN CELL HGB CONCETRATION 32.2 g/dL 33.0-37.0 L (test code = MCHC) RED CELL DISTRIBUTION WIDTH CV 12.9 % 11.5-14.5 N (test code = RDW) RED CELL DISTRIBUTION WIDTH SD 51.7 fL 37.0-54.0 N (test code = RDW-SD) PLATELET COUNT (test code = 480 x10 3/uL 150-400 H PLT) MEAN PLATELET VOLUME (test 10.5 fL 7.0-9.0 H code = MPV) NEUTROPHIL % (test code = NT%) 56.2 % 56.0-77.0 N IMMATURE GRANULOCYTE % (test 0.5 % 0.0-2.0 N code = IG%) LYMPHOCYTE % (test code = LY%) 31.6 % 14.0-32.0 N MONOCYTE % (test code = MO%) 8.8 % 4.8-9.0 N EOSINOPHIL % (test code = EO%) 1.7 % 0.3-3.7 N BASOPHIL % (test code = BA%) 1.2 % 0.0-2.0 N NUCLEATED RBC % (test code = 0.0 % 0-0 N NRBC%) NEUTROPHIL # (test code = NT#) 6.17 x10 3/uL 2.0-7.6 N IMMATURE GRANULOCYTE # (test 0.05 x10 3/uL 0.00-0.03 H code = IG#) LYMPHOCYTE # (test code = LY#) 3.47 x10 3/uL 1.0-3.8 N MONOCYTE # (test code = MO#) 0.96 x10 3/uL 0.1-0.8 H EOSINOPHIL # (test code = EO#) 0.19 x10 3/uL 0.0-0.2 N BASOPHIL # (test code = BA#) 0.13 x10 3/uL 0.0-0.2 N NUCLEATED RBC # (test code = 0.00 x10 3/uL 0.0-0.1 N NRBC#) MANUAL DIFF REQUIRED (test NO code = MDIFF) - XR CHEST 1 [id number] 15:07:00 [place]: [address] St: DIS Name: NNAMDI BARTH : 1990 Age/S: 28/F [address] [place] [address] Unit#: [id number] Loc: [place] [address] Phys: Luis Marino MD Acct: [id number] Dis Date: Status: DIS IN PHONE #: [phone] Exam Date: 06/25/2019 1454 FAX #: [phone] Reason: PRODUCTIVE COUGH EXAMS: CPT CODE: [id number] XR CHEST 1 V 63456 CHEST 1 VIEW: 06/25/2019 COMPARISON: June 22, 2019 CLINICAL HISTORY: PRODUCTIVE COUGH FINDINGS: The cardiovascular silhouette is normal in size. No infiltrates or pulmonary edema is present. There is no pneumothorax. A feeding tube is seen extending into the abdomen. Tip is not included on the x-ray. IMPRESSION: No acute pulmonary disease. at 1502 Reported and signed by: Kelvin Barbour M.D. CC: Technologist: RT Olamide(August) Trnscrd Date/Time/By: 06/25/2019 (1507) : By: [email or web address] Orig Print D/T: S: 06/25/2019 (6068)PAGE 1 Signed Report- XR CHEST 1 V 2019-06-25 15:07:00 [place]: St: ADM Name: NNAMDI BARTH : 1990 Age/S: 28/F [address] [place] [address] Unit#: [id number] Loc: G.4427 [place] [address] Phys: Luis Marino MD Acct: [id number] Dis Date: Status: ADM IN PHONE #: [phone] Exam Date: 06/25/2019 1454 FAX #: [phone] Reason: PRODUCTIVE COUGH EXAMS: CPT CODE: [id number] XR CHEST 1 V 23312 CHEST 1 VIEW: 06/25/2019 COMPARISON: June 22, 2019 CLINICAL HISTORY: PRODUCTIVE COUGH FINDINGS: The cardiovascular silhouette is normal in size. No infiltrates or pulmonary edema is present. There is no pneumothorax. A feeding tube is seen extending into the abdomen. Tip is not included on the x-ray. IMPRESSION: No acute pulmonary disease. at 1507 Reported and signed by: Kelvin Barbour M.D. CC: Technologist: SMITH Quiñonez) Trnscrd Date/Time/By: 06/25/2019 (1501) : By: [email or web address] Orig Print D/T: S: 06/25/2019 (1623)PAGE 1 Signed Report- XR CHEST 1 V 2019-06-25 15:07:00 [place]: St: DIS Name: NNAMDI BARTH [facility] [place] : 1990 Age/S: 28/F [address] [place] [address] Unit#: [id number] Loc: G.4427 [place] [address] Phys: Luis Marino MD Acct: [id number] Dis Date: [id number] Status: DIS IN PHONE #: [phone] Exam Date: 06/25/2019 5325 FAX #: [phone] Reason: PRODUCTIVE COUGH EXAMS: CPT CODE: [id number] XR CHEST 1 V 83169 CHEST 1 VIEW: 06/25/2019 COMPARISON: June 22, 2019 CLINICAL HISTORY: PRODUCTIVE COUGH FINDINGS: The cardiovascular silhouette is normal in size. No infiltrates or pulmonary edema is present. There is no pneumothorax. A feeding tube is seen extending into the abdomen. Tip is not included on the x-ray. IMPRESSION: No acute pulmonary disease. at 1507 Reported and signed by: Kelvin Barbour M.D. CC: Technologist: SMITH Quiñonez) Trnscrd Date/Time/By: 06/25/2019 (1473) : By: [email or web address] Orig Print D/T: S: 06/25/2019 (4784)PAGE 1 Signed ReportCOMPREHENSIVE METABOLIC [id number] 08:38:00 Test Item Value Reference Range Interpretation Comments SODIUM (test code = NA) 136 mEq/L 134-147 N POTASSIUM (test code = 4.0 mEq/L 3.4-5.0 N K) CHLORIDE (test code = 103 mEq/L 100-108 N CL) CARBON DIOXIDE (test 26 mEq/L 21-33 N code = CO2) ANION GAP (test code = 11 0-20 N GAP) GLUCOSE (test code = 96 mg/dL 70-110 N GLU) BLOOD UREA NITROGEN 6 mg/dL 7-18 L (test code = BUN) GLOMERULAR FILTRATION 145.9 110-120 H Units of measure = RATE (test code = GFR) ml/mi n/1.73 m2 CREATININE (test code = 0.5 mg/dL 0.6-1.3 L CREAT) TOTAL PROTEIN (test 6.8 g/dL 6.4-8.2 N code = PROT) ALBUMIN (test code = 2.50 g/dL 3.4-5.0 L ALB) CALCIUM (test code = 8.7 mg/dL 8.0-10.5 N CA) BILIRUBIN TOTAL (test 0.2 MG/DL <1.5 N code = BILT) SGOT/AST (test code = 15 IUnit/L 15-37 N AST) SGPT/ALT (test code = 14 IUnit/L 15-65 L ALT) ALKALINE PHOSPHATASE 75 IUnit/L 20-125 N TOTAL (test code = ALKP) [id number] 08:38:00 Test Item Value Reference Range Interpretation Comments AMYLASE (test code = OMKAR) 22 UNITS/L 25-115 L [id number] 08:38:00 Test Item Value Reference Range Interpretation Comments LIPASE (test code = LIP) 63 IUnit/L 73-393 L CBC W/AUTO [id number] 08:02:00 Test Item Value Reference Range Interpretation Comments WHITE BLOOD CELL (test code = 11.30 x10 3/uL 4.5-11.0 H WBC) RED BLOOD CELL (test code = 3.76 x10 6/uL 3.54-5.02 N RBC) HEMOGLOBIN (test code = HGB) 13.4 g/dL 11.0-15.0 N HEMATOCRIT (test code = HCT) 40.7 % 33.0-45.0 N MEAN CELL VOLUME (test code = 108.2 fL 81.0-99.0 H MCV) MEAN CELL HGB (test code = 35.6 pg 27.0-33.0 H MCH) MEAN CELL HGB CONCETRATION 32.9 g/dL 33.0-37.0 L (test code = MCHC) RED CELL DISTRIBUTION WIDTH CV 12.7 % 11.5-14.5 N (test code = RDW) RED CELL DISTRIBUTION WIDTH SD 51.8 fL 37.0-54.0 N (test code = RDW-SD) PLATELET COUNT (test code = 536 x10 3/uL 150-400 H PLT) MEAN PLATELET VOLUME (test 10.2 fL 7.0-9.0 H code = MPV) NEUTROPHIL % (test code = NT%) 59.3 % 56.0-77.0 N IMMATURE GRANULOCYTE % (test 0.6 % 0.0-2.0 N code = IG%) LYMPHOCYTE % (test code = LY%) 27.7 % 14.0-32.0 N MONOCYTE % (test code = MO%) 8.8 % 4.8-9.0 N EOSINOPHIL % (test code = EO%) 2.0 % 0.3-3.7 N BASOPHIL % (test code = BA%) 1.6 % 0.0-2.0 N NUCLEATED RBC % (test code = 0.0 % 0-0 N NRBC%) NEUTROPHIL # (test code = NT#) 6.69 x10 3/uL 2.0-7.6 N IMMATURE GRANULOCYTE # (test 0.07 x10 3/uL 0.00-0.03 H code = IG#) LYMPHOCYTE # (test code = LY#) 3.13 x10 3/uL 1.0-3.8 N MONOCYTE # (test code = MO#) 1.00 x10 3/uL 0.1-0.8 H EOSINOPHIL # (test code = EO#) 0.23 x10 3/uL 0.0-0.2 H BASOPHIL # (test code = BA#) 0.18 x10 3/uL 0.0-0.2 N NUCLEATED RBC # (test code = 0.00 x10 3/uL 0.0-0.1 N NRBC#) MANUAL DIFF REQUIRED (test NO code = MDIFF) - XR ABDOMEN 1V ([facility])2019-06-24 17:08:00 FAX: Roney Calderón MD [phone] [place]: St: DIS Name: BARTHNNAMDI [facility] : 1990 Age/S: 28/F [address] [place] [address] Unit#: [id number] Loc: [place] [address] Phys: Roney Haynes MD Acct: [id number] Dis Date: Status: DIS IN PHONE #: [phone] Exam Date: 06/24/2019 1651 FAX #: [phone] Reason: position of DHT EXAMS: CPT CODE: [id number] XR ABDOMEN 1V ([facility]) 19036 PROCEDURE: ABDOMEN SINGLE VIEW INDICATION: position of DHT COMPARISON: There are no previous relevant studies available for correlation. FINDINGS: Supine view of the lower chest and upper abdomen was obtainedfor tube placement. Dobbhoff tube courses through the stomach and duodenum, tip overlying the left mid abdomen at the level of proximal jejunum. The bowel gas pattern is within normal limits. Small volume of fecal material in the visualized colon. No gross free intraperitoneal air, soft tissue masses or pathologic calcifications. The skeleton is intact. The visualized lung bases are clear. IMPRESSION: Dobbhoff tube positioned in the proximal jejunum. SL: [id number] at 1708 Reported and signed by: Bhavesh Kaufman M.D. CC: Roney Haynes MD Technologist: RT Kirstin(R) Trnscrd Date/Time/By: 06/24/2019 (3700) : By: IngaKWL Orig Print D/T: S: 06/24/2019 (7758) PAGE 1 Signed Report- XR ABDOMEN 1V ([facility])2019-06-24 17:08:00 FAX: Roney Calderón MD [phone] [place]: St: ADM Name: NNAMDI BARTH [facility] : 1990 Age/S: 28/F [address] [place] [address] Unit#: [id number] Loc: G.4427 [place] [address] Phys: Roney Haynes MD Acct: [id number] Dis Date: Status: ADM IN PHONE #: [phone] Exam Date: 06/24/2019 165 FAX #: [phone] Reason: position of DHT EXAMS: CPT CODE: [id number] XR ABDOMEN 1V ([facility]) 43070 PROCEDURE: ABDOMEN SINGLE VIEW INDICATION: position of DHT COMPARISON: There are no previous relevant studies available for correlation. FINDINGS: Supine view of the lower chest and upper abdomen was obtainedfor tube placement. Dobbhoff tube courses through the stomach and duodenum, tip overlying the left mid abdomen at the level of proximal jejunum. The bowel gas pattern is within normal limits. Small volume of fecal material in the visualized colon. No gross free intraperitoneal air, soft tissue masses or pathologic calcifications. The skeleton is intact. The visualized lung bases are clear. IMPRESSION: Dobbhoff tube positioned in the proximal jejunum. SL: [id number] at 1708 Reported and signed by: Bhavesh Kaufman M.D. CC: Roney Haynes MD Technologist: RT Kirstin(R) Trnscrd Date/Time/By: 06/24/2019 (9349) : By: IngaKWL Orig Print D/T: S: 06/24/2019 (7494) PAGE 1 Signed Report- XR ABDOMEN 1V ([facility])2019-06-24 17:08:00 FAX: Roney Calderón MD [phone] [place]: St: DIS Name: NNAMDI BARTH [facility] : 1990 Age/S: 28/F [address] [place] [address] Unit#: [id number] Loc: G.4427 [place] [address] Phys: Roney Haynes MD Acct: [id number] Dis Date: 20190701 Status: DIS IN PHONE #: [phone] Exam Date: 06/24/2019 165 FAX #: [phone] Reason: position of DHT EXAMS: CPT CODE: [id number] XR ABDOMEN 1V ([facility]) 76811 PROCEDURE: ABDOMEN SINGLE VIEW INDICATION: position of DHT COMPARISON: There are no previous relevant studies available for correlation. FINDINGS: Supine view of the lower chest and upper abdomen was obtainedfor tube placement. Dobbhoff tube courses through the stomach and duodenum, tip overlying the left mid abdomen at the level of proximal jejunum. The bowel gas pattern is within normal limits. Small volume of fecal material in the visualized colon. No gross free intraperitoneal air, soft tissue masses or pathologic calcifications. The skeleton is intact. The visualized lung bases are clear. IMPRESSION: Dobbhoff tube positioned in the proximal jejunum. SL: [id number] at 1708 Reported and signed by: Bhavesh Kaufman M.D. CC: Roney Haynes MD Technologist: RT Kirstin(R) Trnscrd Date/Time/By: 06/24/2019 (1708) : By: IngaKWL Orig Print D/T: S: 06/24/2019 (2737) PAGE 1 Signed Report- CT ABD PELVIS W/[id number] 18:30:00 Name: NNAMDI BARTH [facility] : 1990 Age/S: 28 / F [address] [place] [address] Blvd Unit #: [id number] Loc: [facility] [id number] Phys: Luis Marino MD Acct: [id number] Dis Date: Status: DIS IN PHONE #: [phone] Exam Date: 06/22/2019 1755 FAX #: [phone] Reason: PACREATITIS ; INCREASED PAIN; N/V EXAMS: CPTCODE: [id number] CT ABD PELVIS W/CONT 73959 CT abdomen p russell with contrast: Multiplanar helical imaging acquired from the diaphragm through the symphysis pubis after IV injection 100 mL Isovue- 300. No oral contrast. CT imaging performed at this location utilizes radiation dose optimization techniques which include one or more of the following: -Automated exposure control -Adjustment of the mA and/or kV according to patient size -Use of iterative reconstruction technique CT Radiation Dose YLP588 mGy-cm HISTORY: Pancreatitis with increasing pain, nausea and vomiting COMPARISON: 06/14/2019. FINDINGS: The lung bases are clear. A feeding tube is present with tip in the proximal jejunum. Liver and spleen show normal enhancement. The biliary ducts are not dilated. Gallbladder, adrenal glands and both kidneys are unremarkable. No renal stone, mass or hydronephrosis. Normal caliber abdominal aorta. Significantly improved inflammatory change around the pancreatic tail. A 2.2 cm fluid collection has developed ventral to the pancreatic tail likely a small pseudocyst. No pancreatic necrosis or mass. The splenic vein remains patent. Large and small bowel loops are normal in caliber without obstruction or inflamed segments. Normal appendix. No other fluid seen in the abdomen or pelvis. Small follicles in each ovary. The uterus, bladder and perirectal space unremarkable. Review on bone window shows no acute bony pathology. No vertebral compression IMPRESSION: 1. Significant improvement in the degree of peripancreatic inflammatory change around the pancreatic tail. 2. Development of 2.2 cm fluid collection ventral to the pancreatic tail compatible with a small pseudocyst.3. Tip of the feeding tube is in the proximal jejunum. SL: EG-H PAGE 1 Signed Report (CONTINUED) Name: NNAMDI BARTH : 1990 Age/S: 28 / F [address] [place] [address] Unit #: [id number] Loc: [place] [address] Phys: Luis Marino MD Acct: [id number] DisDate: Status: DIS IN PHONE #: [phone] Exam Date: 06/22/20191754 FAX #: [phone] Reason: PACREATITIS ; INCREASED PAIN; N/V EXAMS: CPT CODE: [id number] CT ABD PELVIS W/CONT 97154 <Continued> at 1830 Reported and signed by: Arslan De La Fuente M.D. CC: Technologist:RT Wojciech(R) CTDI: DLP: Trnscb Date/Time: 06/22/2019 (1830) tANA Orig Print D/T: S: 06/22/2019 (1833) PAGE 2 Signed Report- CT ABD PELVIS W/[id number] 18:30:00 Name: NNAMDI BARTH : 1990 Age/S: 28 / F [address] [place] [address] Unit #: [id number] Loc: [place], [id number] Phys: Luis Marino MD Acct: [id number] Dis Date: Status: ADM IN PHONE #: [phone] Exam Date: 06/22/20191754 FAX #: [phone] Reason: PACREATI TIS ; INCREASED PAIN; N/V EXAMS: CPTCODE: [id number] CT ABD PELVIS W/CONT 14488 CT abdomen pelvis with contrast: Multiplanar helical imaging acquired from the diaphragm through the symphysis pubis after IV injection 100 mL Isovue-300. No oral contrast. CT imaging performed at this location utilizes radiation dose optimization techniques which include one or more of the following: -Automated exposure control -Adjustment of the mA and/or kV according to patient size -Use of iterative reconstruction technique CT Radiation Dose VQF247 mGy-cm HISTORY: Pancreatitis with increasing pain, nausea and vomiting COMPARISON: 06/14/2019. FINDINGS: The lung bases are clear. A feeding tube is present with tip in the proximal jejunum. Liver and spleen show normal enhancement. The biliary ducts are not dilated. Gallbladder, adrenal glands and both kidneys are unremarkable. No renal stone, mass or hydronephrosis. Normal caliber abdominal aorta. Significantly improved inflammatory change around the pancreatic tail. A 2.2 cm fluid collection has developed ventral to the pancreatic tail likely a small pseudocyst. No pancreatic necrosis or mass. The splenic vein remains patent. Large and small bowel loops are normal in ca liber without obstruction or inflamed segments. Normal appendix. No other fluid seen in the abdomen or pelvis. Small follicles in each ovary. The uterus, bladder and perirectal space unremarkable. Review on bone window shows no acute bony pathology. No vertebral compression IMPRESSION: 1. Significant improvement in the degree of peripancreatic inflammatory change around the pancreatic tail. 2. Development of 2.2 cm fluid collection ventral to the pancreatic tail compatible with a small pseudocyst.3. Tip of the feeding tube is in the proximal jejunum. SL: - PAGE 1 Signed Report (CONTINUED) Name: NNAMDI BARTH [facility] : 1990 Age/S: 28 / F [address] [place] [address] Unit #: [id number] Loc: [place] [address] Phys: Luis Marino MD Acct: [id number] DisDate: Status: ADM IN PHONE #: [phone] Exam Date: 06/22/2019 175 FAX #: [phone] Reason: PACREATITIS ; INCREASED PAIN; N/V EXAMS: CPT CODE: [id number] CT ABD PELVIS W/CONT 87809 <Continued> at 1830 Reported and signed by: Arslan De La Fuente M.D. CC: Technologist:RT Wojciech(R) CTDI: DLP: Trnscb Date/Time: 06/22/2019 (183) Lexie Orig Print D/T: S: 06/22/2019 (9645) PAGE 2 Signed Report- CT ABD PELVIS [id number] 18:30:00 Name: NNAMDI BARTH [facility] : 1990 Age/S: 28 / F [address] [place] [address] Blvd Unit #: [id number] Loc: [facility] [id number] Phys: Luis Marino MD Acct: [id number] Dis Date: 07/01/2019 Status: DIS IN PHONE #: [phone] Exam Date: 06/22/2019 1755 FAX #: [phone] Reason: PACREATI TIS ; INCREASED PAIN; N/V EXAMS: CPTCODE: [id number] CT ABD PELVIS W/CONT 42934 CT abdomen pelvis with contrast: Multiplanar helical imaging acquired from the diaphragm through the symphysis pubis after IV injection 100 mL Isovue-300. No oral contrast. CT imaging performed at this location utilizes radiation dose optimization techniques which include one or more of the following: -Automated exposure control -Adjustment of the mA and/or kV according to patient size -Use of iterative reconstruction technique CT Radiation Dose HKP687 mGy-cm HISTORY: Pancreatitis with increasing pain, nausea and vomiting COMPARISON: 06/14/2019. FINDINGS: The lung bases are clear. A feeding tube is present with tip in the proximal jejunum. Liver and spleen show normal enhancement. The biliary ducts are not dilated. Gallbladder, adrenal glands and both kidneys are unremarkable. No renal stone, mass or hydronephrosis. Normal caliber abdominal aorta. Significantly improved inflammatory change around the pancreatic tail. A 2.2 cm fluid collection has developed ventral to the pancreatic tail likely a small pseudocyst. No pancreatic necrosis or mass. The splenic vein remains patent. Large and small bowel loops are normal in ca liber without obstruction or inflamed segments. Normal appendix. No other fluid seen in the abdomen or pelvis. Small follicles in each ovary. The uterus, bladder and perirectal space unremarkable. Review on bone window shows no acute bony pathology. No vertebral compression IMPRESSION: 1. Significant improvement in the degree of peripancreatic inflammatory change around the pancreatic tail. 2. Development of 2.2 cm fluid collection ventral to the pancreatic tail compatible with a small pseudocyst.3. Tip of the feeding tube is in the proximal jejunum. SL: EG-H PAGE 1 Signed Report (CONTINUED) Name: NNAMDI BARTH : 1990 Age/S: 28 / F [address] [place] [address] Unit #: [id number] Loc: [place] [address] Phys: Luis Marino MD Acct: [id number] DisDate: 07/01/2019 Status: DIS IN PHONE #: [phone] Exam Date: 06/22/2019 4778 FAX #: [phone] Reason: PACREATITIS ; INCREASED PAIN; N/V EXAMS: CPT CODE: [id number] 6 CT ABD PELVIS W/CONT 48902 <Continued> at 1830 Reported and signed by: Arslan De La Fuente M.D. CC: Technologist:RT Wojciech(R) CTDI: DLP: Trnscb Date/Time: 06/22/2019 (1829) Lexie Orig Print D/T: S: 06/22/2019 (183) PAGE 2 Signed Report- XR CHEST 1 [id number] 15:35:00 [place]: St: DIS Name: NNAMDI BARTH : 1990 Age/S: 28/F [address] [place] [address] Unit#: [id number] Loc: [place] [address] Phys: Luis Marino MD Acct: [id number] Dis Date: Status: DIS IN PHONE #: [phone] Exam Date: 06/22/20191532 FAX #: [phone] Reason: SOB EXAMS: CPT CODE: [id number] XR CHEST 1 V [id number] EXAM: CHEST SINGLE VIEW HISTORY: 28-year-old female with shortness of breath COMPARISON: Chest radiograph 06/14/2019 FINDINGS: The lungs are clear. The cardiomediastinal silhouette is normal for projection. No acuteosseous abnormality. Nasogastric tube noted coursing into the abdomen, though terminates beneath the inferior margin of the radiograph. IMPRESSION: 1. No acute cardiopulmonary abnormality. 2. Nasogastric tube noted coursing into the abdomen, though terminates beneath the inferior margin of the radiograph. SL:[id number] at 1533 Reported and signed by: Collette Rod M.D. CC: Technologist: RT Ephraim(uAgust)(Chilo) Trnscrd Date/Time/By:06/22/2019 (1537) : By: [email or web address] Orig Print D/T: S: 06/22/2019 (1537) PAGE 1 Signed Report- XR CHEST 1 V 2019-06-22 15:35:00 [place]: St: ADM Name: NNAMDI BARTH [facility] : 1990 Age/S: 28/F [address] [place] [address] Blvd Unit#: [id number] Loc: G.4427 [place] [address] Phys: Luis Marino MD Acct: [id number] Dis Date: Status: ADM IN PHONE #: [phone] Exam Date: 06/22/20191532 FAX #: [phone] Reason: SOB EXAMS: CPT CODE: [id number] XR CHEST 1 V [id number] EXAM: CHEST SINGLE VIEW HISTORY: 28-year-old female with shortness of breath COMPARISON: Chest radiograph 06/14/2019 FINDINGS: The lungs are clear. The cardiomediastinal silhouette is normal for projection. No acuteosseous abnormality. Nasogastric tube noted coursing into the abdomen, though terminates beneath the inferior margin of the radiograph. IMPRESSION: 1. No acute cardiopulmonary abnormality. 2. Nasogastric tube noted coursing into the abdomen, though terminates beneath the inferior margin of the radiograph. SL:[id number] at 1534 Reported and signed by: Collette Rod M.D. CC: Technologist: SMITH Ye)(Chilo) Trnscrd Date/Time/By:06/22/2019 (9397) : By: [email or web address] Orig Print D/T: S: 06/22/2019 (3956) PAGE 1 Signed Report- XR CHEST 1 V 2019-06-22 15:35:00 [place]: St: DIS Name: NNAMDI BARTH [facility] [place] : 1990 Age/S: 28/F [address] [place] [address] Unit#: [id number] Loc: G.4427 [place] [address] Phys: Luis Marino MD Acct: [id number] Dis Date: [id number] Status: DIS IN PHONE #: [phone] Exam Date: 06/22/2019 1533 FAX #: [phone] Reason: SOB EXAMS: CPT CODE: [id number] XR CHEST 1 V [id number] EXAM: CHEST SINGLE VIEW HISTORY: 28-year-old female with shortness of breath COMPARISON: Chest radiograph 06/14/2019 FINDINGS: The lungs are clear. The cardiomediastinal silhouette is normal for projection. No acuteosseous abnormality. Nasogastric tube noted coursing into the abdomen, though terminates beneath the inferior margin of the radiograph. IMPRESSION: 1. No acute cardiopulmonary abnormality. 2. Nasogastric tube noted coursing into the abdomen, though terminates beneath the inferior margin of the radiograph. SL:[id number] at 1530 Reported and signed by: Collette Rod M.D. CC: Technologist: RT Ephraim(August)(M) Trnscrd Date/Time/By:06/22/2019 (5759) : By: [email or web address] Orig Print D/T: S: 06/22/2019 (7526) PAGE 1 Signed ReportCBC W/AUTO DIFF 2019-06-22 08:36:00 Test Item Value Reference Range Interpretation Comments WHITE BLOOD CELL (test code = 10.66 x10 3/uL 4.5-11.0 N WBC) RED BLOOD CELL (test code = 3.94 x10 6/uL 3.54-5.02 N RBC) HEMOGLOBIN (test code = HGB) 14.1 g/dL 11.0-15.0 N HEMATOCRIT (test code = HCT) 43.5 % 33.0-45.0 N MEAN CELL VOLUME (test code = 110.4 fL 81.0-99.0 H MCV) MEAN CELL HGB (test code = 35.8 pg 27.0-33.0 H MCH) MEAN CELL HGB CONCETRATION 32.4 g/dL 33.0-37.0 L (test code = MCHC) RED CELL DISTRIBUTION WIDTH CV 13.3 % 11.5-14.5 N (test code = RDW) RED CELL DISTRIBUTION WIDTH SD 55.2 fL 37.0-54.0 H (test code = RDW-SD) PLATELET COUNT (test code = 613 x10 3/uL 150-400 H PLT) MEAN PLATELET VOLUME (test 10.6 fL 7.0-9.0 H code = MPV) NEUTROPHIL % (test code = NT%) 54.6 % 56.0-77.0 L IMMATURE GRANULOCYTE % (test 1.2 % 0.0-2.0 N code = IG%) LYMPHOCYTE % (test code = LY%) 31.5 % 14.0-32.0 N MONOCYTE % (test code = MO%) 9.1 % 4.8-9.0 H EOSINOPHIL % (test code = EO%) 1.9 % 0.3-3.7 N BASOPHIL % (test code = BA%) 1.7 % 0.0-2.0 N NUCLEATED RBC % (test code = 0.0 % 0-0 N NRBC%) NEUTROPHIL # (test code = NT#) 5.82 x10 3/uL 2.0-7.6 N IMMATURE GRANULOCYTE # (test 0.13 x10 3/uL 0.00-0.03 H code = IG#) LYMPHOCYTE # (test code = LY#) 3.36 x10 3/uL 1.0-3.8 N MONOCYTE # (test code = MO#) 0.97 x10 3/uL 0.1-0.8 H EOSINOPHIL # (test code = EO#) 0.20 x10 3/uL 0.0-0.2 N BASOPHIL # (test code = BA#) 0.18 x10 3/uL 0.0-0.2 N NUCLEATED RBC # (test code = 0.00 x10 3/uL 0.0-0.1 N NRBC#) MANUAL DIFF REQUIRED (test NO code = MDIFF) BASIC METABOLIC [id number] 07:58:00 Test Item Value Reference Range Interpretation Comments SODIUM (test code = NA) 138 mEq/L 134-147 N POTASSIUM (test code = 4.1 mEq/L 3.4-5.0 N K) CHLORIDE (test code = 102 mEq/L 100-108 N CL) CARBON DIOXIDE (test 28 mEq/L 21-33 N code = CO2) ANION GAP (test code = 12 0-20 N GAP) GLUCOSE (test code = 77 mg/dL 70-110 N GLU) BLOOD UREA NITROGEN 12 mg/dL 7-18 N (test code = BUN) GLOMERULAR FILTRATION 118.2 110-120 N Units of measure = RATE (test code = GFR) ml/mi n/1.73 m2 CREATININE (test code = 0.6 mg/dL 0.6-1.3 N CREAT) CALCIUM (test code = 9.1 mg/dL 8.0-10.5 N CA) COMPREHENSIVE METABOLIC [id number] 08:28:00 Test Item Value Reference Range Interpretation Comments SODIUM (test code = NA) 137 mEq/L 134-147 N POTASSIUM (test code = 4.0 mEq/L 3.4-5.0 N K) CHLORIDE (test code = 102 mEq/L 100-108 N CL) CARBON DIOXIDE (test 28 mEq/L 21-33 N code = CO2) ANION GAP (test code = 11 0-20 N GAP) GLUCOSE (test code = 76 mg/dL 70-110 N GLU) BLOOD UREA NITROGEN 11 mg/dL 7-18 N (test code = BUN) GLOMERULAR FILTRATION 118.2 110-120 N Units of measure = RATE (test code = GFR) ml/mi n/1.73 m2 CREATININE (test code = 0.6 mg/dL 0.6-1.3 N CREAT) TOTAL PROTEIN (test 6.6 g/dL 6.4-8.2 N code = PROT) ALBUMIN (test code = 2.50 g/dL 3.4-5.0 L ALB) CALCIUM (test code = 8.8 mg/dL 8.0-10.5 N CA) BILIRUBIN TOTAL (test 0.2 MG/DL <1.5 N code = BILT) SGOT/AST (test code = 14 IUnit/L 15-37 L AST) SGPT/ALT (test code = 14 IUnit/L 15-65 L ALT) ALKALINE PHOSPHATASE 85 IUnit/L 20-125 N TOTAL (test code = ALKP) [id number] 08:28:00 Test Item Value Reference Range Interpretation Comments AMYLASE (test code = OMKAR) 27 UNITS/L 25-115 N [id number] 08:28:00 Test Item Value Reference Range Interpretation Comments LIPASE (test code = LIP) 132 IUnit/L 73-393 N CBC W/AUTO [id number] 08:11:00 Test Item Value Reference Range Interpretation Comments WHITE BLOOD CELL (test code = 10.80 x10 3/uL 4.5-11.0 N WBC) RED BLOOD CELL (test code = 3.60 x10 6/uL 3.54-5.02 N RBC) HEMOGLOBIN (test code = HGB) 12.9 g/dL 11.0-15.0 N HEMATOCRIT (test code = HCT) 40.1 % 33.0-45.0 N MEAN CELL VOLUME (test code = 111.4 fL 81.0-99.0 H MCV) MEAN CELL HGB (test code = 35.8 pg 27.0-33.0 H MCH) MEAN CELL HGB CONCETRATION 32.2 g/dL 33.0-37.0 L (test code = MCHC) RED CELL DISTRIBUTION WIDTH CV 13.6 % 11.5-14.5 N (test code = RDW) RED CELL DISTRIBUTION WIDTH SD 56.3 fL 37.0-54.0 H (test code = RDW-SD) PLATELET COUNT (test code = 588 x10 3/uL 150-400 H PLT) MEAN PLATELET VOLUME (test 10.6 fL 7.0-9.0 H code = MPV) NEUTROPHIL % (test code = NT%) 63.6 % 56.0-77.0 N IMMATURE GRANULOCYTE % (test 0.9 % 0.0-2.0 N code = IG%) LYMPHOCYTE % (test code = LY%) 24.7 % 14.0-32.0 N MONOCYTE % (test code = MO%) 8.4 % 4.8-9.0 N EOSINOPHIL % (test code = EO%) 1.3 % 0.3-3.7 N BASOPHIL % (test code = BA%) 1.1 % 0.0-2.0 N NUCLEATED RBC % (test code = 0.0 % 0-0 N NRBC%) NEUTROPHIL # (test code = NT#) 6.86 x10 3/uL 2.0-7.6 N IMMATURE GRANULOCYTE # (test 0.10 x10 3/uL 0.00-0.03 H code = IG#) LYMPHOCYTE # (test code = LY#) 2.67 x10 3/uL 1.0-3.8 N MONOCYTE # (test code = MO#) 0.91 x10 3/uL 0.1-0.8 H EOSINOPHIL # (test code = EO#) 0.14 x10 3/uL 0.0-0.2 N BASOPHIL # (test code = BA#) 0.12 x10 3/uL 0.0-0.2 N NUCLEATED RBC # (test code = 0.00 x10 3/uL 0.0-0.1 N NRBC#) MANUAL DIFF REQUIRED (test NO code = MDIFF) PROTHROMBIN [id number] 07:35:00 Test Item Value Reference Range Interpretation Comments PROTHROMBIN TIME 11.6 SECONDS 9.3-12.9 N PATIENT (test code = PTP) INTERNATIONAL NORMAL 1.1 0.8-1.2 N TARGET RATIO (test code = INR BY IN DICATION INR) Indication INR1. Prophyl axis of venous thrombos is 2.0 - 3. 0 (orthopedic [facility]ton harry), Prophylaxis of venous thrombos is (other than hig h-risk surgery), Olga Lidia tment of Deep Vein Thrombosis/Pulm onary Embolism, Preve ntion of systemic emb olism - Tissue heart va lves, Acute Myocardia l Infarction (to prevent systemic embo lism), Valvular heart disease, Atri al Fibrillation, Bileaflet mecha nical valve in aortic position.2. Mec hanical prosthetic valv es (high risk), 2.5 - 3.5 Presence of Lupus Anticoagu lant or Antiphospholi pid Antibodies, Pre vention of systemic e mbolism - Acute Myocard ial Infarction (t o prevent recurre nt infarct). [id number] 04:36:00 Test Item Value Reference Range Interpretation Comments AMYLASE (test code = OMKAR) 25 UNITS/L 25-115 N [id number] 04:36:00 Test Item Value Reference Range Interpretation Comments LIPASE (test code = LIP) 140 IUnit/L 73-393 N BASIC METABOLIC [id number] 04:41:00 Test Item Value Reference Range Interpretation Comments SODIUM (test code = NA) 138 mEq/L 134-147 N POTASSIUM (test code = 4.3 mEq/L 3.4-5.0 K) CHLORIDE (test code = 107 mEq/L 100-108 N CL) CARBON DIOXIDE (test 28 mEq/L 21-33 N code = CO2) ANION GAP (test code = 7 0-20 N GAP) GLUCOSE (test code = 95 mg/dL 70-110 N GLU) BLOOD UREA NITROGEN 11 mg/dL 7-18 N (test code = BUN) GLOMERULAR FILTRATION 118.2 110-120 N Units of measure = RATE (test code = GFR) ml/mi n/1.73 m2 CREATININE (test code = 0.6 mg/dL 0.6-1.3 N CREAT) CALCIUM (test code = 8.5 mg/dL 8.0-10.5 N CA) CBC W/AUTO [id number] 04:22:00 Test Item Value Reference Range Interpretation Comments WHITE BLOOD CELL (test code = 10.53 x10 3/uL 4.5-11.0 N WBC) RED BLOOD CELL (test code = 3.55 x10 6/uL 3.54-5.02 N RBC) HEMOGLOBIN (test code = HGB) 12.7 g/dL 11.0-15.0 N HEMATOCRIT (test code = HCT) 39.0 % 33.0-45.0 N MEAN CELL VOLUME (test code = 109.9 fL 81.0-99.0 H MCV) MEAN CELL HGB (test code = 35.8 pg 27.0-33.0 H MCH) MEAN CELL HGB CONCETRATION 32.6 g/dL 33.0-37.0 L (test code = MCHC) RED CELL DISTRIBUTION WIDTH CV 13.8 % 11.5-14.5 N (test code = RDW) RED CELL DISTRIBUTION WIDTH SD 57.1 fL 37.0-54.0 H (test code = RDW-SD) PLATELET COUNT (test code = 560 x10 3/uL 150-400 H PLT) MEAN PLATELET VOLUME (test 10.0 fL 7.0-9.0 H code = MPV) NEUTROPHIL % (test code = NT%) 57.7 % 56.0-77.0 N IMMATURE GRANULOCYTE % (test 1.6 % 0.0-2.0 N code = IG%) LYMPHOCYTE % (test code = LY%) 28.7 % 14.0-32.0 N MONOCYTE % (test code = MO%) 9.5 % 4.8-9.0 H EOSINOPHIL % (test code = EO%) 1.3 % 0.3-3.7 N BASOPHIL % (test code = BA%) 1.2 % 0.0-2.0 N NUCLEATED RBC % (test code = 0.0 % 0-0 N NRBC%) NEUTROPHIL # (test code = NT#) 6.07 x10 3/uL 2.0-7.6 N IMMATURE GRANULOCYTE # (test 0.17 x10 3/uL 0.00-0.03 H code = IG#) LYMPHOCYTE # (test code = LY#) 3.02 x10 3/uL 1.0-3.8 N MONOCYTE # (test code = MO#) 1.00 x10 3/uL 0.1-0.8 H EOSINOPHIL # (test code = EO#) 0.14 x10 3/uL 0.0-0.2 N BASOPHIL # (test code = BA#) 0.13 x10 3/uL 0.0-0.2 N NUCLEATED RBC # (test code = 0.00 x10 3/uL 0.0-0.1 N NRBC#) MANUAL DIFF REQUIRED (test NO code = MDIFF) CBC W/AUTO [id number] 05:30:00 Test Item Value Reference Range Interpretation Comments WHITE BLOOD CELL (test code = 7.73 x10 3/uL 4.5-11.0 N WBC) RED BLOOD CELL (test code = 3.47 x10 6/uL 3.54-5.02 L RBC) HEMOGLOBIN (test code = HGB) 12.4 g/dL 11.0-15.0 N HEMATOCRIT (test code = HCT) 37.8 % 33.0-45.0 N MEAN CELL VOLUME (test code = 108.9 fL 81.0-99.0 H MCV) MEAN CELL HGB (test code = MCH) 35.7 pg 27.0-33.0 H MEAN CELL HGB CONCETRATION 32.8 g/dL 33.0-37.0 L (test code = MCHC) RED CELL DISTRIBUTION WIDTH CV 13.9 % 11.5-14.5 N (test code = RDW) RED CELL DISTRIBUTION WIDTH SD 56.5 fL 37.0-54.0 H (test code = RDW-SD) PLATELET COUNT (test code = 528 x10 3/uL 150-400 H PLT) MEAN PLATELET VOLUME (test code 9.7 fL 7.0-9.0 H = MPV) NEUTROPHIL % (test code = NT%) 45.9 % 56.0-77.0 L IMMATURE GRANULOCYTE % (test 1.9 % 0.0-2.0 N code = IG%) LYMPHOCYTE % (test code = LY%) 35.7 % 14.0-32.0 H MONOCYTE % (test code = MO%) 14.7 % 4.8-9.0 H EOSINOPHIL % (test code = EO%) 0.9 % 0.3-3.7 N BASOPHIL % (test code = BA%) 0.9 % 0.0-2.0 N NUCLEATED RBC % (test code = 0.0 % 0-0 N NRBC%) NEUTROPHIL # (test code = NT#) 3.54 x10 3/uL 2.0-7.6 N IMMATURE GRANULOCYTE # (test 0.15 x10 3/uL 0.00-0.03 H code = IG#) LYMPHOCYTE # (test code = LY#) 2.76 x10 3/uL 1.0-3.8 N MONOCYTE # (test code = MO#) 1.14 x10 3/uL 0.1-0.8 H EOSINOPHIL # (test code = EO#) 0.07 x10 3/uL 0.0-0.2 N BASOPHIL # (test code = BA#) 0.07 x10 3/uL 0.0-0.2 N NUCLEATED RBC # (test code = 0.00 x10 3/uL 0.0-0.1 N NRBC#) MANUAL DIFF REQUIRED (test code NO = MDIFF) RBC [id number] 05:30:00 Test Item Value Reference Range Interpretation Comments POLYCHROMASIA (test code = POLC) SLIGHT ANISOCYTOSIS (test code = ANISO) 1+ MACROCYTOSIS (test code = MACR) 1+ BASIC METABOLIC [id number] 05:27:00 Test Item Value Reference Range Interpretation Comments SODIUM (test code = NA) 139 mEq/L 134-147 N POTASSIUM (test code = 3.4 mEq/L 3.4-5.0 N K) CHLORIDE (test code = 106 mEq/L 100-108 N CL) CARBON DIOXIDE (test 26 mEq/L 21-33 N code = CO2) ANION GAP (test code = 10 0-20 N GAP) GLUCOSE (test code = 99 mg/dL 70-110 N GLU) BLOOD UREA NITROGEN 9 mg/dL 7-18 (test code = BUN) GLOMERULAR FILTRATION 118.2 110-120 N Units of measure = RATE (test code = GFR) ml/mi n/1.73 m2 CREATININE (test code = 0.6 mg/dL 0.6-1.3 N CREAT) CALCIUM (test code = 8.7 mg/dL 8.0-10.5 N CA) CBC W/AUTO [id number] 05:01:00 Test Item Value Reference Range Interpretation Comments WHITE BLOOD CELL (test code = 7.73 x10 3/uL 4.5-11.0 N WBC) RED BLOOD CELL (test code = 3.47 x10 6/uL 3.54-5.02 L RBC) HEMOGLOBIN (test code = HGB) 12.4 g/dL 11.0-15.0 N HEMATOCRIT (test code = HCT) 37.8 % 33.0-45.0 N MEAN CELL VOLUME (test code = 108.9 fL 81.0-99.0 H MCV) MEAN CELL HGB (test code = MCH) 35.7 pg 27.0-33.0 H MEAN CELL HGB CONCETRATION 32.8 g/dL 33.0-37.0 L (test code = MCHC) RED CELL DISTRIBUTION WIDTH CV 13.9 % 11.5-14.5 N (test code = RDW) RED CELL DISTRIBUTION WIDTH SD 56.5 fL 37.0-54.0 H (test code = RDW-SD) PLATELET COUNT (test code = 528 x10 3/uL 150-400 H PLT) MEAN PLATELET VOLUME (test code 9.7 fL 7.0-9.0 H = MPV) NEUTROPHIL % (test code = NT%) 45.9 % 56.0-77.0 L IMMATURE GRANULOCYTE % (test 1.9 % 0.0-2.0 N code = IG%) LYMPHOCYTE % (test code = LY%) 35.7 % 14.0-32.0 H MONOCYTE % (test code = MO%) 14.7 % 4.8-9.0 H EOSINOPHIL % (test code = EO%) 0.9 % 0.3-3.7 N BASOPHIL % (test code = BA%) 0.9 % 0.0-2.0 N NUCLEATED RBC % (test code = 0.0 % 0-0 N NRBC%) NEUTROPHIL # (test code = NT#) 3.54 x10 3/uL 2.0-7.6 N IMMATURE GRANULOCYTE # (test 0.15 x10 3/uL 0.00-0.03 H code = IG#) LYMPHOCYTE # (test code = LY#) 2.76 x10 3/uL 1.0-3.8 N MONOCYTE # (test code = MO#) 1.14 x10 3/uL 0.1-0.8 H EOSINOPHIL # (test code = EO#) 0.07 x10 3/uL 0.0-0.2 N BASOPHIL # (test code = BA#) 0.07 x10 3/uL 0.0-0.2 N NUCLEATED RBC # (test code = 0.00 x10 3/uL 0.0-0.1 N NRBC#) MANUAL DIFF REQUIRED (test code NO = MDIFF) RBC [id number] 05:01:00 Test Item Value Reference Range Interpretation Comments ANISOCYTOSIS (test code = ANISO) CBC W/AUTO [id number] 05:01:00 Test Item Value Reference Range Interpretation Comments WHITE BLOOD CELL (test code = 7.73 x10 3/uL 4.5-11.0 N WBC) RED BLOOD CELL (test code = 3.47 x10 6/uL 3.54-5.02 L RBC) HEMOGLOBIN (test code = HGB) 12.4 g/dL 11.0-15.0 N HEMATOCRIT (test code = HCT) 37.8 % 33.0-45.0 N MEAN CELL VOLUME (test code = 108.9 fL 81.0-99.0 H MCV) MEAN CELL HGB (test code = MCH) 35.7 pg 27.0-33.0 H MEAN CELL HGB CONCETRATION 32.8 g/dL 33.0-37.0 L (test code = MCHC) RED CELL DISTRIBUTION WIDTH CV 13.9 % 11.5-14.5 N (test code = RDW) RED CELL DISTRIBUTION WIDTH SD 56.5 fL 37.0-54.0 H (test code = RDW-SD) PLATELET COUNT (test code = 528 x10 3/uL 150-400 H PLT) MEAN PLATELET VOLUME (test code 9.7 fL 7.0-9.0 H = MPV) NEUTROPHIL % (test code = NT%) 45.9 % 56.0-77.0 L IMMATURE GRANULOCYTE % (test 1.9 % 0.0-2.0 N code = IG%) LYMPHOCYTE % (test code = LY%) 35.7 % 14.0-32.0 H MONOCYTE % (test code = MO%) 14.7 % 4.8-9.0 H EOSINOPHIL % (test code = EO%) 0.9 % 0.3-3.7 N BASOPHIL % (test code = BA%) 0.9 % 0.0-2.0 N NUCLEATED RBC % (test code = 0.0 % 0-0 N NRBC%) NEUTROPHIL # (test code = NT#) 3.54 x10 3/uL 2.0-7.6 N IMMATURE GRANULOCYTE # (test 0.15 x10 3/uL 0.00-0.03 H code = IG#) LYMPHOCYTE # (test code = LY#) 2.76 x10 3/uL 1.0-3.8 N MONOCYTE # (test code = MO#) 1.14 x10 3/uL 0.1-0.8 H EOSINOPHIL # (test code = EO#) 0.07 x10 3/uL 0.0-0.2 N BASOPHIL # (test code = BA#) 0.07 x10 3/uL 0.0-0.2 N NUCLEATED RBC # (test code = 0.00 x10 3/uL 0.0-0.1 N NRBC#) MANUAL DIFF REQUIRED (test code NO = MDIFF) RBC [id number] 05:01:00 Test Item Value Reference Range Interpretation Comments ANISOCYTOSIS (test code = ANISO) BASIC METABOLIC [id number] 13:27:00 Test Item Value Reference Range Interpretation Comments SODIUM (test code = NA) 139 mEq/L 134-147 N POTASSIUM (test code = 3.3 mEq/L 3.4-5.0 L K) CHLORIDE (test code = 106 mEq/L 100-108 N CL) CARBON DIOXIDE (test 27 mEq/L 21-33 N code = CO2) ANION GAP (test code = 9 0-20 N GAP) GLUCOSE (test code = 101 mg/dL 70-110 N GLU) BLOOD UREA NITROGEN 5 mg/dL 7-18 L (test code = BUN) GLOMERULAR FILTRATION 145.9 110-120 H Units of measure = RATE (test code = GFR) ml/mi n/1.73 m2 CREATININE (test code = 0.5 mg/dL 0.6-1.3 L CREAT) CALCIUM (test code = 8.6 mg/dL 8.0-10.5 N CA) COMPREHENSIVE METABOLIC [id number] 13:45:00 Test Item Value Reference Range Interpretation Comments SODIUM (test code = NA) 137 mEq/L 134-147 N POTASSIUM (test code = 3.3 mEq/L 3.4-5.0 L K) CHLORIDE (test code = 103 mEq/L 100-108 N CL) CARBON DIOXIDE (test 28 mEq/L 21-33 N code = CO2) ANION GAP (test code = 9 0-20 N GAP) GLUCOSE (test code = 91 mg/dL 70-110 GLU) BLOOD UREA NITROGEN 4 mg/dL 7-18 L (test code = BUN) GLOMERULAR FILTRATION 188.7 110-120 H Units of measure = RATE (test code = GFR) ml/mi n/1.73 m2 CREATININE (test code = 0.4 mg/dL 0.6-1.3 L CREAT) TOTAL PROTEIN (test 6.5 g/dL 6.4-8.2 N code = PROT) ALBUMIN (test code = 2.50 g/dL 3.4-5.0 L ALB) CALCIUM (test code = 8.6 mg/dL 8.0-10.5 N CA) BILIRUBIN TOTAL (test 0.3 MG/DL <1.5 N code = BILT) SGOT/AST (test code = 20 IUnit/L 15-37 N AST) SGPT/ALT (test code = 24 IUnit/L 15-65 N ALT) ALKALINE PHOSPHATASE 100 IUnit/L 20-125 N TOTAL (test code = ALKP) [id number] 13:45:00 Test Item Value Reference Range Interpretation Comments AMYLASE (test code = OMKAR) 23 UNITS/L 25-115 L [id number] 13:45:00 Test Item Value Reference Range Interpretation Comments LIPASE (test code = LIP) 193 IUnit/L 73-393 COMPREHENSIVE METABOLIC [id number] 13:38:00 Test Item Value Reference Range Interpretation Comments SODIUM (test code = NA) 137 mEq/L 134-147 N POTASSIUM (test code = K) 3.3 mEq/L 3.4-5.0 L CHLORIDE (test code = CL) 103 mEq/L 100-108 N CARBON DIOXIDE (test code = CO2) 28 mEq/L 21-33 N ANION GAP (test code = GAP) 9 0-20 N GLUCOSE (test code = GLU) 91 mg/dL 70-110 BLOOD UREA NITROGEN (test code = 4 mg/dL 7-18 L BUN) GLOMERULAR FILTRATION RATE (test 110-120 code = GFR) CREATININE (test code = CREAT) mg/dL 0.6-1.3 TOTAL PROTEIN (test code = PROT) g/dL 6.4-8.2 ALBUMIN (test code = ALB) g/dL 3.4-5.0 CALCIUM (test code = CA) 8.6 mg/dL 8.0-10.5 N BILIRUBIN TOTAL (test code = BILT) MG/DL <1.5 SGOT/AST (test code = AST) IUnit/L 15-37 SGPT/ALT (test code = ALT) IUnit/L 15-65 ALKALINE PHOSPHATASE TOTAL (test IUnit/L 20-125 code = ALKP) [id number] 13:38:00 Test Item Value Reference Range Interpretation Comments AMYLASE (test code = OMKAR) UNITS/L 25-115 [id number] 13:38:00 Test Item Value Reference Range Interpretation Comments LIPASE (test code = LIP) 193 IUnit/L 73-393 CBC W/AUTO [id number] 13:31:00 Test Item Value Reference Range Interpretation Comments WHITE BLOOD CELL (test code = 6.47 x10 3/uL 4.5-11.0 N WBC) RED BLOOD CELL (test code = 3.45 x10 6/uL 3.54-5.02 L RBC) HEMOGLOBIN (test code = HGB) 12.6 g/dL 11.0-15.0 N HEMATOCRIT (test code = HCT) 37.2 % 33.0-45.0 N MEAN CELL VOLUME (test code = 107.8 fL 81.0-99.0 H MCV) MEAN CELL HGB (test code = MCH) 36.5 pg 27.0-33.0 H MEAN CELL HGB CONCETRATION 33.9 g/dL 33.0-37.0 N (test code = MCHC) RED CELL DISTRIBUTION WIDTH CV 13.8 % 11.5-14.5 N (test code = RDW) RED CELL DISTRIBUTION WIDTH SD 54.5 fL 37.0-54.0 H (test code = RDW-SD) PLATELET COUNT (test code = 415 x10 3/uL 150-400 H PLT) MEAN PLATELET VOLUME (test code 10.1 fL 7.0-9.0 H = MPV) NEUTROPHIL % (test code = NT%) 57.7 % 56.0-77.0 N IMMATURE GRANULOCYTE % (test 1.7 % 0.0-2.0 N code = IG%) LYMPHOCYTE % (test code = LY%) 22.7 % 14.0-32.0 N MONOCYTE % (test code = MO%) 15.9 % 4.8-9.0 H EOSINOPHIL % (test code = EO%) 1.1 % 0.3-3.7 N BASOPHIL % (test code = BA%) 0.9 % 0.0-2.0 N NUCLEATED RBC % (test code = 0.0 % 0-0 N NRBC%) NEUTROPHIL # (test code = NT#) 3.73 x10 3/uL 2.0-7.6 N IMMATURE GRANULOCYTE # (test 0.11 x10 3/uL 0.00-0.03 H code = IG#) LYMPHOCYTE # (test code = LY#) 1.47 x10 3/uL 1.0-3.8 N MONOCYTE # (test code = MO#) 1.03 x10 3/uL 0.1-0.8 H EOSINOPHIL # (test code = EO#) 0.07 x10 3/uL 0.0-0.2 N BASOPHIL # (test code = BA#) 0.06 x10 3/uL 0.0-0.2 N NUCLEATED RBC # (test code = 0.00 x10 3/uL 0.0-0.1 N NRBC#) MANUAL DIFF REQUIRED (test code NO = MDIFF) - XR FLUOROSCOPY 0-60 [id number] 10:26:00 FAX: Roney Calderón MD [phone] [place]: St: DIS Name: NNAMDI BARTH [facility] : 1990 Age/S: 28/F [address] [place] [address] Unit#: [id number] Loc: [facility] [place] [address] Phys: Roney Haynes MD Acct: [id number] Dis Date: Status: DIS IN PHONE #: [phone] Exam Date: 06/16/2019 1007 FAX #: [phone] Reason: Dobhoff tube placement adv. far into duodenum, EXAMS: CPT CODE: [id number] XR FLUOROSCOPY 0-60 MIN 12529 Study: - XR FLUOROSCOPY 0-60 MIN 06/16/2019 3:29 PM Dobbhoff tube placement under fluoroscopy guidance Patient Name: NNAMDI BARTH MR: [id number] DATE: 06/16/2019 3:29 PM : 1990; Age: 28 years y/o Female Ordering Physician: Roney Haynes MD Clinical Indication: Dobhoff tube placement adv. far into duodenum, pancreatit Patient was placed supine on the fluoroscopy table. U nder fluoroscopy guidance, Dobbhoff tube was advanced into the stomach. Tube was pushedfurther into the 3rd portion of the duodenum. Contrast injection was performed which showed opacification of duodenum. Tube was secured. Patient tolerated procedure well. There were no evident complication. Fluoroscopy time: 2.6 minutes Reference Air Kerma: 63.6 mGy IMPRESSION: Successful Dobbhoff tube placement under fluoroscopy guidance with tip within the 3rd portion of duodenum. SL: [id number] at 1026 Reported and signed by: Bridgett Da Silva D.O. CC: Roney Haynes MD Technologist: RT Javan(August) Trnscrd Date/Time/By: 06/16/2019 (8882) : By: [email or web address] Orig Print D/T: S: 06/16/2019 (8754) PAGE 1 Signed Report- XR FLUOROSCOPY 0-60 [id number] 10:26:00 FAX: Roney Calderón MD [phone] [place]: St: ADM Name: NNAMDI BARTH [facility] : 1990 Age/S: 28/F [address] [place] [address] Unit#: [id number] Loc: G.[address] [place] [address] Phys: Roney Haynes MD Acct: [id number] Dis Date: Status: ADM IN PHONE #: [phone] Exam Date: 06/16/2019 1007 FAX #: [phone] Reason: Dobhoff tube placement adv. far into duodenum, EXAMS: CPT CODE: [id number] XR FLUOROSCOPY 0-60 MIN 43307 Study: - XR FLUOROSCOPY 0-60 MIN 06/16/2019 3:29 PM Dobbhoff tube placement under fluoroscopy guidance Patient Name: NNAMDI BARTH MR: [id number] DATE: 06/16/2019 3:29 PM : 1990; Age: 28 years y/o Female Ordering Physician: Roney Haynes MD Clinical Indication: Dobhoff tube placement adv. far into duodenum, pancreatit Patient was placed supine on the fluoroscopy table. U nder fluoroscopy guidance, Dobbhoff tube was advanced into the stomach. Tube was pushedfurther into the 3rd portion of the duodenum. Contrast injection was performed which showed opacification of duodenum. Tube was secured. Patient tolerated procedure well. There were no evident complication. Fluoroscopy time: 2.6 minutes Reference Air Kerma: 63.6 mGy IMPRESSION: Successful Dobbhoff tube placement under fluoroscopy guidance with tip within the 3rd portion of duodenum. SL: [id number] at 1026 Reported and signed by: Bridgett Da Silva D.O. CC: Roney Haynes MD Technologist: RT Javan(R) Trnscrd Date/Time/By: 06/16/2019 (6206) : By: [email or web address] Orig Print D/T: S: 06/16/2019 (6295) PAGE 1 Signed Report- XR FLUOROSCOPY 0-60 [id number] 10:26:00 FAX: Roney Calderón MD [phone] [place]: St: DIS Name: NNAMDI BARTH [facility] [place] : 1990 Age/S: 28/F [address] [place] [address] Unit#: [id number] Loc: [address] [place] [address] Phys: Roney Haynes MD Acct: [id number] Dis Date: [id number] Status: DIS IN PHONE #: [phone] Exam Date: 06/16/2019 1007 FAX #: [phone] Reason: Dobhoff tube placement adv. far into duodenum, EXAMS: CPT CODE: [id number] XR FLUOROSCOPY 0-60 MIN 29551 Study: - XR FLUOROSCOPY 0-60 MIN 06/16/2019 3:29 PM Dobbhoff tube placement under fluoroscopy guidance Patient Name: NNAMDI BARTH MR: [id number] DATE: 06/16/2019 3:29 PM : 1990; Age: 28 years y/o Female Ordering Physician: Roney Haynes MD Clinical Indication: Dobhoff tube placement adv. far into duodenum, pancreatit Patient was placed supine on the fluoroscopy table. U nder fluoroscopy guidance, Dobbhoff tube was advanced into the stomach. Tube was pushedfurther into the 3rd portion of the duodenum. Contrast injection was performed which showed opacification of duodenum. Tube was secured. Patient tolerated procedure well. There were no evident complication. Fluoroscopy time: 2.6 minutes Reference Air Kerma: 63.6 mGy IMPRESSION: Successful Dobbhoff tube placement under fluoroscopy guidance with tip within the 3rd portion of duodenum. SL: [id number] at 1026 Reported and signed by: Bridgett Da iSlva D.O. CC: Roney Haynes MD Technologist: RT Javan(R) Trnscrd Date/Time/By: 06/16/2019 (1026) : By: [email or web address] Orig Print D/T: S: 06/16/2019 (3226) PAGE 1 Signed ReportCBC W/AUTO [id number] 12:44:00 Test Item Value Reference Range Interpretation Comments WHITE BLOOD CELL (test code = 6.45 x10 3/uL 4.5-11.0 N WBC) RED BLOOD CELL (test code = 3.37 x10 6/uL 3.54-5.02 L RBC) HEMOGLOBIN (test code = HGB) 12.2 g/dL 11.0-15.0 N HEMATOCRIT (test code = HCT) 37.0 % 33.0-45.0 N MEAN CELL VOLUME (test code = 109.8 fL 81.0-99.0 H MCV) MEAN CELL HGB (test code = MCH) 36.2 pg 27.0-33.0 H MEAN CELL HGB CONCETRATION 33.0 g/dL 33.0-37.0 N (test code = MCHC) RED CELL DISTRIBUTION WIDTH CV 13.5 % 11.5-14.5 N (test code = RDW) RED CELL DISTRIBUTION WIDTH SD 54.9 fL 37.0-54.0 H (test code = RDW-SD) PLATELET COUNT (test code = 312 x10 3/uL 150-400 N PLT) MEAN PLATELET VOLUME (test code 11.0 fL 7.0-9.0 H = MPV) MANUAL DIFF REQUIRED (test code YES = MDIFF) WBC [id number] 12:44:00 Test Item Value Reference Range Interpretation Comments SEGMENTED NEUTROPHILS (test 39 % 37-69 N code = SEG) BAND NEUTROPHIL (test code 4.0 % 0.0-10.0 N = BAND) LYMPHOCYTE (test code = 40 % 23-55 N LYMPH) MONOCYTE (test code = MON) 14 % 0-10 H EOSINOPHIL (test code = 1 % 0.0-4.0 N EOS) BASOPHIL (test code = BASO) 1 % 0.0-2.0 N METAMYELOCYTE (test code = 1.0 % 0.0-0.0 H META) POLYCHROMASIA (test code = 1+ POLC) POIKILOCYTOSIS (test code = SLIGHT POIK) ANISOCYTOSIS (test code = 1+ ANISO) MACROCYTOSIS (test code = 2+ MACR) PLATELET ESTIMATE (test Adequate THOUSAND ADEQUATE code = PLTEST) PLATELET MORPHOLOGY (test LARGE PLATELETS code = PLTMORPH) CBC W/AUTO [id number] 11:13:00 Test Item Value Reference Range Interpretation Comments WHITE BLOOD CELL (test code = 6.45 x10 3/uL 4.5-11.0 N WBC) RED BLOOD CELL (test code = 3.37 x10 6/uL 3.54-5.02 L RBC) HEMOGLOBIN (test code = HGB) 12.2 g/dL 11.0-15.0 N HEMATOCRIT (test code = HCT) 37.0 % 33.0-45.0 N MEAN CELL VOLUME (test code = 109.8 fL 81.0-99.0 H MCV) MEAN CELL HGB (test code = MCH) 36.2 pg 27.0-33.0 H MEAN CELL HGB CONCETRATION 33.0 g/dL 33.0-37.0 N (test code = MCHC) RED CELL DISTRIBUTION WIDTH CV 13.5 % 11.5-14.5 N (test code = RDW) RED CELL DISTRIBUTION WIDTH SD 54.9 fL 37.0-54.0 H (test code = RDW-SD) PLATELET COUNT (test code = 312 x10 3/uL 150-400 N PLT) MEAN PLATELET VOLUME (test code 11.0 fL 7.0-9.0 H = MPV) MANUAL DIFF REQUIRED (test code YES = MDIFF) WBC [id number] 11:13:00 Test Item Value Reference Range Interpretation Comments ANISOCYTOSIS (test code = ANISO) PLATELET ESTIMATE (test code = THOUSAND ADEQUATE PLTEST) CBC W/AUTO [id number] 11:13:00 Test Item Value Reference Range Interpretation Comments WHITE BLOOD CELL (test code = 6.45 x10 3/uL 4.5-11.0 N WBC) RED BLOOD CELL (test code = 3.37 x10 6/uL 3.54-5.02 L RBC) HEMOGLOBIN (test code = HGB) 12.2 g/dL 11.0-15.0 N HEMATOCRIT (test code = HCT) 37.0 % 33.0-45.0 N MEAN CELL VOLUME (test code = 109.8 fL 81.0-99.0 H MCV) MEAN CELL HGB (test code = MCH) 36.2 pg 27.0-33.0 H MEAN CELL HGB CONCETRATION 33.0 g/dL 33.0-37.0 N (test code = MCHC) RED CELL DISTRIBUTION WIDTH CV 13.5 % 11.5-14.5 N (test code = RDW) RED CELL DISTRIBUTION WIDTH SD 54.9 fL 37.0-54.0 H (test code = RDW-SD) PLATELET COUNT (test code = 312 x10 3/uL 150-400 N PLT) MEAN PLATELET VOLUME (test code 11.0 fL 7.0-9.0 H = MPV) MANUAL DIFF REQUIRED (test code YES = MDIFF) WBC [id number] 11:13:00 Test Item Value Reference Range Interpretation Comments ANISOCYTOSIS (test code = ANISO) PLATELET ESTIMATE (test code = THOUSAND ADEQUATE PLTEST) BASIC METABOLIC [id number] 07:38:00 Test Item Value Reference Range Interpretation Comments SODIUM (test code = NA) 139 mEq/L 134-147 N POTASSIUM (test code = 3.1 mEq/L 3.4-5.0 L K) CHLORIDE (test code = 103 mEq/L 100-108 N CL) CARBON DIOXIDE (test 29 mEq/L 21-33 N code = CO2) ANION GAP (test code = 10 0-20 N GAP) GLUCOSE (test code = 71 mg/dL 70-110 N GLU) BLOOD UREA NITROGEN 4 mg/dL 7-18 L (test code = BUN) GLOMERULAR FILTRATION 188.7 110-120 H Units of measure = RATE (test code = GFR) ml/mi n/1.73 m2 CREATININE (test code = 0.4 mg/dL 0.6-1.3 L CREAT) CALCIUM (test code = 8.5 mg/dL 8.0-10.5 N CA) CBC W/AUTO [id number] 06:06:00 Test Item Value Reference Range Interpretation Comments WHITE BLOOD CELL (test code = 6.45 x10 3/uL 4.5-11.0 N WBC) RED BLOOD CELL (test code = 3.37 x10 6/uL 3.54-5.02 L RBC) HEMOGLOBIN (test code = HGB) 12.2 g/dL 11.0-15.0 N HEMATOCRIT (test code = HCT) 37.0 % 33.0-45.0 N MEAN CELL VOLUME (test code = 109.8 fL 81.0-99.0 H MCV) MEAN CELL HGB (test code = MCH) 36.2 pg 27.0-33.0 H MEAN CELL HGB CONCETRATION 33.0 g/dL 33.0-37.0 N (test code = MCHC) RED CELL DISTRIBUTION WIDTH CV 13.5 % 11.5-14.5 N (test code = RDW) RED CELL DISTRIBUTION WIDTH SD 54.9 fL 37.0-54.0 H (test code = RDW-SD) PLATELET COUNT (test code = 312 x10 3/uL 150-400 N PLT) MEAN PLATELET VOLUME (test code 11.0 fL 7.0-9.0 H = MPV) NEUTROPHIL % (test code = NT%) % 56.0-77.0 LYMPHOCYTE % (test code = LY%) % 14.0-32.0 NEUTROPHIL # (test code = NT#) x10 3/uL 2.0-7.6 LYMPHOCYTE # (test code = LY#) x10 3/uL 1.0-3.8 MANUAL DIFF REQUIRED (test code = MDIFF) - CT ABD PELVIS [id number] 17:09:00 Name: NNAMDI BARTH [facility] : 1990 Age/S: 28 / F [address] [place] [address] Unit #: [id number] Loc: [facility] [id number] Phys: Luis Marino MD Acct: [id number] Dis Date: Status: DIS IN PHONE #: [phone] Exam Date: 06/14/2019 1413 FAX #: [phone] Reason: F/U ACUTE PANCREATITIS; INCREASED PAIN EXAMS: CPTCODE: [id number] CT ABD PELVIS W/CONT 37571 CT SCAN OF THE ABDOMEN AND PELVIS WITH CONTRAST: HISTORY: Increasing epigastric pain. Known pancreatitis. COMPARISON EXAM(S): Previous similar study of 06/08/2019. NABOR HNIQUE: Axial images were obtained of the abdomen and pelvis from the domes of the diaphragm to the symphysis pubis following intravenous injection of 100 ml's Isovue and oral administration of 10 ml's Gastrografin diluted with water. Coronal and sagittal reconstructions were generated. DOSE: CT imaging performed at this location utilizes radiation dose optimization technique which includes one or more of the followin) Automated exposure control; 2) Adjustment of the mA and/or kV according to patient's size; 3) Use of iterative reconstruction techniques. DLP (mGy-cm): 409 FINDINGS: Since the prior examination, a small focal fluid collection has developed at the pancreatic tail. There is now a disruption of the enhancing parenchyma at the tail of the pancreas. The majority of the pancreas continues to enhance normally. This fluid collection is minimally complex, and measures up to 2.5 cm. Edema extends superiorly into the lesser sac. No evidence of dominant, large, drainable fluid collection. Mild edema continues to be present in the anterior pararenal space. On the prior examination, the full length of the splenic vein could be identified. The lumen of the splenic vein, as it courses just posterior to the tail of the pancreas, is now not well opacified. Though this may be secondary to extrinsic edema and venous compression, thrombosis since 06/08/2019 is possible. The lung bases are clear. No focal lesions identified in the liver, spleen, adrenal glands or kidneys. The gallbladder is partially collapsed. The appendix is well seen and normal. No evidence of bowel dilatation. No freeair or free fluid. The colonic wall thickening previously described has resolved. No retroperitoneal or pelvic adenopathy. Bone windows reveal chronic degenerative changes in the inferior thoracic vertebral bodies with Schmorl's node formation at T10 and T11. PAGE 1 Signed Report (CONTINUED) Name: NNAMDI BARTH [facility] : 1990 Age/S: 28 / F [address] [place] [address] Unit #: [id number] Loc: [place] [address] Phys: Luis Marino MD Acct: [id number] Dis Date: Status: DIS IN PHONE #: [phone] Exam Date: 06/14/2019 1413 FAX #: [phone] Reason: F/U ACUTE PANCREATITIS; INCREASED PAIN EXAMS: CPT CODE: [id number] CT ABD PELVIS W/CONT 00830 <Continued> IMPRESSION: 1. Progression of changes of pancreatitis about the tail of the pancreas compared to 06/08/2019. 2. Interval development of a 2.5 cm complex fluid collection. This likely represents some necrosis of pancreatic parenchyma and possible early pseudocyst formation. No dominant, drainable fluid collections identified at this time. 3. Nonvisualization of the proximal splenic vein. This finding has developed since 06/08/2019. Extrinsic compression of the vessel and splenic vein thrombosis are both possible. 4. Persistent, mild to moderate edema in the anterior perirenal space about the tail of the pancreas. 5. The majority of the pancreas continues to enhance normally. 6. Resolution of colonic wall thickening since 06/08/2019. 7. Hepatic steatosis. 8. Otherwise stable exam. SL:01 at 1709 Reported and signed by: Praneeth Douglas M.D. CC: Technologist:RT Wojciech(R) CTDI: DLP: Trnscb Date/Time: 06/14/2019 (1708) [facility] Orig Print D/T: S: 06/14/2019 (4455) PAGE 2 Signed Report- CT ABD PELVIS W/[id number] 17:09:00 Name: NNAMDI BARTH [facility] : 1990 Age/S: 28 / F [address] [place] [address] Unit #: [id number] Loc: [facility] [id number] Phys: Luis Marino MD Acct: [id number] Dis Date: Status: ADM IN PHONE #: [phone] Exam Date: 06/14/2019 1413 FAX #: [phone] Reason: F/U ACUTE PANCREATITIS; INCREASED PAIN EXAMS: CPTCODE: [id number] CT ABD PELVIS W/CONT 03902 CT SCAN OF THE ABDOMEN AND PELVIS WITH CONTRAST: HISTORY: Increasing epigastric pain. Known pancreatitis. COMPARISON EXAM(S): Previous similar study of 06/08/2019. NABOR HNIQUE: Axial images were obtained of the abdomen and pelvis from the domes of the diaphragm to the symphysis pubis following intravenous injection of 100 ml's Isovue and oral administration of 10 ml's Gastrografin diluted with water. Coronal and sagittal reconstructions were generated. DOSE: CT imaging performed at this location utilizes radiation dose optimization technique which includes one or more of the followin) Automated exposure control; 2) Adjustment of the mA and/or kV according to patient's size; 3) Use of iterative reconstruction techniques. DLP (mGy-cm): 409 FINDINGS: Since the prior examination, a small focal fluid collection has developed at the pancreatic tail. There is now a disruption of the enhancing parenchyma at the tail of the pancreas. The majority of the pancreas continues to enhance normally. This fluid collection is minimally complex, and measures up to 2.5 cm. Edema extends superiorly into the lesser sac. No evidence of dominant, large, drainable fluid collection. Mild edema continues to be present in the anterior pararenal space. On the prior examination, the full length of the splenic vein could be identified. The lumen of the splenic vein, as it courses just posterior to the tail of the pancreas, is now not well opacified. Though this may be secondary to extrinsic edema and venous compression, thrombosis since 06/08/2019 is possible. The lung bases are clear. No focal lesions identified in the liver, spleen, adrenal glands or kidneys. The gallbladder is partially collapsed. The appendix is well seen and normal. No evidence of bowel dilatation. No freeair or free fluid. The colonic wall thickening previously described has resolved. No retroperitoneal or pelvic adenopathy. Bone windows reveal chronic degenerative changes in the inferior thoracic vertebral bodies with Schmorl's node formation at T10 and T11. PAGE 1 Signed Report (CONTINUED) Name: NNAMDI BARHT [facility] : 1990 Age/S: 28 / F [address] [place] [address] Unit #: [id number] Loc: [place] [address] Phys: Luis Marino MD Acct: [id number] Dis Date: Status: ADM IN PHONE #: [phone] Exam Date: 06/14/2019 1413 FAX #: [phone] Reason: F/U ACUTE PANCREATITIS; INCREASED PAIN EXAMS: CPT CODE: [id number] CT ABD PELVIS W/CONT 32169 <Continued> IMPRESSION: 1. Progression of changes of pancreatitis about the tail of the pancreas compared to 06/08/2019. 2. Interval development of a 2.5 cm complex fluid collection. This likely represents some necrosis of pancreatic parenchyma and possible early pseudocyst formation. No dominant, drainable fluid collections identified at this time. 3. Nonvisualization of the proximal splenic vein. This finding has developed since 06/08/2019. Extrinsic compression of the vessel and splenic vein thrombosis are both possible. 4. Persistent, mild to moderate edema in the anterior perirenal space about the tail of the pancreas. 5. The majority of the pancreas continues to enhance normally. 6. Resolution of colonic wall thickening since 06/08/2019. 7. Hepatic steatosis. 8. Otherwise stable exam. SL:01 at 1709 Reported and signed by: Praneeth Douglas M.D. CC: Technologist:Omid Ashby RT(R) CTDI: DLP: Trnscb Date/Time: 06/14/2019 (170) [facility].VGE/[facility].VGE Orig Print D/T: S: 06/14/2019 (6332) PAGE 2 Signed Report- CT ABD PELVIS [id number] 17:09:00 Name: NNAMDI BARTH [facility] : 1990 Age/S: 28 / F [address] [place], [place] [address] Unit #: [id number] Loc: [facility] [id number] Phys: Luis Marino MD Acct: [id number] Dis Date: 07/01/2019 Status: DIS IN PHONE #: [phone] Exam Date: 06/14/2019 1413 FAX #: [phone] Reason: F/U ACUTE PANCREATITIS; INCREASED PAIN EXAMS: CPTCODE: [id number] CT ABD PELVIS W/CONT 15043 CT SCAN OF THE ABDOMEN AND PELVIS WITH CONTRAST: HISTORY: Increasing epigastric pain. Known pancreatitis. COMPARISON EXAM(S): Previous similar study of 06/08/2019. NABOR HNIQUE: Axial images were obtained of the abdomen and pelvis from the domes of the diaphragm to the symphysis pubis following intravenous injection of 100 ml's Isovue and oral administration of 10 ml's Gastrografin diluted with water. Coronal and sagittal reconstructions were generated. DOSE: CT imaging performed at this location utilizes radiation dose optimization technique which includes one or more of the followin) Automated exposure control; 2) Adjustment of the mA and/or kV according to patient's size; 3) Use of iterative reconstruction techniques. DLP (mGy-cm): 409 FINDINGS: Since the prior examination, a small focal fluid collection has developed at the pancreatic tail. There is now a disruption of the enhancing parenchyma at the tail of the pancreas. The majority of the pancreas continues to enhance normally. This fluid collection is minimally complex, and measures up to 2.5 cm. Edema extends superiorly into the lesser sac. No evidence of dominant, large, drainable fluid collection. Mild edema continues to be present in the anterior pararenal space. On the prior examination, the full length of the splenic vein could be identified. The lumen of the splenic vein, as it courses just posterior to the tail of the pancreas, is now not well opacified. Though this may be secondary to extrinsic edema and venous compression, thrombosis since 06/08/2019 is possible. The lung bases are clear. No focal lesions identified in the liver, spleen, adrenal glands or kidneys. The gallbladder is partially collapsed. The appendix is well seen and normal. No evidence of bowel dilatation. No freeair or free fluid. The colonic wall thickening previously described has resolved. No retroperitoneal or pelvic adenopathy. Bone windows reveal chronic degenerative changes in the inferior thoracic vertebral bodies with Schmorl's node formation at T10 and T11. PAGE 1 Signed Report (CONTINUED) Name: NNAMDI BARTH [facility] : 1990 Age/S: 28 / F [address] [place] [address] Unit #: [id number] Loc: [place] [address] Phys: Luis Marino MD Acct: [id number] Dis Date: 07/01/2019 Status: DIS IN PHONE #: [phone] Exam Date: 06/14/2019 1413 FAX #: [phone] Reason: F/U ACUTE PANCREATITIS; INCREASED PAIN EXAMS: CPT CODE: [id number] CT ABD PELVIS W/CONT 50177 <Continued> IMPRESSION: 1. Progression of changes of pancreatitis about the tail of the pancreas compared to 06/08/2019. 2. Interval development of a 2.5 cm complex fluid collection. This likely represents some necrosis of pancreatic parenchyma and possible early pseudocyst formation. No dominant, drainable fluid collections identified at this time. 3. Nonvisualization of the proximal splenic vein. This finding has developed since 06/08/2019. Extrinsic compression of the vessel and splenic vein thrombosis are both possible. 4. Persistent, mild to moderate edema in the anterior perirenal space about the tail of the pancreas. 5. The majority of the pancreas continues to enhance normally. 6. Resolution of colonic wall thickening since 06/08/2019. 7. Hepatic steatosis. 8. Otherwise stable exam. SL:01 at 1709 Reported and signed by: Praneeth Douglas M.D. CC: Technologist:RT Wojciech(R) CTDI: DLP: Trnscb Date/Time: 06/14/2019 (1709) [facility].VGE/[facility].VGE Orig Print D/T: S: 06/14/2019 (7919) PAGE 2 Signed ReportCBC W/AUTO [id number] 14:47:00 Test Item Value Reference Range Interpretation Comments WHITE BLOOD CELL 6.51 x10 3/uL 4.5-11.0 N (test code = WBC) RED BLOOD CELL (test 3.42 x10 6/uL 3.54-5.02 L code = RBC) HEMOGLOBIN (test code 12.5 g/dL 11.0-15.0 N = HGB) HEMATOCRIT (test code 37.5 % 33.0-45.0 N = HCT) MEAN CELL VOLUME 109.6 fL 81.0-99.0 H (test code = MCV) MEAN CELL HGB (test 36.5 pg 27.0-33.0 H code = MCH) MEAN CELL HGB 33.3 g/dL 33.0-37.0 N CONCETRATION (test code = MCHC) RED CELL DISTRIBUTION 13.2 % 11.5-14.5 N WIDTH CV (test code = RDW) RED CELL DISTRIBUTION 54.4 fL 37.0-54.0 H WIDTH SD (test code = RDW-SD) PLATELET COUNT (test 252 x10 3/uL 150-400 code = PLT) MEAN PLATELET VOLUME 9.9 fL 7.0-9.0 H (test code = MPV) NEUTROPHIL % (test 47.0 % 56.0-77.0 L code = NT%) IMMATURE GRANULOCYTE 1.1 % 0.0-2.0 N % (test code = IG%) LYMPHOCYTE % (test 29.3 % 14.0-32.0 N code = LY%) MONOCYTE % (test code 20.3 % 4.8-9.0 H = MO%) EOSINOPHIL % (test 1.2 % 0.3-3.7 N code = EO%) BASOPHIL % (test code 1.1 % 0.0-2.0 N = BA%) NUCLEATED RBC % (test 0.0 % 0-0 N code = NRBC%) NEUTROPHIL # (test 3.06 x10 3/uL 2.0-7.6 N code = NT#) IMMATURE GRANULOCYTE 0.07 x10 3/uL 0.00-0.03 H # (test code = IG#) LYMPHOCYTE # (test 1.91 x10 3/uL 1.0-3.8 N code = LY#) MONOCYTE # (test code 1.32 x10 3/uL 0.1-0.8 H = MO#) EOSINOPHIL # (test 0.08 x10 3/uL 0.0-0.2 N code = EO#) BASOPHIL # (test code 0.07 x10 3/uL 0.0-0.2 N = BA#) NUCLEATED RBC # (test 0.00 x10 3/uL 0.0-0.1 N code = NRBC#) MANUAL DIFF REQUIRED NO SLIDE August SIERRA (test code = DAYANNA) CONSISTE NT WITH AUTO DIFF. - XR CHEST 1 [id number] 12:41:00 [place]: St: DIS Name: NNAMDI BARTH [facility] : 1990 Age/S: 28/F [address] [place] [address] Unit#: [id number] Loc: [place] [address] Phys: Luis Marino MD Acct: [id number] Dis Date: Status: DIS IN PHONE #: [phone] Exam Date: 06/14/2019 1233 FAX #: [phone] Reason: SOB EXAMS: CPT CODE: [id number] XR CHEST 1 V 36535 Portable chest performed June 14, 2019 1225 hours. COMPARISON: None. CLINICAL HISTORY: SOB. DISCUSSION: Single portable chest is submitted. Lungs are clear. Cardiothymic mediastinal silhouette and osseous structures are normal. IMPRESSION: Normal one view chest x-ray. at 1241 Reported and signedby: Gina Haley M.D. CC: Technologist: SMITH Epps) Trnscrd Date/Time/By: 06/14/2019 (9837) : By: VonnieG Orig Print D/T: S: 06/14/2019 (1947) PAGE 1 Signed Report- XR CHEST 1 [id number] 12:41:00 [place]: St: ADM Name: NNAMDI BARTH [facility] : 1990 Age/S: 28/F [address] [place] [address] Unit#: [id number] Loc: G[address] [place] [address] Phys: Luis Marino MD Acct: [id number] Dis Date: Status: ADM IN PHONE #: [phone] Exam Date: 06/14/2019 1235 FAX #: [phone] Reason: SOB EXAMS: CPT CODE: [id number] XR CHEST 1 V 66947 Portable chest performed June 14, 2019 1225 hours. COMPARISON: None. CLINICAL HISTORY: SOB. DISCUSSION: Single portable chest is submitted. Lungs are clear. Cardiothymic mediastinal silhouette and osseous structures are normal. IMPRESSION: Normal one view chest x-ray. at 1241 Reported and signedby: Gina Haley M.D. CC: Technologist: RT Mich(R) Trnscrd Date/Time/By: 06/14/2019 (5181) : By: Kristina Orig Print D/T: S: 06/14/2019 (5977) PAGE 1 Signed Report- XR CHEST 1 [id number] 12:41:00 [place]: St: DIS Name: NNAMDI BARTH [facility] : 1990 Age/S: 28/F [address] [place] [address] Unit#: [id number] Loc: G.[address] [place] [address] Phys: Luis Marino MD Acct: [id number] Dis Date: [id number] Status: DIS IN PHONE #: [phone] Exam Date: 06/14/2019 1235 FAX #: [phone] Reason: SOB EXAMS: CPT CODE: [id number] XR CHEST 1 V 65490 Portable chest performed June 14, 2019 1225 hours. COMPARISON: None. CLINICAL HISTORY: SOB. DISCUSSION: Single portable chest is submitted. Lungs are clear. Cardiothymic mediastinal silhouette and osseous structures are normal. IMPRESSION: Normal one view chest x-ray. at 1241 Reported and signedby: Gina Haley M.D. CC: Technologist: RT Mich(R) Trnscrd Date/Time/By: 06/14/2019 (7221) : By: Kristina Orig Print D/T: S: 06/14/2019 (4205) PAGE 1 Signed ReportCOMPREHENSIVE METABOLIC [id number] 12:20:00 Test Item Value Reference Range Interpretation Comments SODIUM (test code = NA) 136 mEq/L 134-147 N POTASSIUM (test code = 3.6 mEq/L 3.4-5.0 N K) CHLORIDE (test code = 102 mEq/L 100-108 N CL) CARBON DIOXIDE (test 28 mEq/L 21-33 N code = CO2) ANION GAP (test code = 10 0-20 N GAP) GLUCOSE (test code = 77 mg/dL 70-110 N GLU) BLOOD UREA NITROGEN 3 mg/dL 7-18 L (test code = BUN) GLOMERULAR FILTRATION 188.7 110-120 H Units of measure = RATE (test code = GFR) ml/mi n/1.73 m2 CREATININE (test code = 0.4 mg/dL 0.6-1.3 L CREAT) TOTAL PROTEIN (test 6.4 g/dL 6.4-8.2 N code = PROT) ALBUMIN (test code = 2.50 g/dL 3.4-5.0 L ALB) CALCIUM (test code = 8.5 mg/dL 8.0-10.5 N CA) BILIRUBIN TOTAL (test 0.4 MG/DL <1.5 N code = BILT) SGOT/AST (test code = 39 IUnit/L 15-37 H AST) SGPT/ALT (test code = 42 IUnit/L 15-65 N ALT) ALKALINE PHOSPHATASE 130 IUnit/L 20-125 H TOTAL (test code = ALKP) [id number] 12:20:00 Test Item Value Reference Range Interpretation Comments AMYLASE (test code = OMKAR) 32 UNITS/L 25-115 N [id number] 12:20:00 Test Item Value Reference Range Interpretation Comments LIPASE (test code = LIP) 402 IUnit/L 73-393 H CBC W/AUTO [id number] 12:18:00 Test Item Value Reference Range Interpretation Comments WHITE BLOOD CELL (test code = 6.51 x10 3/uL 4.5-11.0 N WBC) RED BLOOD CELL (test code = 3.42 x10 6/uL 3.54-5.02 L RBC) HEMOGLOBIN (test code = HGB) 12.5 g/dL 11.0-15.0 N HEMATOCRIT (test code = HCT) 37.5 % 33.0-45.0 N MEAN CELL VOLUME (test code = 109.6 fL 81.0-99.0 H MCV) MEAN CELL HGB (test code = MCH) 36.5 pg 27.0-33.0 H MEAN CELL HGB CONCETRATION 33.3 g/dL 33.0-37.0 N (test code = MCHC) RED CELL DISTRIBUTION WIDTH CV 13.2 % 11.5-14.5 N (test code = RDW) RED CELL DISTRIBUTION WIDTH SD 54.4 fL 37.0-54.0 H (test code = RDW-SD) PLATELET COUNT (test code = 252 x10 3/uL 150-400 PLT) MEAN PLATELET VOLUME (test code 9.9 fL 7.0-9.0 H = MPV) NEUTROPHIL % (test code = NT%) % 56.0-77.0 LYMPHOCYTE % (test code = LY%) % 14.0-32.0 NEUTROPHIL # (test code = NT#) x10 3/uL 2.0-7.6 LYMPHOCYTE # (test code = LY#) x10 3/uL 1.0-3.8 MANUAL DIFF REQUIRED (test code = MDIFF) BASIC METABOLIC [id number] 03:18:00 Test Item Value Reference Range Interpretation Comments SODIUM (test code = NA) 137 mEq/L 134-147 N POTASSIUM (test code = 3.6 mEq/L 3.4-5.0 N K) CHLORIDE (test code = 103 mEq/L 100-108 N CL) CARBON DIOXIDE (test 28 mEq/L 21-33 N code = CO2) ANION GAP (test code = 10 0-20 N GAP) GLUCOSE (test code = 92 mg/dL 70-110 N GLU) BLOOD UREA NITROGEN 3 mg/dL 7-18 L (test code = BUN) GLOMERULAR FILTRATION 263.0 110-120 H Units of measure = RATE (test code = GFR) ml/mi n/1.73 m2 CREATININE (test code = 0.3 mg/dL 0.6-1.3 L CREAT) CALCIUM (test code = 7.7 mg/dL 8.0-10.5 L CA) CBC W/AUTO [id number] 03:07:00 Test Item Value Reference Range Interpretation Comments WHITE BLOOD CELL (test code = 7.34 x10 3/uL 4.5-11.0 N WBC) RED BLOOD CELL (test code = 3.32 x10 6/uL 3.54-5.02 L RBC) HEMOGLOBIN (test code = HGB) 12.1 g/dL 11.0-15.0 N HEMATOCRIT (test code = HCT) 36.5 % 33.0-45.0 N MEAN CELL VOLUME (test code = 109.9 fL 81.0-99.0 H MCV) MEAN CELL HGB (test code = MCH) 36.4 pg 27.0-33.0 H MEAN CELL HGB CONCETRATION 33.2 g/dL 33.0-37.0 N (test code = MCHC) RED CELL DISTRIBUTION WIDTH CV 13.1 % 11.5-14.5 N (test code = RDW) RED CELL DISTRIBUTION WIDTH SD 53.0 fL 37.0-54.0 N (test code = RDW-SD) PLATELET COUNT (test code = 154 x10 3/uL 150-400 PLT) MEAN PLATELET VOLUME (test code 10.3 fL 7.0-9.0 H = MPV) NEUTROPHIL % (test code = NT%) 55.7 % 56.0-77.0 L IMMATURE GRANULOCYTE % (test 0.8 % 0.0-2.0 N code = IG%) LYMPHOCYTE % (test code = LY%) 24.4 % 14.0-32.0 N MONOCYTE % (test code = MO%) 16.8 % 4.8-9.0 H EOSINOPHIL % (test code = EO%) 1.6 % 0.3-3.7 N BASOPHIL % (test code = BA%) 0.7 % 0.0-2.0 N NUCLEATED RBC % (test code = 0.0 % 0-0 N NRBC%) NEUTROPHIL # (test code = NT#) 4.09 x10 3/uL 2.0-7.6 N IMMATURE GRANULOCYTE # (test 0.06 x10 3/uL 0.00-0.03 H code = IG#) LYMPHOCYTE # (test code = LY#) 1.79 x10 3/uL 1.0-3.8 N MONOCYTE # (test code = MO#) 1.23 x10 3/uL 0.1-0.8 H EOSINOPHIL # (test code = EO#) 0.12 x10 3/uL 0.0-0.2 N BASOPHIL # (test code = BA#) 0.05 x10 3/uL 0.0-0.2 N NUCLEATED RBC # (test code = 0.00 x10 3/uL 0.0-0.1 N NRBC#) MANUAL DIFF REQUIRED (test code NO = MDIFF) BASIC METABOLIC [id number] 05:03:00 Test Item Value Reference Range Interpretation Comments SODIUM (test code = NA) 136 mEq/L 134-147 N POTASSIUM (test code = 3.4 mEq/L 3.4-5.0 N K) CHLORIDE (test code = 101 mEq/L 100-108 N CL) CARBON DIOXIDE (test 26 mEq/L 21-33 N code = CO2) ANION GAP (test code = 12 0-20 N GAP) GLUCOSE (test code = 76 mg/dL 70-110 N GLU) BLOOD UREA NITROGEN 4 mg/dL 7-18 L (test code = BUN) GLOMERULAR FILTRATION 263.0 110-120 H Units of measure = RATE (test code = GFR) ml/mi n/1.73 m2 CREATININE (test code = 0.3 mg/dL 0.6-1.3 L CREAT) CALCIUM (test code = 7.2 mg/dL 8.0-10.5 L CA) CBC W/AUTO [id number] 04:24:00 Test Item Value Reference Range Interpretation Comments WHITE BLOOD CELL (test code = 9.34 x10 3/uL 4.5-11.0 N WBC) RED BLOOD CELL (test code = 3.30 x10 6/uL 3.54-5.02 L RBC) HEMOGLOBIN (test code = HGB) 12.1 g/dL 11.0-15.0 N HEMATOCRIT (test code = HCT) 35.7 % 33.0-45.0 N MEAN CELL VOLUME (test code = 108.2 fL 81.0-99.0 H MCV) MEAN CELL HGB (test code = MCH) 36.7 pg 27.0-33.0 H MEAN CELL HGB CONCETRATION 33.9 g/dL 33.0-37.0 N (test code = MCHC) RED CELL DISTRIBUTION WIDTH CV 13.0 % 11.5-14.5 N (test code = RDW) RED CELL DISTRIBUTION WIDTH SD 52.1 fL 37.0-54.0 N (test code = RDW-SD) PLATELET COUNT (test code = 102 x10 3/uL 150-400 L PLT) IMMATURE PLATELET FRACTION 7.0 % 0.9-11.2 N (test code = IPF) MEAN PLATELET VOLUME (test code 11.3 fL 7.0-9.0 H = MPV) NEUTROPHIL % (test code = NT%) 66.7 % 56.0-77.0 N IMMATURE GRANULOCYTE % (test 0.6 % 0.0-2.0 N code = IG%) LYMPHOCYTE % (test code = LY%) 19.5 % 14.0-32.0 N MONOCYTE % (test code = MO%) 10.8 % 4.8-9.0 H EOSINOPHIL % (test code = EO%) 1.8 % 0.3-3.7 N BASOPHIL % (test code = BA%) 0.6 % 0.0-2.0 N NUCLEATED RBC % (test code = 0.0 % 0-0 N NRBC%) NEUTROPHIL # (test code = NT#) 6.22 x10 3/uL 2.0-7.6 N IMMATURE GRANULOCYTE # (test 0.06 x10 3/uL 0.00-0.03 H code = IG#) LYMPHOCYTE # (test code = LY#) 1.82 x10 3/uL 1.0-3.8 N MONOCYTE # (test code = MO#) 1.01 x10 3/uL 0.1-0.8 H EOSINOPHIL # (test code = EO#) 0.17 x10 3/uL 0.0-0.2 N BASOPHIL # (test code = BA#) 0.06 x10 3/uL 0.0-0.2 N NUCLEATED RBC # (test code = 0.00 x10 3/uL 0.0-0.1 N NRBC#) MANUAL DIFF REQUIRED (test code NO = MDIFF) CBC W/AUTO [id number] 14:25:00 Test Item Value Reference Range Interpretation Comments WHITE BLOOD CELL 11.90 x10 3/uL 4.5-11.0 H (test code = WBC) RED BLOOD CELL (test 3.35 x10 6/uL 3.54-5.02 L code = RBC) HEMOGLOBIN (test code 12.3 g/dL 11.0-15.0 N = HGB) HEMATOCRIT (test code 36.3 % 33.0-45.0 N = HCT) MEAN CELL VOLUME 108.4 fL 81.0-99.0 H (test code = MCV) MEAN CELL HGB (test 36.7 pg 27.0-33.0 H code = MCH) MEAN CELL HGB 33.9 g/dL 33.0-37.0 N CONCETRATION (test code = MCHC) RED CELL DISTRIBUTION 13.2 % 11.5-14.5 N WIDTH CV (test code = RDW) RED CELL DISTRIBUTION 53.2 fL 37.0-54.0 N WIDTH SD (test code = RDW-SD) PLATELET COUNT (test 64 x10 3/uL 150-400 L code = PLT) MEAN PLATELET VOLUME 11.9 fL 7.0-9.0 H (test code = MPV) MANUAL DIFF REQUIRED YES Previou sly reported (test code = MDIFF) result: NO Edited by: [email or web address] o n 06/11/19:136778 0721: MAN D IFF NEEDED previous ly reported as: NO WBC [id number] 14:25:00 Test Item Value Reference Range Interpretation Comments SEGMENTED NEUTROPHILS (test 81 % 37-69 H code = SEG) BAND NEUTROPHIL (test code = 6.0 % 0.0-10.0 N BAND) LYMPHOCYTE (test code = 5 % 23-55 L LYMPH) MONOCYTE (test code = MON) 6 % 0-10 N EOSINOPHIL (test code = EOS) 1 % 0.0-4.0 N BASOPHIL (test code = BASO) 1 % 0.0-2.0 N POLYCHROMASIA (test code = SLIGHT POLC) POIKILOCYTOSIS (test code = SLIGHT POIK) ANISOCYTOSIS (test code = 1+ ANISO) MACROCYTOSIS (test code = 2+ MACR) TOXIC GRANULATION (test code SLIGHT = TOX) DOHLE BODIES (test code = DB) Present VACUOLATED NEUTROPHILS (test FEW code = VN) PLATELET ESTIMATE (test code 88-110 THOUSAND ADEQUATE = PLTEST) PLATELET MORPHOLOGY (test LARGE PLATELETS code = PLTMORPH) BASIC METABOLIC [id number] 08:00:00 Test Item Value Reference Range Interpretation Comments SODIUM (test code = NA) 135 mEq/L 134-147 N POTASSIUM (test code = 3.3 mEq/L 3.4-5.0 L K) CHLORIDE (test code = 102 mEq/L 100-108 N CL) CARBON DIOXIDE (test 27 mEq/L 21-33 N code = CO2) ANION GAP (test code = 9 0-20 N GAP) GLUCOSE (test code = 71 mg/dL 70-110 N GLU) BLOOD UREA NITROGEN 3 mg/dL 7-18 L (test code = BUN) GLOMERULAR FILTRATION 188.7 110-120 H Units of measure = RATE (test code = GFR) ml/mi n/1.73 m2 CREATININE (test code = 0.4 mg/dL 0.6-1.3 L CREAT) CALCIUM (test code = 7.2 mg/dL 8.0-10.5 L CA) [id number] 08:00:00 Test Item Value Reference Range Interpretation Comments AMYLASE (test code = OMKAR) 35 UNITS/L 25-115 N [id number] 08:00:00 Test Item Value Reference Range Interpretation Comments LIPASE (test code = LIP) 478 IUnit/L 73-393 H CBC W/AUTO [id number] 07:21:00 Test Item Value Reference Range Interpretation Comments WHITE BLOOD CELL 11.90 x10 3/uL 4.5-11.0 H (test code = WBC) RED BLOOD CELL (test 3.35 x10 6/uL 3.54-5.02 L code = RBC) HEMOGLOBIN (test code 12.3 g/dL 11.0-15.0 N = HGB) HEMATOCRIT (test code 36.3 % 33.0-45.0 N = HCT) MEAN CELL VOLUME 108.4 fL 81.0-99.0 H (test code = MCV) MEAN CELL HGB (test 36.7 pg 27.0-33.0 H code = MCH) MEAN CELL HGB 33.9 g/dL 33.0-37.0 N CONCETRATION (test code = MCHC) RED CELL DISTRIBUTION 13.2 % 11.5-14.5 N WIDTH CV (test code = RDW) RED CELL DISTRIBUTION 53.2 fL 37.0-54.0 N WIDTH SD (test code = RDW-SD) PLATELET COUNT (test 64 x10 3/uL 150-400 L code = PLT) MEAN PLATELET VOLUME 11.9 fL 7.0-9.0 H (test code = MPV) MANUAL DIFF REQUIRED YES Previou sly reported (test code = MDIFF) result: NO Edited by: [email or web address] o n 06/11/19:063400 0721: MAN D IFF NEEDED previous ly reported as: NO WBC [id number] 07:21:00 Test Item Value Reference Range Interpretation Comments ANISOCYTOSIS (test code = ANISO) PLATELET ESTIMATE (test code = THOUSAND ADEQUATE PLTEST) CBC W/AUTO [id number] 07:21:00 Test Item Value Reference Range Interpretation Comments WHITE BLOOD CELL 11.90 x10 3/uL 4.5-11.0 H (test code = WBC) RED BLOOD CELL (test 3.35 x10 6/uL 3.54-5.02 L code = RBC) HEMOGLOBIN (test code 12.3 g/dL 11.0-15.0 N = HGB) HEMATOCRIT (test code 36.3 % 33.0-45.0 N = HCT) MEAN CELL VOLUME 108.4 fL 81.0-99.0 H (test code = MCV) MEAN CELL HGB (test 36.7 pg 27.0-33.0 H code = MCH) MEAN CELL HGB 33.9 g/dL 33.0-37.0 N CONCETRATION (test code = MCHC) RED CELL DISTRIBUTION 13.2 % 11.5-14.5 N WIDTH CV (test code = RDW) RED CELL DISTRIBUTION 53.2 fL 37.0-54.0 N WIDTH SD (test code = RDW-SD) PLATELET COUNT (test 64 x10 3/uL 150-400 L code = PLT) MEAN PLATELET VOLUME 11.9 fL 7.0-9.0 H (test code = MPV) MANUAL DIFF REQUIRED YES Previou sly reported (test code = MDIFF) result: NO Edited by: [email or web address] o n 06/11/19:510312 0721: MAN D IFF NEEDED previous ly reported as: NO WBC [id number] 07:21:00 Test Item Value Reference Range Interpretation Comments ANISOCYTOSIS (test code = ANISO) PLATELET ESTIMATE (test code = THOUSAND ADEQUATE PLTEST) CBC W/AUTO [id number] 07:18:00 Test Item Value Reference Range Interpretation Comments WHITE BLOOD CELL (test code = 11.90 x10 3/uL 4.5-11.0 H WBC) RED BLOOD CELL (test code = 3.35 x10 6/uL 3.54-5.02 L RBC) HEMOGLOBIN (test code = HGB) 12.3 g/dL 11.0-15.0 N HEMATOCRIT (test code = HCT) 36.3 % 33.0-45.0 N MEAN CELL VOLUME (test code = 108.4 fL 81.0-99.0 H MCV) MEAN CELL HGB (test code = 36.7 pg 27.0-33.0 H MCH) MEAN CELL HGB CONCETRATION 33.9 g/dL 33.0-37.0 N (test code = MCHC) RED CELL DISTRIBUTION WIDTH CV 13.2 % 11.5-14.5 N (test code = RDW) RED CELL DISTRIBUTION WIDTH SD 53.2 fL 37.0-54.0 N (test code = RDW-SD) PLATELET COUNT (test code = 64 x10 3/uL 150-400 L PLT) MEAN PLATELET VOLUME (test 11.9 fL 7.0-9.0 H code = MPV) NEUTROPHIL % (test code = NT%) 79.1 % 56.0-77.0 H IMMATURE GRANULOCYTE % (test 0.6 % 0.0-2.0 N code = IG%) LYMPHOCYTE % (test code = LY%) 10.8 % 14.0-32.0 L MONOCYTE % (test code = MO%) 7.8 % 4.8-9.0 N EOSINOPHIL % (test code = EO%) 1.0 % 0.3-3.7 N BASOPHIL % (test code = BA%) 0.7 % 0.0-2.0 N NUCLEATED RBC % (test code = 0.0 % 0-0 N NRBC%) NEUTROPHIL # (test code = NT#) 9.42 x10 3/uL 2.0-7.6 H IMMATURE GRANULOCYTE # (test 0.07 x10 3/uL 0.00-0.03 H code = IG#) LYMPHOCYTE # (test code = LY#) 1.28 x10 3/uL 1.0-3.8 N MONOCYTE # (test code = MO#) 0.93 x10 3/uL 0.1-0.8 H EOSINOPHIL # (test code = EO#) 0.12 x10 3/uL 0.0-0.2 N BASOPHIL # (test code = BA#) 0.08 x10 3/uL 0.0-0.2 N NUCLEATED RBC # (test code = 0.00 x10 3/uL 0.0-0.1 N NRBC#) MANUAL DIFF REQUIRED (test NO code = MDIFF) UA RFLX MICR CULT IF [id number] 22:11:00 Test Item Value Reference Range Interpretation Comments UA COLOR (test code = COLU) STRAW YEL/STRAW UA APPEARANCE (test code = APPU) CLEAR CLEAR UA GLUCOSE DIPSTICK (test code = NEGATIVE NEGATIVE DGLUU) UA BILIRUBIN DIPSTICK (test code NEGATIVE NEGATIVE = BILU) UA KETONE DIPSTICK (test code = NEGATIVE NEGATIVE KETU) UA SPECIFIC GRAVITY (test code = 1.000 1.005-1.030 L SGU) UA BLOOD DIPSTICK (test code = NEGATIVE NEGATIVE SUKHDEEP) UA PH DIPSTICK (test code = CHLOE) 7.0 5.0-7.0 N UA PROTEIN DIPSTICK (test code = NEGATIVE NEGATIVE PROU) UA UROBILINIOGEN DIPSTICK (test 0.2 mg/dL 0.2-1.0 code = URO) UA NITRITE DIPSTICK (test code = NEGATIVE NEGATIVE MADONNA) UA LEUKOCYTE ESTERASE DIPSTICK NEGATIVE NEGATIVE (test code = LEUU) UA WBC (test code = WBCU) 0-3 WBC/HPF 0-3 UA RBC (test code = RBCU) 0-3 RBC/HPF 0-3 UA WBC NO REFLEX (test code = 0-3 WBC/HPF 0-3 WBCUCL) UA BACTERIA (test code = BACU) TRACE /HPF NONE SEEN UA SQUAMOUS CELLS (test code = 0-5 /HPF NONE SEEN SQU) Indication for culture: Temperature > 100.4 FSpecimen Description: CLEAN CATCH- US ABDOMEN [id number] 10:04:00 Name: NNAMDI BARTH [facility] : 1990 Age/S: 28 / F [address] [place] [address] Blvd Unit #: [id number] Loc: [facility] [id number] Phys: Roney Haynes MD Acct: [id number] Dis Date: Status: DIS IN PHONE #: [phone] Exam Date: 06/10/2019 09 FAX #: [phone] Reason: evaluate for non-calified gallstones EXAMS: CPTCODE: [id number] US ABDOMEN COMPLETE 31522 PROCEDURE: ABDOMINAL ULTRASOUND INDICATION: Acute pancreatitis. evaluate for non-calified gallstones COMPARISON: CT of 06/08/2019 TECHNIQUE: Sonographic evaluation of the abdomen was performed with supplemental color and pulsed Doppler. LIMITATIONS: None. FINDINGS: LIVER: The liver is diffusely increased in echogenicity with slight coarsened echotexture. No focal liver lesion. Hepatopedal flow in the main portal vein. GALLBLADDER: There are no gallstones, sludge, pericholecystic fluid or wall thickening. BILE DUCTS: No biliary dilatation. The common duct measures 4 mm. PANCREAS: Visualization is suboptimal. No mass lesion or peripancreatic fluid collection. SPLEEN: The spleen is normal. Splenic length 10 cm. KIDNEYS: The right kidney measures 10.9 cm in length. Normal contour and parenchymal echogenicity. There is no hydronephrosis, nephrolithiasis, mass lesion or perinephric collection. The left kidney measures 10.9 cm in length. Normal contour and parenchymal echogenicity. There isno hydronephrosis, nephrolithiasis, mass lesion or perinephric collection.AORTA AND INFERIOR VENA CAVA: Visualized portions appear normal. Additional comments: No free intraperitoneal fluid. Small left pleural effusion. IMPRESSION: 1. Normal gallbladder. Negative for cholelithiasis. No biliary dilatation. PAGE 1 Signed Report (CONTINUED) Name: NNAMDI BARTH [facility] : 1990 Age/S: 28 / F [address] [place] [address] Unit #: [id number] Loc: [place] [address] Phys: Roney Haynes MD Acct: [id number] Dis Date:Status: DIS IN PHONE #: [phone] Exam Date: 06/10/2019920 FAX #: [phone] Reason: evaluate for non-calified gallstones EXAMS: CPT CODE: [id number] US ABDOMEN COMPLETE 69869 <Continued> 2. Hepatic steatosis. 3. Small left pleural effusion. SL: [id number] at 1004 Reported and signed by: Bhavesh Kaufman M.D. CC: Roney Haynes MD Technologist: Hannah Thomas RDMS(A)(BR) Trnscb Date/Time: 06/10/2019 (1004) [email or web address] Orig Print D/T: S: 06/10/2019 (1007) Probe: PAGE 2 Signed Report- US ABDOMEN [id number] 10:04:00 Name: NNAMDI BARTH : 1990 Age/S: 28 / F [address] [place] [address] Unit #: [id number] Loc: [facility] [id number] Phys: Roney Haynes MD Acct: [id number] Dis Date: Status: ADM IN PHONE #: [phone] Exam Date: 06/10/2019920 FAX #: [phone] Reason: evaluate for non-calified gallstones EXAMS: CPTCODE: [id number] US ABDOMEN COMPLETE 12860 PROCEDURE: A BDOMINAL ULTRASOUND INDICATION: Acute pancreatitis. evaluate for non-calified gallstones COMPARISON: CT of 06/08/2019 TECHNIQUE: Sonographic evaluation of the abdomen was performed with supplemental color and pulsed Doppler. LIMITATIONS: None. FINDINGS: LIVER: The liver is diffusely increased in echogenicity with slight coarsened echotexture. No focal liver lesion. Hepatopedal flow in the main portal vein. GALLBLADDER: There are no gallstones, sludge, pericholecystic fluid or wall thickening. BILE DUCTS: No biliary dilatation. The common duct measures 4 mm. PANCREAS: Visualization is suboptimal. No mass lesion or peripancreatic fluid collection. SPLEEN: The spleen is normal. Splenic length 10 cm. KIDNEYS: The right kidney measures 10.9 cm in length. Normal contour and parenchymal echogenicity. There is no hydronephrosis, nephrolithiasis, mass lesion or perinephric collection. The left kidney measures 10.9 cm in length. Normal contour and parenchymal echogenicity. There isno hydronephrosis, nephrolithiasis, mass lesion or perinephric collection.AORTA AND INFERIOR VENA CAVA: Visualized portions appear normal. Additional comments: No free intraperitoneal fluid. Small left pleural effusion. IMPRESSION: 1. Normal gallbladder. Negative for cholelithiasis. No biliary dilatation. PAGE 1 Signed Report (CONTINUED) Name: NNAMDI BARTH : 1990 Age/S: 28 / F [address] [place] [address] Unit #: [id number] Loc: [facility] [place] [address] Phys: Roney Haynes MD Acct: [id number] Dis Date:Status: ADM IN PHONE #: [phone] Exam Date: 06/10/2019920 FAX #: [phone] Reason: evaluate for non-calified gallstones EXAMS: CPT CODE: [id number] US ABDOMEN COMPLETE 37022 <Continued> 2. Hepatic steatosis. 3. Small left pleural effusion. SL: [id number] E lectronically Signed by Anson Kaufman on 06/10/2019 at 1004 Reported and signed by: Bhavesh Kaufman M.D. CC: Roney Haynes MD Technologist: Hannah Thomas RDMS(Rolan)(BR) Trnkyb Date/Time: 06/10/2019 (1004) tCHONG Orig Print D/T: S: 06/10/2019 (1007) Probe: PAGE 2 Signed Report- US ABDOMEN [id number] 10:04:00 Name: NNAMDI BARTH [facility] : 1990 Age/S: 28 / F [address] [place] [address] Unit #: [id number] Loc: [facility] [id number] Phys: Roney Haynes MD Acct: [id number] Dis Date: [id number] Status: DIS IN PHONE #: [phone] Exam Date: 06/10/2019920 FAX #: [phone] Reason: evaluate for non-calified gallstones EXAMS: CPTCODE: [id number] US ABDOMEN COMPLETE 91723 PROCEDURE: ABDOMINAL ULTRASOUND INDICATION: Acute pancreatitis. evaluate for non-calified gallstones COMPARISON: CT of 06/08/2019 TECHNIQUE: Sonographic evaluation of the abdomen was performed with supplemental color and pulsed Doppler. LIMITATIONS: None. FINDINGS: LIVER: The liver is diffusely increased in echogenicity with slight coarsened echotexture. No focal liver lesion. Hepatopedal flow in the main portal vein. GALLBLADDER: There are no gallstones, sludge, pericholecystic fluid or wall thickening. BILE DUCTS: No biliary dilatation. The common duct measures 4 mm. PANCREAS: Visualization is suboptimal. No mass lesion or peripancreatic fluid collection. SPLEEN: The spleen is normal. Splenic length 10 cm. KIDNEYS: The right kidney measures 10.9 cm in length. Normal contour and parenchymal echogenicity. There is no hydronephrosis, nephrolithiasis, mass lesion or perinephric collection. The left kidney measures 10.9 cm in length. Normal contour and parenchymal echogenicity. There isno hydronephrosis, nephrolithiasis, mass lesion or perinephric collection.AORTA AND INFERIOR VENA CAVA: Visualized portions appear normal. Additional comments: No free intraperitoneal fluid. Small left pleural effusion. IMPRESSION: 1. Normal gallbladder. Negative for cholelithiasis. No biliary dilatation. PAGE 1 Signed Report (CONTINUED) Name: NNAMDI BARTH [facility] : 1990 Age/S: 28 / F [address] [place] [address] Unit #: [id number] Loc: [place] [address] Phys: Roney Haynes MD Acct: [id number] Dis Date: [id number]: DIS IN PHONE #: [phone] Exam Date: 06/10/2019920 FAX #: [phone] Reason: evaluate for non-calified gallstones EXAMS: CPT CODE: [id number] US ABDOMEN COMPLETE 82803 <Continued> 2. Hepatic steatosis. 3. Small left pleural effusion. SL: [id number] at 1004 Reported and signed by: Bhavesh Kaufman M.D. CC: Roney Haynes MD Technologist: Hannah Thmoas RDMS(Rolan)(BR) Trnscb Date/Time: 06/10/2019 (1004) Bert Orig Print D/T: S: 06/10/2019 (1007) Probe: PAGE 2 Signed ReportCBC W/AUTO [id number] 03:04:00 Test Item Value Reference Range Interpretation Comments WHITE BLOOD CELL (test code = 8.76 x10 3/uL 4.5-11.0 N WBC) RED BLOOD CELL (test code = 3.41 x10 6/uL 3.54-5.02 L RBC) HEMOGLOBIN (test code = HGB) 12.6 g/dL 11.0-15.0 N HEMATOCRIT (test code = HCT) 37.3 % 33.0-45.0 N MEAN CELL VOLUME (test code = 109.4 fL 81.0-99.0 H MCV) MEAN CELL HGB (test code = MCH) 37.0 pg 27.0-33.0 H MEAN CELL HGB CONCETRATION 33.8 g/dL 33.0-37.0 N (test code = MCHC) RED CELL DISTRIBUTION WIDTH CV 13.4 % 11.5-14.5 N (test code = RDW) RED CELL DISTRIBUTION WIDTH SD 54.6 fL 37.0-54.0 H (test code = RDW-SD) PLATELET COUNT (test code = 78 x10 3/uL 150-400 L PLT) IMMATURE PLATELET FRACTION 5.7 % 0.9-11.2 N (test code = IPF) MEAN PLATELET VOLUME (test code 10.3 fL 7.0-9.0 H = MPV) NEUTROPHIL % (test code = NT%) 73.8 % 56.0-77.0 N IMMATURE GRANULOCYTE % (test 0.5 % 0.0-2.0 N code = IG%) LYMPHOCYTE % (test code = LY%) 14.5 % 14.0-32.0 N MONOCYTE % (test code = MO%) 10.2 % 4.8-9.0 H EOSINOPHIL % (test code = EO%) 0.7 % 0.3-3.7 N BASOPHIL % (test code = BA%) 0.3 % 0.0-2.0 N NUCLEATED RBC % (test code = 0.0 % 0-0 N NRBC%) NEUTROPHIL # (test code = NT#) 6.47 x10 3/uL 2.0-7.6 N IMMATURE GRANULOCYTE # (test 0.04 x10 3/uL 0.00-0.03 H code = IG#) LYMPHOCYTE # (test code = LY#) 1.27 x10 3/uL 1.0-3.8 N MONOCYTE # (test code = MO#) 0.89 x10 3/uL 0.1-0.8 H EOSINOPHIL # (test code = EO#) 0.06 x10 3/uL 0.0-0.2 N BASOPHIL # (test code = BA#) 0.03 x10 3/uL 0.0-0.2 N NUCLEATED RBC # (test code = 0.00 x10 3/uL 0.0-0.1 N NRBC#) MANUAL DIFF REQUIRED (test code NO = MDIFF) PLT [id number] 03:04:00 Test Item Value Reference Range Interpretation Comments PLATELET ESTIMATE (test code 100-125 THOUSAND ADEQUATE = PLTEST) PLATELET MORPHOLOGY (test LARGE PLATELETS code = PLTMORPH) BASIC METABOLIC [id number] 02:55:00 Test Item Value Reference Range Interpretation Comments SODIUM (test code = NA) 137 mEq/L 134-147 N POTASSIUM (test code = 3.1 mEq/L 3.4-5.0 L K) CHLORIDE (test code = 103 mEq/L 100-108 N CL) CARBON DIOXIDE (test 29 mEq/L 21-33 code = CO2) ANION GAP (test code = 8 0-20 N GAP) GLUCOSE (test code = 88 mg/dL 70-110 N GLU) BLOOD UREA NITROGEN 2 mg/dL 7-18 L (test code = BUN) GLOMERULAR FILTRATION 188.7 110-120 H Units of measure = RATE (test code = GFR) ml/mi n/1.73 m2 CREATININE (test code = 0.4 mg/dL 0.6-1.3 L CREAT) CALCIUM (test code = 6.3 mg/dL 8.0-10.5 LL CA) [id number] 02:55:00 Test Item Value Reference Range Interpretation Comments AMYLASE (test code = OMKAR) 64 UNITS/L 25-115 N [id number] 02:55:00 Test Item Value Reference Range Interpretation Comments LIPASE (test code = LIP) 1088 IUnit/L 73-393 H CBC W/AUTO [id number] 02:44:00 Test Item Value Reference Range Interpretation Comments WHITE BLOOD CELL (test code = 8.76 x10 3/uL 4.5-11.0 N WBC) RED BLOOD CELL (test code = 3.41 x10 6/uL 3.54-5.02 L RBC) HEMOGLOBIN (test code = HGB) 12.6 g/dL 11.0-15.0 N HEMATOCRIT (test code = HCT) 37.3 % 33.0-45.0 N MEAN CELL VOLUME (test code = 109.4 fL 81.0-99.0 H MCV) MEAN CELL HGB (test code = MCH) 37.0 pg 27.0-33.0 H MEAN CELL HGB CONCETRATION 33.8 g/dL 33.0-37.0 N (test code = MCHC) RED CELL DISTRIBUTION WIDTH CV 13.4 % 11.5-14.5 N (test code = RDW) RED CELL DISTRIBUTION WIDTH SD 54.6 fL 37.0-54.0 H (test code = RDW-SD) PLATELET COUNT (test code = 78 x10 3/uL 150-400 L PLT) IMMATURE PLATELET FRACTION 5.7 % 0.9-11.2 N (test code = IPF) MEAN PLATELET VOLUME (test code 10.3 fL 7.0-9.0 H = MPV) NEUTROPHIL % (test code = NT%) 73.8 % 56.0-77.0 N IMMATURE GRANULOCYTE % (test 0.5 % 0.0-2.0 N code = IG%) LYMPHOCYTE % (test code = LY%) 14.5 % 14.0-32.0 N MONOCYTE % (test code = MO%) 10.2 % 4.8-9.0 H EOSINOPHIL % (test code = EO%) 0.7 % 0.3-3.7 N BASOPHIL % (test code = BA%) 0.3 % 0.0-2.0 N NUCLEATED RBC % (test code = 0.0 % 0-0 N NRBC%) NEUTROPHIL # (test code = NT#) 6.47 x10 3/uL 2.0-7.6 N IMMATURE GRANULOCYTE # (test 0.04 x10 3/uL 0.00-0.03 H code = IG#) LYMPHOCYTE # (test code = LY#) 1.27 x10 3/uL 1.0-3.8 N MONOCYTE # (test code = MO#) 0.89 x10 3/uL 0.1-0.8 H EOSINOPHIL # (test code = EO#) 0.06 x10 3/uL 0.0-0.2 N BASOPHIL # (test code = BA#) 0.03 x10 3/uL 0.0-0.2 N NUCLEATED RBC # (test code = 0.00 x10 3/uL 0.0-0.1 N NRBC#) MANUAL DIFF REQUIRED (test code NO = MDIFF) PLT [id number] 02:44:00 Test Item Value Reference Range Interpretation Comments PLATELET ESTIMATE (test code = THOUSAND ADEQUATE PLTEST) CBC W/AUTO [id number] 02:44:00 Test Item Value Reference Range Interpretation Comments WHITE BLOOD CELL (test code = 8.76 x10 3/uL 4.5-11.0 N WBC) RED BLOOD CELL (test code = 3.41 x10 6/uL 3.54-5.02 L RBC) HEMOGLOBIN (test code = HGB) 12.6 g/dL 11.0-15.0 N HEMATOCRIT (test code = HCT) 37.3 % 33.0-45.0 N MEAN CELL VOLUME (test code = 109.4 fL 81.0-99.0 H MCV) MEAN CELL HGB (test code = MCH) 37.0 pg 27.0-33.0 H MEAN CELL HGB CONCETRATION 33.8 g/dL 33.0-37.0 N (test code = MCHC) RED CELL DISTRIBUTION WIDTH CV 13.4 % 11.5-14.5 N (test code = RDW) RED CELL DISTRIBUTION WIDTH SD 54.6 fL 37.0-54.0 H (test code = RDW-SD) PLATELET COUNT (test code = 78 x10 3/uL 150-400 L PLT) IMMATURE PLATELET FRACTION 5.7 % 0.9-11.2 N (test code = IPF) MEAN PLATELET VOLUME (test code 10.3 fL 7.0-9.0 H = MPV) NEUTROPHIL % (test code = NT%) 73.8 % 56.0-77.0 N IMMATURE GRANULOCYTE % (test 0.5 % 0.0-2.0 N code = IG%) LYMPHOCYTE % (test code = LY%) 14.5 % 14.0-32.0 N MONOCYTE % (test code = MO%) 10.2 % 4.8-9.0 H EOSINOPHIL % (test code = EO%) 0.7 % 0.3-3.7 N BASOPHIL % (test code = BA%) 0.3 % 0.0-2.0 N NUCLEATED RBC % (test code = 0.0 % 0-0 N NRBC%) NEUTROPHIL # (test code = NT#) 6.47 x10 3/uL 2.0-7.6 N IMMATURE GRANULOCYTE # (test 0.04 x10 3/uL 0.00-0.03 H code = IG#) LYMPHOCYTE # (test code = LY#) 1.27 x10 3/uL 1.0-3.8 N MONOCYTE # (test code = MO#) 0.89 x10 3/uL 0.1-0.8 H EOSINOPHIL # (test code = EO#) 0.06 x10 3/uL 0.0-0.2 N BASOPHIL # (test code = BA#) 0.03 x10 3/uL 0.0-0.2 N NUCLEATED RBC # (test code = 0.00 x10 3/uL 0.0-0.1 N NRBC#) MANUAL DIFF REQUIRED (test code NO = MDIFF) PLT [id number] 02:44:00 Test Item Value Reference Range Interpretation Comments PLATELET ESTIMATE (test code = THOUSAND ADEQUATE PLTEST) CBC W/AUTO [id number] 11:43:00 Test Item Value Reference Range Interpretation Comments WHITE BLOOD CELL (test code = 7.08 x10 3/uL 4.5-11.0 WBC) RED BLOOD CELL (test code = 3.66 x10 6/uL 3.54-5.02 N RBC) HEMOGLOBIN (test code = HGB) 13.4 g/dL 11.0-15.0 N HEMATOCRIT (test code = HCT) 39.6 % 33.0-45.0 N MEAN CELL VOLUME (test code = 108.2 fL 81.0-99.0 H MCV) MEAN CELL HGB (test code = MCH) 36.6 pg 27.0-33.0 H MEAN CELL HGB CONCETRATION 33.8 g/dL 33.0-37.0 N (test code = MCHC) RED CELL DISTRIBUTION WIDTH CV 13.7 % 11.5-14.5 N (test code = RDW) RED CELL DISTRIBUTION WIDTH SD 54.9 fL 37.0-54.0 H (test code = RDW-SD) PLATELET COUNT (test code = 114 x10 3/uL 150-400 L PLT) MEAN PLATELET VOLUME (test code 10.1 fL 7.0-9.0 H = MPV) NEUTROPHIL % (test code = NT%) 66.9 % 56.0-77.0 N IMMATURE GRANULOCYTE % (test 0.6 % 0.0-2.0 N code = IG%) LYMPHOCYTE % (test code = LY%) 20.9 % 14.0-32.0 N MONOCYTE % (test code = MO%) 10.9 % 4.8-9.0 H EOSINOPHIL % (test code = EO%) 0.1 % 0.3-3.7 L BASOPHIL % (test code = BA%) 0.6 % 0.0-2.0 N NUCLEATED RBC % (test code = 0.0 % 0-0 N NRBC%) NEUTROPHIL # (test code = NT#) 4.74 x10 3/uL 2.0-7.6 N IMMATURE GRANULOCYTE # (test 0.04 x10 3/uL 0.00-0.03 H code = IG#) LYMPHOCYTE # (test code = LY#) 1.48 x10 3/uL 1.0-3.8 N MONOCYTE # (test code = MO#) 0.77 x10 3/uL 0.1-0.8 N EOSINOPHIL # (test code = EO#) 0.01 x10 3/uL 0.0-0.2 N BASOPHIL # (test code = BA#) 0.04 x10 3/uL 0.0-0.2 N NUCLEATED RBC # (test code = 0.00 x10 3/uL 0.0-0.1 N NRBC#) MANUAL DIFF REQUIRED (test code NO = MDIFF) RBC [id number] 11:43:00 Test Item Value Reference Range Interpretation Comments POIKILOCYTOSIS (test code = POIK) SLIGHT ANISOCYTOSIS (test code = ANISO) 1+ MACROCYTOSIS (test code = MACR) 2+ PLT [id number] 11:43:00 Test Item Value Reference Range Interpretation Comments PLATELET ESTIMATE Decreased THOUSAND ADEQUATE A (test code = PLTEST) PLATELET MORPHOLOGY LARGE PLATELETS FEW L ARGE PLTS (test code = SEEN PLTMORPH) CBC W/AUTO [id number] 08:21:00 Test Item Value Reference Range Interpretation Comments WHITE BLOOD CELL (test code = 7.08 x10 3/uL 4.5-11.0 WBC) RED BLOOD CELL (test code = 3.66 x10 6/uL 3.54-5.02 N RBC) HEMOGLOBIN (test code = HGB) 13.4 g/dL 11.0-15.0 N HEMATOCRIT (test code = HCT) 39.6 % 33.0-45.0 N MEAN CELL VOLUME (test code = 108.2 fL 81.0-99.0 H MCV) MEAN CELL HGB (test code = MCH) 36.6 pg 27.0-33.0 H MEAN CELL HGB CONCETRATION 33.8 g/dL 33.0-37.0 N (test code = MCHC) RED CELL DISTRIBUTION WIDTH CV 13.7 % 11.5-14.5 N (test code = RDW) RED CELL DISTRIBUTION WIDTH SD 54.9 fL 37.0-54.0 H (test code = RDW-SD) PLATELET COUNT (test code = 114 x10 3/uL 150-400 L PLT) MEAN PLATELET VOLUME (test code 10.1 fL 7.0-9.0 H = MPV) NEUTROPHIL % (test code = NT%) 66.9 % 56.0-77.0 N IMMATURE GRANULOCYTE % (test 0.6 % 0.0-2.0 N code = IG%) LYMPHOCYTE % (test code = LY%) 20.9 % 14.0-32.0 N MONOCYTE % (test code = MO%) 10.9 % 4.8-9.0 H EOSINOPHIL % (test code = EO%) 0.1 % 0.3-3.7 L BASOPHIL % (test code = BA%) 0.6 % 0.0-2.0 N NUCLEATED RBC % (test code = 0.0 % 0-0 N NRBC%) NEUTROPHIL # (test code = NT#) 4.74 x10 3/uL 2.0-7.6 N IMMATURE GRANULOCYTE # (test 0.04 x10 3/uL 0.00-0.03 H code = IG#) LYMPHOCYTE # (test code = LY#) 1.48 x10 3/uL 1.0-3.8 N MONOCYTE # (test code = MO#) 0.77 x10 3/uL 0.1-0.8 N EOSINOPHIL # (test code = EO#) 0.01 x10 3/uL 0.0-0.2 N BASOPHIL # (test code = BA#) 0.04 x10 3/uL 0.0-0.2 N NUCLEATED RBC # (test code = 0.00 x10 3/uL 0.0-0.1 N NRBC#) MANUAL DIFF REQUIRED (test code NO = MDIFF) RBC [id number] 08:21:00 Test Item Value Reference Range Interpretation Comments ANISOCYTOSIS (test code = ANISO) PLT [id number] 08:21:00 Test Item Value Reference Range Interpretation Comments PLATELET ESTIMATE (test code = THOUSAND ADEQUATE PLTEST) CBC W/AUTO [id number] 08:21:00 Test Item Value Reference Range Interpretation Comments WHITE BLOOD CELL (test code = 7.08 x10 3/uL 4.5-11.0 WBC) RED BLOOD CELL (test code = 3.66 x10 6/uL 3.54-5.02 N RBC) HEMOGLOBIN (test code = HGB) 13.4 g/dL 11.0-15.0 N HEMATOCRIT (test code = HCT) 39.6 % 33.0-45.0 N MEAN CELL VOLUME (test code = 108.2 fL 81.0-99.0 H MCV) MEAN CELL HGB (test code = MCH) 36.6 pg 27.0-33.0 H MEAN CELL HGB CONCETRATION 33.8 g/dL 33.0-37.0 N (test code = MCHC) RED CELL DISTRIBUTION WIDTH CV 13.7 % 11.5-14.5 N (test code = RDW) RED CELL DISTRIBUTION WIDTH SD 54.9 fL 37.0-54.0 H (test code = RDW-SD) PLATELET COUNT (test code = 114 x10 3/uL 150-400 L PLT) MEAN PLATELET VOLUME (test code 10.1 fL 7.0-9.0 H = MPV) NEUTROPHIL % (test code = NT%) 66.9 % 56.0-77.0 N IMMATURE GRANULOCYTE % (test 0.6 % 0.0-2.0 N code = IG%) LYMPHOCYTE % (test code = LY%) 20.9 % 14.0-32.0 N MONOCYTE % (test code = MO%) 10.9 % 4.8-9.0 H EOSINOPHIL % (test code = EO%) 0.1 % 0.3-3.7 L BASOPHIL % (test code = BA%) 0.6 % 0.0-2.0 N NUCLEATED RBC % (test code = 0.0 % 0-0 N NRBC%) NEUTROPHIL # (test code = NT#) 4.74 x10 3/uL 2.0-7.6 N IMMATURE GRANULOCYTE # (test 0.04 x10 3/uL 0.00-0.03 H code = IG#) LYMPHOCYTE # (test code = LY#) 1.48 x10 3/uL 1.0-3.8 N MONOCYTE # (test code = MO#) 0.77 x10 3/uL 0.1-0.8 N EOSINOPHIL # (test code = EO#) 0.01 x10 3/uL 0.0-0.2 N BASOPHIL # (test code = BA#) 0.04 x10 3/uL 0.0-0.2 N NUCLEATED RBC # (test code = 0.00 x10 3/uL 0.0-0.1 N NRBC#) MANUAL DIFF REQUIRED (test code NO = MDIFF) RBC [id number] 08:21:00 Test Item Value Reference Range Interpretation Comments ANISOCYTOSIS (test code = ANISO) CBC W/AUTO [id number] 08:21:00 Test Item Value Reference Range Interpretation Comments WHITE BLOOD CELL (test code = 7.08 x10 3/uL 4.5-11.0 WBC) RED BLOOD CELL (test code = 3.66 x10 6/uL 3.54-5.02 N RBC) HEMOGLOBIN (test code = HGB) 13.4 g/dL 11.0-15.0 N HEMATOCRIT (test code = HCT) 39.6 % 33.0-45.0 N MEAN CELL VOLUME (test code = 108.2 fL 81.0-99.0 H MCV) MEAN CELL HGB (test code = MCH) 36.6 pg 27.0-33.0 H MEAN CELL HGB CONCETRATION 33.8 g/dL 33.0-37.0 N (test code = MCHC) RED CELL DISTRIBUTION WIDTH CV 13.7 % 11.5-14.5 N (test code = RDW) RED CELL DISTRIBUTION WIDTH SD 54.9 fL 37.0-54.0 H (test code = RDW-SD) PLATELET COUNT (test code = 114 x10 3/uL 150-400 L PLT) MEAN PLATELET VOLUME (test code 10.1 fL 7.0-9.0 H = MPV) NEUTROPHIL % (test code = NT%) 66.9 % 56.0-77.0 N IMMATURE GRANULOCYTE % (test 0.6 % 0.0-2.0 N code = IG%) LYMPHOCYTE % (test code = LY%) 20.9 % 14.0-32.0 N MONOCYTE % (test code = MO%) 10.9 % 4.8-9.0 H EOSINOPHIL % (test code = EO%) 0.1 % 0.3-3.7 L BASOPHIL % (test code = BA%) 0.6 % 0.0-2.0 N NUCLEATED RBC % (test code = 0.0 % 0-0 N NRBC%) NEUTROPHIL # (test code = NT#) 4.74 x10 3/uL 2.0-7.6 N IMMATURE GRANULOCYTE # (test 0.04 x10 3/uL 0.00-0.03 H code = IG#) LYMPHOCYTE # (test code = LY#) 1.48 x10 3/uL 1.0-3.8 N MONOCYTE # (test code = MO#) 0.77 x10 3/uL 0.1-0.8 N EOSINOPHIL # (test code = EO#) 0.01 x10 3/uL 0.0-0.2 N BASOPHIL # (test code = BA#) 0.04 x10 3/uL 0.0-0.2 N NUCLEATED RBC # (test code = 0.00 x10 3/uL 0.0-0.1 N NRBC#) MANUAL DIFF REQUIRED (test code NO = MDIFF) RBC [id number] 08:21:00 Test Item Value Reference Range Interpretation Comments ANISOCYTOSIS (test code = ANISO) PLT [id number] 08:21:00 Test Item Value Reference Range Interpretation Comments PLATELET ESTIMATE (test code = THOUSAND ADEQUATE PLTEST) COMPREHENSIVE METABOLIC [id number] 08:02:00 Test Item Value Reference Range Interpretation Comments SODIUM (test code = NA) 142 mEq/L 134-147 N POTASSIUM (test code = 3.5 mEq/L 3.4-5.0 N K) CHLORIDE (test code = 109 mEq/L 100-108 H CL) CARBON DIOXIDE (test 23 mEq/L 21-33 N code = CO2) ANION GAP (test code = 14 0-20 N GAP) GLUCOSE (test code = 87 mg/dL 70-110 N GLU) BLOOD UREA NITROGEN 4 mg/dL 7-18 L (test code = BUN) GLOMERULAR FILTRATION 145.9 110-120 H Units of measure = RATE (test code = GFR) ml/mi n/1.73 m2 CREATININE (test code = 0.5 mg/dL 0.6-1.3 L CREAT) TOTAL PROTEIN (test 6.4 g/dL 6.4-8.2 N code = PROT) ALBUMIN (test code = 3.10 g/dL 3.4-5.0 L ALB) CALCIUM (test code = 6.9 mg/dL 8.0-10.5 L CA) BILIRUBIN TOTAL (test 0.8 MG/DL <1.5 code = BILT) SGOT/AST (test code = 136 IUnit/L 15-37 H AST) SGPT/ALT (test code = 59 IUnit/L 15-65 N ALT) ALKALINE PHOSPHATASE 133 IUnit/L 20-125 H TOTAL (test code = ALKP) [id number] 08:02:00 Test Item Value Reference Range Interpretation Comments AMYLASE (test code = OMKAR) 104 UNITS/L 25-115 N [id number] 08:02:00 Test Item Value Reference Range Interpretation Comments LIPASE (test code = LIP) 2487 IUnit/L 73-393 H CHEMISTRY 8 [id number] 05:07:00 Test Item Value Reference Range Interpretation Comments ISTAT-SODIUM (test code = NAP) MMOL/L 134-147 ISTAT-POTASSIUM (test code = KP) MMOL/L 3.4-5.0 ISTAT-CHLORIDE (test code = CLP) MMOL/L 100-108 ISTAT CARBON DIOXIDE (test code = mmol/L 21-33 N ISTAT-CO2) ISTAT CALCIUM IONIZED (test code = MG/DL 1.12-1.32 ISTAT-LENA) ISTAT-GLUCOSE (test code = GLUP) MG/DL 70-110 N ISTAT-BUN (test code = BUNP) MG/DL 7-18 L BEDSIDE CREATININE (test code = MG/DL 0.6-1.3 N CREATBED) GLOMERULAR FILTRATION RATE POC 62 ML/MIN (test code = GFRBED) CHEMISTRY 8 [id number] 05:07:00 Test Item Value Reference Range Interpretation Comments ISTAT-SODIUM (test 141 MMOL/L 134-147 N code = NAP) ISTAT-POTASSIUM (test 3.7 MMOL/L 3.4-5.0 N code = KP) ISTAT-CHLORIDE (test 104 MMOL/L 100-108 N Perform ed by code = CLP) certified opera tor at [facility] ISTAT CARBON DIOXIDE 26.0 mmol/L 21-33 N (test code = ISTAT-CO2) ISTAT CALCIUM IONIZED 0.99 MG/DL 1.12-1.32 L (test code = ISTAT-LENA) ISTAT-GLUCOSE (test 93 MG/DL 70-110 N code = GLUP) ISTAT-BUN (test code = < 3 MG/DL 7-18 L BUNP) BEDSIDE CREATININE 1.1 MG/DL 0.6-1.3 N (test code = CREATBED) GLOMERULAR FILTRATION 62 ML/MIN RATE POC (test code = GFRBED) CBC W/AUTO [id number] 17:46:00 Test Item Value Reference Range Interpretation Comments WHITE BLOOD CELL (test code = 4.55 x10 3/uL 4.5-11.0 N WBC) RED BLOOD CELL (test code = 4.01 x10 6/uL 3.54-5.02 N RBC) HEMOGLOBIN (test code = HGB) 14.5 g/dL 11.0-15.0 N HEMATOCRIT (test code = HCT) 42.3 % 33.0-45.0 N MEAN CELL VOLUME (test code = 105.5 fL 81.0-99.0 H MCV) MEAN CELL HGB (test code = MCH) 36.2 pg 27.0-33.0 H MEAN CELL HGB CONCETRATION 34.3 g/dL 33.0-37.0 N (test code = MCHC) RED CELL DISTRIBUTION WIDTH CV 13.7 % 11.5-14.5 N (test code = RDW) RED CELL DISTRIBUTION WIDTH SD 53.5 fL 37.0-54.0 N (test code = RDW-SD) PLATELET COUNT (test code = 154 x10 3/uL 150-400 N PLT) MEAN PLATELET VOLUME (test code 9.9 fL 7.0-9.0 H = MPV) NEUTROPHIL % (test code = NT%) 34.3 % 56.0-77.0 L IMMATURE GRANULOCYTE % (test 0.4 % 0.0-2.0 N code = IG%) LYMPHOCYTE % (test code = LY%) 51.9 % 14.0-32.0 H MONOCYTE % (test code = MO%) 10.1 % 4.8-9.0 H EOSINOPHIL % (test code = EO%) 1.8 % 0.3-3.7 N BASOPHIL % (test code = BA%) 1.5 % 0.0-2.0 N NUCLEATED RBC % (test code = 0.0 % 0-0 N NRBC%) NEUTROPHIL # (test code = NT#) 1.56 x10 3/uL 2.0-7.6 L IMMATURE GRANULOCYTE # (test 0.02 x10 3/uL 0.00-0.03 N code = IG#) LYMPHOCYTE # (test code = LY#) 2.36 x10 3/uL 1.0-3.8 N MONOCYTE # (test code = MO#) 0.46 x10 3/uL 0.1-0.8 N EOSINOPHIL # (test code = EO#) 0.08 x10 3/uL 0.0-0.2 N BASOPHIL # (test code = BA#) 0.07 x10 3/uL 0.0-0.2 N NUCLEATED RBC # (test code = 0.00 x10 3/uL 0.0-0.1 N NRBC#) MANUAL DIFF REQUIRED (test code NO = MDIFF) RBC [id number] 17:46:00 Test Item Value Reference Range Interpretation Comments ANISOCYTOSIS (test code = ANISO) 1+ MACROCYTOSIS (test code = MACR) 1+ DRUGS OF ABUSE SCREEN [id number] 16:53:00 Test Item Value Reference Range Interpretation Comments URN COCAINE (test code NEGATIVE NEGATIVE = COCAURN) URN CANNABINOIDS (test NEGATIVE NEGATIVE code = CANNABURN) URN AMPHETAMINE (test NEGATIVE NEGATIVE code = AMPHETURN) URN BARBITURATE (test NEGATIVE NEGATIVE code = BARBITURN) URN BENZODIAZEPINE NEGATIVE NEGATIVE Cut-off v alue:200 (test code = BENZOURN) ng/mL URN OPIATES (test code POSITIVE NEGATIVE A Cut-o ff value:2000 = OPIATURN) ng/mL URN PHENCYCLIDINE (PCP) NEGATIVE NEGATIVE Cuto ffs:Barbiturates (test code = PHENCURN) 200 ng/mLBenzodiaze pines 200 ng/ mLTHC Cannabinoids 50 ng/mLOpiates(Mo rphine) 2000 ng/mLAmphetamin e 1000 ng/mLCocaine 300 ng/ mLPCP phencyclidine 25 ng/mL Unconf irmed screening resul ts shouldnot be us ed for non-medical pur poses. UA RFLX MICR CULT IF [id number] 16:51:00 Test Item Value Reference Range Interpretation Comments UA COLOR (test code = COLU) YELLOW YEL/STRAW UA APPEARANCE (test code = SL CLOUDY CLEAR APPU) UA GLUCOSE DIPSTICK (test code NEGATIVE NEGATIVE = DGLUU) UA BILIRUBIN DIPSTICK (test NEGATIVE NEGATIVE code = BILU) UA KETONE DIPSTICK (test code = TRACE NEGATIVE A KETU) UA SPECIFIC GRAVITY (test code 1.014 1.005-1.030 N = SGU) UA BLOOD DIPSTICK (test code = NEGATIVE NEGATIVE SUKHDEEP) UA PH DIPSTICK (test code = 5.0 5.0-7.0 N CHLOE) UA PROTEIN DIPSTICK (test code 2+ NEGATIVE A = PROU) UA UROBILINIOGEN DIPSTICK (test 0.2 mg/dL 0.2-1.0 code = URO) UA NITRITE DIPSTICK (test code NEGATIVE NEGATIVE = MADONNA) UA LEUKOCYTE ESTERASE DIPSTICK NEGATIVE NEGATIVE (test code = LEUU) UA WBC (test code = WBCU) 4-9 WBC/HPF 0-3 A UA RBC (test code = RBCU) 11-20 RBC/HPF 0-3 UA WBC NO REFLEX (test code = 4-9 WBC/HPF 0-3 A WBCUCL) UA BACTERIA (test code = BACU) TRACE /HPF NONE SEEN UA SQUAMOUS CELLS (test code = 6-10 /HPF NONE SEEN A SQU) UA HYALINE CAST (test code = 3-5 /LPF NONE SEEN HYALU) UA MUCUS (test code = MUCU) 2+ /LPF NONE SEEN A Indication for culture: Suprapubic PainSpecimen Description: CLEAN CATCH DRUGS OF ABUSE SCREEN [id number] 16:44:00 Test Item Value Reference Range Interpretation Comments URN COCAINE (test code NEGATIVE NEGATIVE = COCAURN) URN CANNABINOIDS (test NEGATIVE NEGATIVE code = CANNABURN) URN AMPHETAMINE (test NEGATIVE NEGATIVE code = AMPHETURN) URN BARBITURATE (test NEGATIVE NEGATIVE code = BARBITURN) URN BENZODIAZEPINE NEGATIVE NEGATIVE Cut-off v alue:200 (test code = BENZOURN) ng/mL URN OPIATES (test code NEGATIVE = OPIATURN) URN PHENCYCLIDINE (PCP) NEGATIVE NEGATIVE Cuto ffs:Barbiturates (test code = PHENCURN) 200 ng/mLBenzodiaze pines 200 ng/ mLTHC Cannabinoids 50 ng/mLOpiates(Mo rphine) 2000 ng/mLAmphetamin e 1000 ng/mLCocaine 300 ng/ mLPCP phencyclidine 25 ng/mL Unconf irmed screening resul ts shouldnot be us ed for non-medical pur poses. - CT ABD PELVIS [id number] 16:42:00 Name: NNAMDI BARTH [facility] : 1990 Age/S: 28 / F [address] [place] [address] Blvd Unit #: [id number] Loc: Compa [id number] Phys: Tete Culp NP Acct: [id number] Dis Date: Status: DIS IN PHONE #: [phone] Exam Date: 06/08/2019 1622 FAX #: [phone] Reason: Upper abd pain, HX pancreatitis EXAMS: CPTCODE: [id number] CT ABD PELVIS W/CONT 39206 Clinical Indication: Upper abdominal pain. History of pancreatitis. Comparison: None. TECHNIQUE: Contiguous axial CT images of the abdomen and pelvis were acquired following administration of 100 mL Isovue 300 IV contrast. Oral contrast was administered. Coronal and sagittal reconstructions were obtained. CT imaging performed at this location utilizes radiation dose optimization techniques which include one or more of the following: -Automated exposure control -Adjustment of the mA and/or kV according to patient size -Use of iterative reconstruction technique CT Radiation Dose DLP 319 mGy-cm FINDINGS: Lung bases are clear. Visualized cardiac apex is unremarkable. Diffuse hepatic steatosis. Gallbladder and spleen are unremarkable. Adrenal glands are normal. Kidneys are unremarkable. Inflammatory changes surround the pancreas compatible with acute pancreatitis. No fluid collection or pancreatic necrosis. Splenic and portal veins are patent. Stomach and small bowel are unremarkable. Appendix is unremarkable. Colon is predominantly collapsed with mild wall thickening. Abdominal aorta is normal caliber. No lymp hadenopathy. No free fluid or pneumoperitoneum. Urinary bladder is nondistended. Bilateral ovarian follicles or cysts. Uterus is unremarkable. No free pelvic fluid. Osseous structures and soft tissues are unremarkable. IMPRESSION: 1. Acute pancreatitis without complication. No fluid collection or pancreatic necrosis.2. Mild colonic wall thickening of unknown significance. 3. Diffuse hepatic steatosis. SL: [id number] PAGE 1 Signed Report (CONTINUED) Name: NNAMDI BARTH [place] : 1990 Age/S: 28 / F [address] [place] [address] Unit #: [id number] Loc: WAQAR [place] [address] Phys: Tete Culp NP Acct: [id number] Dis Date: Status: DIS IN PHONE #: [phone] Exam Date: 06/08/2019 162 FAX #: [phone] Reason: Upper abd pain, HX pancreatitis EXAMS: CPT CODE: [id number] CT ABD PELVIS W/CONT 06969 <Continued> at 1642 Reported and signed by: Cameron Dixon M.D. CC: Aamir Meehan MD; Tete Culp NP Technologist:RT Vlademar(R)(CT) CTDI: DLP: Trnscb Date/Time: 06/08/2019 (164) [email or web address] Orig Print D/T: S: 06/08/2019 (6965) PAGE 2 Signed Report- CT ABD PELVIS [id number] 16:42:00 Name: NNAMDI BARTH [place] : 1990 Age/S: 28 / F [address] [place] [address] Unit #: [id number] Loc: WAQAR [id number] Phys: Tete Culp NP Acct: [id number] Dis Date: Status: REG ER PHONE #: [phone] Exam Date: 06/08/2019 1622 FAX #: [phone] Reason: Upper abd pain, HX pancreatitis EXAMS: CPTCODE: [id number] CT ABD PELVIS W/CONT 03503 Clinical Indication: Upper abdominal pain. History of pancreatitis. Comparison: None. TECHNIQUE: Contiguous axial CT images of the abdomen and pelvis were acquired following administration of 100 mL Isovue 300 IV contrast. Oral contrast was administered. Coronal and sagittal reconstructions were obtained. CT imaging performed at this location utilizes radiation dose optimization techniques which include one or more of the following: -Automated exposure control -Adjustment of the mA and/or kV according to patient size -Use of iterative reconstruction technique CT Radiation Dose DLP 319 mGy-cm FINDINGS: Lung bases are clear. Visualized cardiac apex is unremarkable. Diffuse hepatic steatosis. Gallbladder and spleen are unremarkable. Adrenal glands are normal. Kidneys are unremarkable. Inflammatory changes surround the pancreas compatible with acute pancreatitis. No fluid collection or pancreatic necrosis. Splenic and portal veins are patent. Stomach and small bowel are unremarkable. Appendix is unremarkable. Colon is predominantly collapsed with mild wall thickening. Abdominal aorta is normal caliber. No lymp hadenopathy. No free fluid or pneumoperitoneum. Urinary bladder is nondistended. Bilateral ovarian follicles or cysts. Uterus is unremarkable. No free pelvic fluid. Osseous structures and soft tissues are unremarkable. IMPRESSION: 1. Acute pancreatitis without complication. No fluid collection or pancreatic necrosis.2. Mild colonic wall thickening of unknown significance. 3. Diffuse hepatic steatosis. SL: [id number] PAGE 1 Signed Report (CONTINUED) Name: NNAMDI BARTH [facility] : 1990 Age/S: 28 / F [address] [place] [address] Unit #: [id number] Loc: [place] [address] Phys: Tete Culp NP Acct: [id number] Dis Date: Status: REG ER PHONE #: [phone] Exam Date: 06/08/2019 1622 FAX #: [phone] Reason: Upper abd pain, HX pancreatitis EXAMS: CPT CODE: [id number] CT ABD PELVIS W/CONT 95418 <Continued> at 1642 Reported and signed by: Cameron Dixon M.D. CC: Aamir Meehan MD; Tete Culp NP Technologist:Haleigh Hicks, RT(R)(CT) CTDI: DLP: Trnscb Date/Time: 06/08/2019 (164) [email or web address] Orig Print D/T: S: 06/08/2019 (7041) PAGE 2 Signed Report- CT ABD PELVIS [id number] 16:42:00 Name: NNAMDI BARTH [place] : 1990 Age/S: 28 / F [address] [place] [address] Unit #: [id number] Loc: [facility] [id number] Phys: Tete Culp [employer] Acct: [id number] Dis Date: 07/01/2019 Status: DIS IN PHONE #: [phone] Exam Date: 06/08/2019 1622 FAX #: [phone] Reason: Upper abd pain, HX pancreatitis EXAMS: CPTCODE: [id number] CT ABD PELVIS W/CONT 38814 Clinical Indication: Upper abdominal pain. History of pancreatitis. Comparison: None. TECHNIQUE: Contiguous axial CT images of the abdomen and pelvis were acquired following administration of 100 mL Isovue 300 IV contrast. Oral contrast was administered. Coronal and sagittal reconstructions were obtained. CT imaging performed at this location utilizes radiation dose optimization techniques which include one or more of the following: -Automated exposure control -Adjustment of the mA and/or kV according to patient size -Use of iterative reconstruction technique CT Radiation Dose DLP 319 mGy-cm FINDINGS: Lung bases are clear. Visualized cardiac apex is unremarkable. Diffuse hepatic steatosis. Gallbladder and spleen are unremarkable. Adrenal glands are normal. Kidneys are unremarkable. Inflammatory changes surround the pancreas compatible with acute pancreatitis. No fluid collection or pancreatic necrosis. Splenic and portal veins are patent. Stomach and small bowel are unremarkable. Appendix is unremarkable. Colon is predominantly collapsed with mild wall thickening. Abdominal aorta is normal caliber. No lymp hadenopathy. No free fluid or pneumoperitoneum. Urinary bladder is nondistended. Bilateral ovarian follicles or cysts. Uterus is unremarkable. No free pelvic fluid. Osseous structures and soft tissues are unremarkable. IMPRESSION: 1. Acute pancreatitis without complication. No fluid collection or pancreatic necrosis.2. Mild colonic wall thickening of unknown significance. 3. Diffuse hepatic steatosis. SL: [id number] PAGE 1 Signed Report (CONTINUED) Name: NNAMDI BARTH [place] : 1990 Age/S: 28 / F [address] [place] [address] Blvd Unit #: [id number] Loc: [place] [address] Phys: Tete Culp NP Acct: [id number] Dis Date: 07/01/2019 Status: DIS IN PHONE #: [phone] Exam Date: 06/08/2019 1622 FAX #: [phone] Reason: Upper abd pain, HX pancreatitis EXAMS: CPT CODE: [id number] CT ABD PELVIS W/CONT 69025 <Continued> at 1642 Reported and signed by: Cameron Dixon M.D. CC: Aamir Meehan MD; Tete Culp NP Technologist:RT Valdemar(R)(CT) CTDI: DLP: Trnscb Date/Time: 06/08/2019 (1641) [email or web address] Orig Print D/T: S: 06/08/2019 (4455) PAGE 2 Signed ReportHEPATIC FUNCTION [id number] 16:15:00 Test Item Value Reference Range Interpretation Comments TOTAL PROTEIN (test code = PROT) 6.5 g/dL 6.4-8.2 N ALBUMIN (test code = ALB) 3.50 g/dL 3.4-5.0 N BILIRUBIN TOTAL (test code = 0.4 MG/DL <1.5 N BILT) BILIRUBIN DIRECT (test code = 0.20 MG/DL 0.0-0.30 N BILD) BILIRUBIN INDIRECT (test code = 0.20 MG/DL BILIND) SGOT/AST (test code = AST) 239 IUnit/L 15-37 H SGPT/ALT (test code = ALT) 70 IUnit/L 15-65 H ALKALINE PHOSPHATASE TOTAL (test 132 IUnit/L 20-125 H code = ALKP) [id number] 16:15:00 Test Item Value Reference Range Interpretation Comments LIPASE (test code = LIP) 2511 IUnit/L 73-393 H HCG SERUM [id number] 16:15:00 Test Item Value Reference Range Interpretation Comments HCG SERUM QUAL (test code = SERUM NEGATIVE NEGATIVE HCGQL) [id number] 16:15:00 Test Item Value Reference Range Interpretation Comments ALCOHOL (test code 0.339 G/dL <0.003 HH Ethyl Al cohol = ALC) Interpretation: 0.100 gm/dL - Legally Intoxic ated 0.300-0.400 gm/dL - Severely Intoxi cated >0.400 gm/ dL - Potentially LethalResults a re for Medical purpose s only, and not for Leg al orEmployment ev aluation purposes. HEPATIC FUNCTION [id number] 16:00:00 Test Item Value Reference Range Interpretation Comments TOTAL PROTEIN (test code = PROT) g/dL 6.4-8.2 ALBUMIN (test code = ALB) g/dL 3.4-5.0 BILIRUBIN TOTAL (test code = BILT) MG/DL <1.5 BILIRUBIN DIRECT (test code = BILD) MG/DL 0.0-0.30 SGOT/AST (test code = AST) IUnit/L 15-37 SGPT/ALT (test code = ALT) IUnit/L 15-65 ALKALINE PHOSPHATASE TOTAL (test IUnit/L 20-125 code = ALKP) [id number] 16:00:00 Test Item Value Reference Range Interpretation Comments LIPASE (test code = LIP) IUnit/L 73-393 HCG SERUM [id number] 16:00:00 Test Item Value Reference Range Interpretation Comments HCG SERUM QUAL (test code = SERUM NEGATIVE NEGATIVE HCGQL) [id number] 16:00:00 Test Item Value Reference Range Interpretation Comments ALCOHOL (test code = ALC) G/dL <0.003 CBC W/AUTO [id number] 15:56:00 Test Item Value Reference Range Interpretation Comments WHITE BLOOD CELL (test code = 4.55 x10 3/uL 4.5-11.0 N WBC) RED BLOOD CELL (test code = 4.01 x10 6/uL 3.54-5.02 N RBC) HEMOGLOBIN (test code = HGB) 14.5 g/dL 11.0-15.0 N HEMATOCRIT (test code = HCT) 42.3 % 33.0-45.0 N MEAN CELL VOLUME (test code = 105.5 fL 81.0-99.0 H MCV) MEAN CELL HGB (test code = MCH) 36.2 pg 27.0-33.0 H MEAN CELL HGB CONCETRATION 34.3 g/dL 33.0-37.0 N (test code = MCHC) RED CELL DISTRIBUTION WIDTH CV 13.7 % 11.5-14.5 N (test code = RDW) RED CELL DISTRIBUTION WIDTH SD 53.5 fL 37.0-54.0 N (test code = RDW-SD) PLATELET COUNT (test code = 154 x10 3/uL 150-400 N PLT) MEAN PLATELET VOLUME (test code 9.9 fL 7.0-9.0 H = MPV) NEUTROPHIL % (test code = NT%) 34.3 % 56.0-77.0 L IMMATURE GRANULOCYTE % (test 0.4 % 0.0-2.0 N code = IG%) LYMPHOCYTE % (test code = LY%) 51.9 % 14.0-32.0 H MONOCYTE % (test code = MO%) 10.1 % 4.8-9.0 H EOSINOPHIL % (test code = EO%) 1.8 % 0.3-3.7 N BASOPHIL % (test code = BA%) 1.5 % 0.0-2.0 N NUCLEATED RBC % (test code = 0.0 % 0-0 N NRBC%) NEUTROPHIL # (test code = NT#) 1.56 x10 3/uL 2.0-7.6 L IMMATURE GRANULOCYTE # (test 0.02 x10 3/uL 0.00-0.03 N code = IG#) LYMPHOCYTE # (test code = LY#) 2.36 x10 3/uL 1.0-3.8 N MONOCYTE # (test code = MO#) 0.46 x10 3/uL 0.1-0.8 N EOSINOPHIL # (test code = EO#) 0.08 x10 3/uL 0.0-0.2 N BASOPHIL # (test code = BA#) 0.07 x10 3/uL 0.0-0.2 N NUCLEATED RBC # (test code = 0.00 x10 3/uL 0.0-0.1 N NRBC#) MANUAL DIFF REQUIRED (test code NO = MDIFF) RBC [id number] 15:56:00 Test Item Value Reference Range Interpretation Comments ANISOCYTOSIS (test code = ANISO) CBC W/AUTO [id number] 15:56:00 Test Item Value Reference Range Interpretation Comments WHITE BLOOD CELL (test code = 4.55 x10 3/uL 4.5-11.0 N WBC) RED BLOOD CELL (test code = 4.01 x10 6/uL 3.54-5.02 N RBC) HEMOGLOBIN (test code = HGB) 14.5 g/dL 11.0-15.0 N HEMATOCRIT (test code = HCT) 42.3 % 33.0-45.0 N MEAN CELL VOLUME (test code = 105.5 fL 81.0-99.0 H MCV) MEAN CELL HGB (test code = MCH) 36.2 pg 27.0-33.0 H MEAN CELL HGB CONCETRATION 34.3 g/dL 33.0-37.0 N (test code = MCHC) RED CELL DISTRIBUTION WIDTH CV 13.7 % 11.5-14.5 N (test code = RDW) RED CELL DISTRIBUTION WIDTH SD 53.5 fL 37.0-54.0 N (test code = RDW-SD) PLATELET COUNT (test code = 154 x10 3/uL 150-400 N PLT) MEAN PLATELET VOLUME (test code 9.9 fL 7.0-9.0 H = MPV) NEUTROPHIL % (test code = NT%) 34.3 % 56.0-77.0 L IMMATURE GRANULOCYTE % (test 0.4 % 0.0-2.0 N code = IG%) LYMPHOCYTE % (test code = LY%) 51.9 % 14.0-32.0 H MONOCYTE % (test code = MO%) 10.1 % 4.8-9.0 H EOSINOPHIL % (test code = EO%) 1.8 % 0.3-3.7 N BASOPHIL % (test code = BA%) 1.5 % 0.0-2.0 N NUCLEATED RBC % (test code = 0.0 % 0-0 N NRBC%) NEUTROPHIL # (test code = NT#) 1.56 x10 3/uL 2.0-7.6 L IMMATURE GRANULOCYTE # (test 0.02 x10 3/uL 0.00-0.03 N code = IG#) LYMPHOCYTE # (test code = LY#) 2.36 x10 3/uL 1.0-3.8 N MONOCYTE # (test code = MO#) 0.46 x10 3/uL 0.1-0.8 N EOSINOPHIL # (test code = EO#) 0.08 x10 3/uL 0.0-0.2 N BASOPHIL # (test code = BA#) 0.07 x10 3/uL 0.0-0.2 N NUCLEATED RBC # (test code = 0.00 x10 3/uL 0.0-0.1 N NRBC#) MANUAL DIFF REQUIRED (test code NO = MDIFF) RBC [id number] 15:56:00 Test Item Value Reference Range Interpretation Comments ANISOCYTOSIS (test code = ANISO)
[2020-09-19] MEDS ORDERED: ONDANSETRON 4 MG/2 ML VIAL ONE (12:08)
[2020-09-19] MEDS ORDERED: MORPHINE 4 MG/ML SYR ONE ×2 (12:08→13:21)
[2020-09-19 12:43] LABS: Absolute Lymphocytes (CBC) 2.9 K/uL (0.7-4.9); Basophils % 1.5 % (0-1.3); Hematocrit 40.5 % (36.0-45.0); Lymphocytes % 28.3 % (15.3-44.8); MPV 7.5 fL (7.6-11.3); RBC Red Blood Cell Count 4.23 M/uL (3.86-4.86)
[2020-09-19] MEDS ORDERED: FOLIC ACID 1 MG, MULTIVITAMINS INJ 10 ML, THIAMINE HCL 100 MG in NA CHLORIDE 0.9% 1,000 ML IV ONE (13:00)
[2020-09-19 13:02] LABS: ALT/SGPT 36 U/L (12-78); AST/SGOT 60 U/L (15-37); Albumin 3.5 g/dL (3.4-5.0); Alkaline Phosphatase 136 U/L (45-117); BUN Blood Urea Nitrogen 7 mg/dL (7-18); Bicarbonate 27 mmol/L (21-32); Bilirubin Direct < 0.1 mg/dL (0-0.2); Bilirubin Total 0.2 mg/dL (0.2-1.0); Glucose Level 74 mg/dL (74-106); Lipase 140 U/L (73-393); Potassium 3.9 mmol/L (3.5-5.1); Protein, Total 7.7 g/dL (6.4-8.2); Sodium Level 141 mmol/L (136-145)
--- NOTE | 2020-09-19 13:09 | RAD REPORT ---
EXAM DESCRIPTION: CT - Abdomen Pelvis W Contrast - 09/19/2020 12:43 pm CLINICAL HISTORY: Abdominal pain COMPARISON: none. TECHNIQUE: Computed axial tomography of the abdomen pelvis was obtained. 100 cc Isovue-300 was admin istered intravenously. Oral contrast was not requested which limits evaluation of bowel. All CT scans are performed using dose optimization technique as appropriate and may include automated exposure control or mA/KV adjustment according to patient size. FINDINGS: 3 centimeters of a biliary stent lies within the common bile duct. The majority of stent l ies within the duodenum. Common bile duct measures 9 millimeters. Cholecystectomy. There is no evidence of diverticulitis. Normal appendix Mild stranding adjacent to the pancreatic head. Remainder of the pancreas is unremarkable. Liver, spleen, adrenals and kidneys demonstrate no significant abnormality 4.7 centimeter left ovarian cyst without significant free fluid IMPRESSION: 4.7 centimeter left ovarian cyst without significant free fluid Mild pancreatitis The majority of a biliary stent lies within the duodenum. There is mild dilatation of common bile duct. This can be normal in a patient status post cholecystec horacio. Pathology such as a stricture or stone can also result in this appearance. This should be corre lated clinically and with appropriate labs
--- NOTE | 2020-09-19 13:42 | ER ---
Nurse's Notes [facility] Name: Tiffany Barth Age: 30 yrs Sex: Female : 1990 Arrival Date: 09/19/2020 Time: 11:38 Bed 16 Private MD: Diagnosis: Acute pancreatitis-mild Presentation: 09/19 11:38 Chief complaint: EMS states: Abdominal pain, diffuse, tender on all quadrants since ca1 0500 today. N/V since. HX of pancreatitis, gall bladder disease and seizures. Coronavirus screen: Client denies travel out of the [place] in the last 14 days. nausea, vomiting. Client presents with at least one sign or symptom that may indicate coronavirus-19. Standard/surgical mask placed on the client. Provider contacted for isolation considerations. Ebola Screen: Patient negative for fever greater than or equal to 101.5 degrees Fahrenheit, and additional compatible Ebola Virus Disease symptoms Patient denies exposure to infectious person. Patient denies travel to an Ebola-affected area in the 21 days before illness onset. No symptoms or risks identified at this time. Initial Sepsis Screen: Does the patient meet any 2 criteria? No. Patient's initial sepsis screen is negative. Does the patient have a suspected source of infection? No. Patient's initial sepsis screen is negative. Risk Assessment: Do you want to hurt yourself or someone else? Patient reports no desire to harm self or others. Onset of symptoms was September 19, 2020 at 05:00. 11:38 Method Of Arrival: EMS: [facility] 11:38 Acuity: KENNETH 3 ca1 Triage Assessment: 11:40 General: Appears distressed, uncomfortable, Behavior is cooperative, agitated, anxious. bp Pain: Complains of pain in abdomen. EENT: No signs and/or symptoms were reported regarding the EENT system. Neuro: Level of Consciousness is awake, alert, obeys commands, Oriented to Appropriate for age. Cardiovascular: No deficits noted. Respiratory: No deficits noted. GI: Reports nausea, vomiting. : No signs and/or symptoms were reported regarding the genitourinary system. Derm: No deficits noted. Musculoskeletal: No deficits noted. Historical: - Allergies: 11:38 No Known Allergies; ca1 - Home Meds: 11:38 None [Active]; ca1 - PMHx: 11:38 Pancreatitis; gall bladder disease; Seizures; ca1 - PSHx: 11:38 Cholecystectomy; abdominal surgery; stomach stents; ca1 - Immunization history:: Flu vaccine is not up to date. - Social history:: Smoking status: Patient reports the use of cigarette tobacco products, smokes one-half pack cigarettes per day, Patient uses alcohol, on a daily basis. Vodka 1L. Screenin:20 Abuse screen: Denies threats or abuse. Denies injuries from another. Nutritional bp screening: No deficits noted. Tuberculosis screening: No symptoms or risk factors identified. Fall Risk None identified. Assessment: 11:40 General: SEE TRIAGE NOTE. bp 12:32 Reassessment: No changes from previously documented assessment. Patient and/or family bp updated on plan of care and expected duration. Pain level reassessed. Patient is alert, oriented x 3, equal unlabored respirations, skin warm/dry/pink. PIV IN PLACE, PT TO CT. GI: Bowel sounds present X 4 quads. Abd is soft X 4 quads. 13:49 Reassessment: D/C ON HOLD FOR IVF. bp 15:36 Reassessment: [facility] CONTACTED FOR TRANSPORT. bp 16:58 Reassessment: [facility] RE-CONTACTED, TRANSPORT EN ROUTE. bp Vital Signs: 11:38 BP 117 / 96; Pulse 113; Resp 18 S; Temp 98.3(O); Pulse Ox 100% on R/A; Weight 61.23 kg ca1 (R); Height 5 ft. 2 in. (157.48 cm) (R); Pain 7/10; 12:21 BP 136 / 85; Pulse 99; Resp 18; Pulse Ox 100% on R/A; mh5 13:49 BP 136 / 93; Pulse 97; Resp 17; Pulse Ox 97% ; bp 14:46 BP 129 / 86; Pulse 96; Resp 17; Pulse Ox 97% ; bp 15:36 BP 113 / 83; Pulse 82; Resp 16; Pulse Ox 96% ; bp 16:58 BP 124 / 91; Pulse 93; Resp 17; Temp 98; Pulse Ox 97% ; bp 11:38 Body Mass Index 24.69 (61.23 kg, 157.48 cm) ca1 ED Course: 11:38 Patient arrived in ED. ds1 11:38 Razia Mcknight FNP-C is PHCP. kb 11:38 Aubrey Stallings MD is Attending Physician. kb 11:38 Arm band placed on right wrist. ca1 11:39 Chris Faith, GONZALES is Primary Nurse. bp 11:49 Triage completed. ca1 12:15 Inserted saline lock: 22 gauge in right wrist, using aseptic technique. Blood collected.bp 12:20 Patient has correct armband on for positive identification. Bed in low position. Call bp light in reach. Side rails up X2. 12:43 CT Abd/Pelvis - IV Contrast Only In Process Unspecified. EDMS 13:19 Seizure precautions initiated. ca1 16:58 No provider procedures requiring assistance completed. IV discontinued, intact, bp bleeding controlled, No redness/swelling at site. Pressure dressing applied. Administered Medications: 12:20 Drug: Zofran (Ondansetron) 4 mg Route: IVP; Site: right wrist; bp 13:50 Follow up: Response: Nausea is decreased bp 12:20 Drug: morphine 4 mg Route: IVP; Site: right wrist; bp 13:50 Follow up: Response: Pain is decreased bp 12:30 Drug: Banana Bag - (NS 0.9% 1000 ml, foLIC Acid 1 mg, Thiamine 100 mg, Multivitamin 1 bp amp) Route: IV; Rate: calculated rate; Site: right wrist; 17:00 Follow up: IV Status: Completed infusion; IV Intake: 1000ml bp 13:06 Drug: morphine 4 mg {Note: rass 0.} Route: IVP; Site: right hand; ca1 13:51 Follow up: Response: Pain is decreased bp 13:50 Drug: Ativan 1 mg Route: IVP; Site: right wrist; bp 15:35 Follow up: Response: Pain is decreased bp 13:50 Drug: NS 0.9% 1000 ml Route: IV; Rate: 1000 ml; Site: right wrist; bp 15:35 Follow up: IV Status: Completed infusion; IV Intake: 1000ml bp 15:30 Drug: Ketorolac 30 mg Route: IVP; Site: right wrist; bp 16:59 Follow up: Response: Pain is decreased bp Intake: 15:35 IV: 1000ml; Total: 1000ml. bp 17:00 IV: 1000ml; Total: 2000ml. bp Outcome: 13:42 Discharge ordered by . kb 16:58 Discharged to Rehab Facility bp 16:58 Condition: stable 16:58 Discharge instructions given to patient, Instructed on discharge instructions, follow up and referral plans. Demonstrated understanding of instructions, follow-up care. 17:00 Patient left the ED. bp Signatures: Dispatcher [employer] Razia Rosales, TESSA-Fausto JIMENEZP-Catie Hayes ds1 Britta Longo 5 Chris Faith RN RN bp Angeli Garcia RN RN ca1 Corrections: (The following items were deleted from the chart) 11:49 11:38 Transition of care: patient was received from another setting of care ca1 (rehabilitation facility), ca1
--- NOTE | 2020-09-19 13:43 | EDPHYS ---
Physician Documentation [facility] Name: Tiffany Barth Age: 30 yrs Sex: Female : 1990 Arrival Date: 09/19/2020 Time: 11:38 Bed 16 Private MD: ED Physician Aubrey Stallings HPI: 09/19 14:37 This 30 yrs old Female presents to ER via EMS with complaints of Abdominal kb Pain. 14:37 The patient presents with abdominal pain in the upper abdomen. Onset: The kb symptoms/episode began/occurred yesterday. The symptoms do not radiate. Associated signs and symptoms: Pertinent positives: nausea, vomiting, and diarrhea, Pertinent negatives: fever. The symptoms are described as constant. Modifying factors: The symptoms are alleviated by nothing, the symptoms are aggravated by pressure. Severity of pain: At its worst the pain was moderate in the emergency department the pain is unchanged. The patient has experienced similar episodes in the past. The patient has not recently seen a physician. Historical: - Allergies: 11:38 No Known Allergies; ca1 - Home Meds: 11:38 None [Active]; ca1 - PMHx: 11:38 Pancreatitis; gall bladder disease; Seizures; ca1 - PSHx: 11:38 Cholecystectomy; abdominal surgery; stomach stents; ca1 - Immunization history:: Flu vaccine is not up to date. - Social history:: Smoking status: Patient reports the use of cigarette tobacco products, smokes one-half pack cigarettes per day, Patient uses alcohol, on a daily basis. Vodka 1L. ROS: 14:33 Constitutional: Negative for fever, chills, and weight loss, Cardiovascular: Negative kb for chest pain, palpitations, and edema, Respiratory: Negative for shortness of breath, cough, wheezing, and pleuritic chest pain, MS/Extremity: Negative for injury and deformity, Skin: Negative for injury, rash, and discoloration, Neuro: Negative for headache, weakness, numbness, tingling, and seizure. 14:33 Abdomen/GI: Positive for abdominal pain, nausea, vomiting, and diarrhea, Negative for constipation. Exam: 14:33 Constitutional: This is a well developed, well nourished patient who is awake, alert, kb and in no acute distress. Head/Face: Normocephalic, atraumatic. Chest/axilla: Normal chest wall appearance and motion. Nontender with no deformity. No lesions are appreciated. Cardiovascular: Regular rate and rhythm with a normal S1 and S2. No gallops, murmurs, or rubs. Normal PMI, no JVD. No pulse deficits. Respiratory: Lungs have equal breath sounds bilaterally, clear to auscultation and percussion. No rales, rhonchi or wheezes noted. No increased work of breathing, no retractions or nasal flaring. Skin: Warm, dry with normal turgor. Normal color with no rashes, no lesions, and no evidence of cellulitis. MS/ Extremity: Pulses equal, no cyanosis. Neurovascular intact. Full, normal range of motion. 14:33 Constitutional: The patient appears anxious. 14:33 Abdomen/GI: Inspection: abdomen appears normal, Bowel sounds: normal, in all quadrants, Palpation: soft, in all quadrants, moderate abdominal tenderness, in the right upper quadrant and left upper quadrant. 14:33 Neuro: Orientation: is normal, Mentation: is normal, Motor: is normal, Sensation: is normal, Gait: is steady. Vital Signs: 11:38 BP 117 / 96; Pulse 113; Resp 18 S; Temp 98.3(O); Pulse Ox 100% on R/A; Weight 61.23 kg ca1 (R); Height 5 ft. 2 in. (157.48 cm) (R); Pain 7/10; 12:21 BP 136 / 85; Pulse 99; Resp 18; Pulse Ox 100% on R/A; mh5 13:49 BP 136 / 93; Pulse 97; Resp 17; Pulse Ox 97% ; bp 14:46 BP 129 / 86; Pulse 96; Resp 17; Pulse Ox 97% ; bp 15:36 BP 113 / 83; Pulse 82; Resp 16; Pulse Ox 96% ; bp 16:58 BP 124 / 91; Pulse 93; Resp 17; Temp 98; Pulse Ox 97% ; bp 11:38 Body Mass Index 24.69 (61.23 kg, 157.48 cm) ca1 MDM: 11:38 Patient medically screened. kb 14:31 Data reviewed: vital signs, nurses notes. Data reviewed: I have discussed the patient's kb presentation/case with the attending Emergency Department Physician;. Data interpreted: Pulse oximetry: on room air is 97 %. Interpretation: normal. Counseling: I had a detailed discussion with the patient and/or guardian regarding: the historical points, exam findings, and any diagnostic results supporting the discharge/admit diagnosis, lab results, radiology results, the need for outpatient follow up, a family practitioner, to return to the emergency department if symptoms worsen or persist or if there are any questions or concerns that arise at home. 09/19 11:39 Order name: Basic Metabolic Panel; Complete Time: 13:07 kb 09/19 11:39 Order name: CBC with Diff; Complete Time: 12:54 kb 09/19 11:39 Order name: Hepatic Function; Complete Time: 13:07 kb 09/19 11:39 Order name: Lipase; Complete Time: 13:07 kb 09/19 11:39 Order name: ETOH Level; Complete Time: 12:54 kb 09/19 11:39 Order name: CT Abd/Pelvis - IV Contrast Only; Complete Time: 13:12 kb 09/19 11:39 Order name: IV Saline Lock; Complete Time: 12:49 kb 09/19 11:39 Order name: Labs collected and sent; Complete Time: 12:49 kb 09/19 11:39 Order name: Seizure Precautions; Complete Time: 11:47 kb Administered Medications: 12:20 Drug: Zofran (Ondansetron) 4 mg Route: IVP; Site: right wrist; bp 13:50 Follow up: Response: Nausea is decreased bp 12:20 Drug: morphine 4 mg Route: IVP; Site: right wrist; bp 13:50 Follow up: Response: Pain is decreased bp 12:30 Drug: Banana Bag - (NS 0.9% 1000 ml, foLIC Acid 1 mg, Thiamine 100 mg, Multivitamin 1 bp amp) Route: IV; Rate: calculated rate; Site: right wrist; 17:00 Follow up: IV Status: Completed infusion; IV Intake: 1000ml bp 13:06 Drug: morphine 4 mg {Note: rass 0.} Route: IVP; Site: right hand; ca1 13:51 Follow up: Response: Pain is decreased bp 13:50 Drug: Ativan 1 mg Route: IVP; Site: right wrist; bp 15:35 Follow up: Response: Pain is decreased bp 13:50 Drug: NS 0.9% 1000 ml Route: IV; Rate: 1000 ml; Site: right wrist; bp 15:35 Follow up: IV Status: Completed infusion; IV Intake: 1000ml bp 15:30 Drug: Ketorolac 30 mg Route: IVP; Site: right wrist; bp 16:59 Follow up: Response: Pain is decreased bp Disposition: 17:21 Co-signature as Attending Physician, Aubrey Stallings MD. rn Disposition: 09/19/20 13:42 Discharged to Home. Impression: Acute pancreatitis - mild. - Condition is Stable. - Discharge Instructions: Acute Pancreatitis, [id number]. - Medication Reconciliation Form, Thank You Letter, Antibiotic Education, Prescription Opioid Use form. - Follow up: Emergency Department; When: As needed; Reason: Worsening of condition. Follow up: Private Physician; When: 2 - 3 days; Reason: Recheck today's complaints, Continuance of care, Re-evaluation by your physician. Signatures: Dispatcher [employer] EDMS Razia Mcknight, TESSA-C POWERHOUSE ATTENDANT-CkCornelius Sales PA PA jmm Nieto, Roman, MD MD rn Peltier, Brian, RN RN bp AcobAngeli RN RN ca1 Corrections: (The following items were deleted from the chart) 17:00 13:42 09/19/2020 13:42 Discharged to Home. Impression: Acute pancreatitis - mild. bp Condition is Stable. Forms are Medication Reconciliation Form, Thank You Letter, Antibiotic Education, Prescription Opioid Use. Follow up: Emergency Department; When: As needed; Reason: Worsening of condition. Follow up: Private Physician; When: 2 - 3 days; Reason: Recheck today's complaints, Continuance of care, Re-evaluation by your physician. kb
[2020-09-19] MEDS ORDERED: LORazepam 2 MG/ML VIAL ONE (14:02)
[2020-09-19] MEDS ORDERED: NA CHLORIDE 0.9% 1,000 ML ONE (14:02)
[2020-09-19] MEDS ORDERED: KETOROLAC 30 MG/ML INJ ONE (15:48)
[2020-09-19 17:44] VITALS: BP 124/91; TEMP 98; O2SAT 97
== END 2020-09-19 17:00 | disposition home or self-care (01) ==
LOC: ER 11:37
DX: K85.90 Acute pancreatitis without necrosis or infection, unspecified (principal); F17.210 Nicotine dependence, cigarettes, uncomplicated
CPT/HCPCS: 36415; 74177; 80048; 80076; 80320; 82565; 83690; 85025; 99284; J2405; J3411; J7030; Q9967